=== PATIENT | male | born 1935 | race Caucasian/White ===

== ENCOUNTER 2021-09-21 22:28 | Inpatient (IN) | payer MEDICARE, MEDICAID, SELFPAY ==
[2021-09-21 21:29] VITALS: BMI 27.8
[2021-09-21 22:03] VITALS: BP 133/67; PULSE 83; RESP 16; TEMP 36.6; O2SAT 97
--- NOTE | 2021-09-21 22:18 | HP.PCM_ITS ---
[facility] - General General Date of Admission: 09/21/21 Date of Service: 09/21/21 Chief Complaint: Acute kidney failure HPI Narrative ELENA PAZ, is a 85 M who presents with chief complaint of mechanical fall with multiple contusions and abrasions. Patient has significant past medical history of fall 2 weeks ago with left upper extremity swelling and edema. Laboratory studies remarkable for an increase from creatinine level to 6.0 from baseline in the low twos. Patient denies chest pain, shortness of breath, fever or chills. Patient states his pain is under control at present time. He has a social history of having been 63 years and states his is living at home and hobbles around and when I asked if there was someone else that is looking after her he did not indicate that there was. Patient will be admitted for general medical floor with nephrology consult in the morning to consider dialysis. [facility] Medical History (Updated 09/21/21 @ 22:[address] Sae Connelly MD) Abdominal ascites Acute insomnia Atherosclerotic heart disease of [place] coronary artery without angina pectoris Benign prostatic hyperplasia without lower urinary tract symptoms Cardiomyopathy, unspecified Chronic kidney disease, stage 3 unspecified Cirrhosis Coronary artery disease Depression Diabetes Essential (primary) hypertension Former smoker GERD (gastroesophageal reflux disease) Heart failure, unspecified Hiatal hernia Hypertension ICD (implantable cardioverter-defibrillator) in place Insomnia Irregular heart beat Myocardial infarct Pressure ulcer, buttock Stroke/cerebrovascular accident Transient cerebral ischemic attack, unspecified Type 2 diabetes mellitus Unspecified atrial fibrillation Home Medications carvedilol 12.5 mg tablet 12.5 mg PO BID HEART 07/02/21 [History Last Taken 09/21/21 07:00] glipizide 5 mg tablet 5 mg PO BID DIABETES 07/02/21 [History Last Taken 09/21/21 07:00] omeprazole 20 mg capsule,delayed release 20 mg PO DAILY GERD 07/02/21 [History Last Taken Unknown] tamsulosin 0.4 mg capsule (Flomax) 0.4 mg PO BID URINATION 07/02/21 [History Last Taken Unknown] atorvastatin 40 mg tablet 40 tab PO QHS CHOLESTEROL 09/21/21 [History Last Taken Unknown] bumetanide 1 mg tablet 1 tab PO BID WATER PILL 09/21/21 [History Last Taken 09/21/21 07:00] Allergy/AdvReac Type Severity Reaction Status Date / Time No Known Allergies Allergy Verified 07/02/21 16:31 Family History (Updated 07/02/21 @ 16:38 by Thelma Reyes) Mother Bladder cancer Surgical History (Updated 09/21/21 @ 21:50 by Shelly Garcias) Hx of CABG Social History (Updated 07/02/21 @ 16:39 by Thelma Reyes) Smoking Status: Former smoker alcohol intake: current alcohol intake frequency: 0-2 drinks per day ROS Constitutional Constitutional: Denies anorexia Eyes Eyes: Denies change in vision ENT HEENT: Denies abnormal hearing Cardiovascular Cardiovascular: Denies chest pain Respiratory/Chest Respiratory/Chest: Denies cough Gastrointestinal Gastrointestinal: Denies abdominal pain Genitourinary Genitourinary: Denies dysuria Musculoskeletal Musculoskeletal: Denies extremity pain Integumentary Integumentary: Reports wounds Neurologic Neurologic: Denies abnormal speech Psychiatric Psychiatric: Denies anxiety Vital Signs Vital Signs Vital Signs: 09/21/21 22:03 Temperature 98 F Temperature Source Oral Pulse Rate 83 Respiratory Rate 16 Blood Pressure 133/67 H Blood Pressure Mean 89 Blood Pressure Source Monitor Blood Pressure Position Semi-Fowlers Blood Pressure Location Right Arm Pulse Ox 97 Oxygen Delivery Method Room Air Weight Weight: 194 lb Body Mass Index (BMI) 27.8 Physical Exam Const oriented x3 General Appearance: cooperative and well developed HEENT normocephalic HEENT Narrative: Abrasion on forehead and abrasion on nasal bridge Eyes PERRL and EOMs intact bilaterally Lymph Lymphatic: no lymphadenopathy noted Resp normal respiratory effort, normal air movement and clear to auscultation bilaterally Cardio regular rate, regular rhythm, S1 normal heart sound and S2 normal heart sound GI normal to inspection, nondistended, normoactive bowel sounds Extremity Extremity Narrative: Left upper extremity marked edema and ecchymosis Neuro CN's II-XII intact bilaterally Speech: speech normal Psych thought process normal Appearance: appropriate Assessment & Plan Assessment/Plan (1) Acute renal failure: (2) Coronary artery disease: (3) Diabetes: (4) Essential (primary) hypertension: (5) Depression: PLAN: Plan 1.?Acute renal failure?admit patient to general medical floor, consult Dr. Luis jensen n the a.m. Repeat BMP in the morning gentle IV hydration overnight at normal saline 100 cc/h 2. Depression?continue home medication 3. Diabetes?can check an A1c we will hold metformin 4. DVT prophylaxis?SCDs due to renal failure. Charges/Coding Visit Charges Inpatient E&M: 35102 Init Hosp L3
[2021-09-21] MEDS: Carvedilol 12.5 MG Tablet PO (23:09)
[2021-09-21] MEDS: Tamsulosin HCl 0.4 MG Capsule PO (23:10)
[2021-09-21] MEDS: Bumetanide 0.5 MG Tablet 1 MG PO (23:10)
[2021-09-21] MEDS: 0.9% Normal Saline 1,000 ML 100 ML IV (23:10)
[2021-09-21] MEDS: 0.9% Saline Lock 10 ML Syringe IV (23:10)
[2021-09-21] MEDS: glipiZIDE 5 MG Tablet PO (23:16)
[2021-09-21] MEDS: Morphine 2 MG/ML Syringe IV (23:23)
[2021-09-22 04:00] VITALS: BP 112/64; PULSE 72; RESP 16; TEMP 36.6; O2SAT 97
[2021-09-22 06:39] LABS: Anion Gap 12 (5-15); BUN 87 mg/dL (7-18); BUN/Creat Ratio 14.5 RATIO (10-20); Chloride 104 mmol/L (98-107); Creatinine, Serum 5.99 mg/dL (0.70-1.30); EST Glomerular Filtration Rate 10 mL/min (>60); Est Glom Filt Rate - Afr Amer 12 mL/min (>60); Estimated Creatinine Clearance 9.31 ml/min; Glucose 155 mg/dL (74-106); Potassium 3.9 mmol/L (3.5-5.1); Sodium Level 135 mmol/L (136-145)
[2021-09-22 09:32] VITALS: BP 98/68; PULSE 77; RESP 16; TEMP 36.7; O2SAT 95
[2021-09-22] MEDS: 0.9% Normal Saline 1,000 ML 100 ML IV ×2 (09:40→20:01)
--- NOTE | 2021-09-22 09:40 | CASEMGMT ---
Addendum entered by Ksenia Rothman 09/22/21 10:44: TC to pt , she states that she feels pt can return home with his HHC. States his HHC is [facility]. She states she will be in today around noon. TC to [facility], spoke with . She is unable to tell what services pt is receiving. She took down JENY SANDS name and number and will have nurse who saw the patient call. Original Note: JENY SANDS Assessment: Face to Face with pt for initial transition planning/care coordination assessment. JENY SANDS introduced self and role at [facility], pt voices understanding and consents to assessment. Pt is A/O x4 and answers all questions appropriately at this time. Pt sitting in bed in no distress. Care providers, pharmacy, and demographics verified/updated. Admitting Dx: acute renal failure PCP:Maury Specialists:[facility]; pt is unsure of any other specialists [facility] Insurance: [employer] [facility] Prescription Benefit: yes LW/HPOA: Pt states he has a LW/DPOA and his DPOA is his , Tawnya Alejo. He is aware it is not on file at [facility] and he may bring in to be scanned into the chart. LNOK: Tawnya Alejo, Living Arrangements: Pt lives with in a two story apartment with 2 steps to enter without a rail. Pt states he has 12 steps to go to the bedroom. Pt sponge bathes self only. Pt denies concerns at home although has fallen twice recently and just got out of the hospital last week. Transportation: Pt has not drove since last November d/t his vision. Pt transports him to medical appts. Pt denies concerns with transportation. DME/HHC/SNF: Pt has a cane that he uses. He also has a walker, grab bars in the bathroom. Pt does not have a BGM, states he does not check his blood sugars. Reports he does not need to as his hgb A1C is 5.8. Pt states he has HHC that was set up from the last hospital stay from [place] that is supposed to see him today. He is unsure of what the name of the agency is or what services he will be receiving. Pt states he has been to [facility] but states he has no interest in returning to any SNF and does not even want it mentioned to him. Discussed that he has fallen twice recently, pt states he will just use his walker. Discussed with him that we will see how well he does with therapy and what recommendations are made. He is agreeable to this. Pt states no concerns with going home at time of dc. He has designated his to be his sportspersons for dc planning. He states that she is at home worrying, so not to talk to her too much. Pt states no further concerns/needs. CM to follow. Advised pt to ask CM if any further question/concerns/needs arise, voices understanding. Pt Goal: Home with HHC resumption Plan: TBD
[2021-09-22] MEDS: Carvedilol 12.5 MG Tablet PO ×2 (09:41→16:59)
[2021-09-22] MEDS: Glucerna Shake 120 ML LIQUID PO ×3 (09:41→16:59)
[2021-09-22] MEDS: Tamsulosin HCl 0.4 MG Capsule PO ×2 (09:41→21:24)
[2021-09-22] MEDS: Pantoprazole Sodium 20 MG Tablet PO (09:42)
[2021-09-22] MEDS: glipiZIDE 5 MG Tablet PO (09:42)
[2021-09-22 09:44] LABS: International Normalized Ratio 1.3; Prothrombin Time (Protime)PT. 15.5 SECONDS (11.7-14.9)
[2021-09-22 09:48] LABS: Absolute Lymphocyte Count 1.46 X10^3/uL (0.83-4.51); Absolute Neutrophil Count 3.9 X10^3/uL (2.0-7.7); Basophil# 0.01 X10^3/uL; Basophil% 0.2 % (0-1); Eosinophil# 0.19 X10^3/uL; Eosinophils% 2.9 % (0-5); Hematocrit 29.3 % (40-54); Hemoglobin 9.8 g/dL (13.0-16.5); Lymphocyte # 1.46 X10^3/ul (0.83-4.51); Lymphocyte % 22.3 % (19-41); Mean Corp Hgb Conc 33.4 g/dL (32-36); Mean Corpuscular Hgb 32.2 pg (27.0-32.0); Mean Corpuscular Volume 96.4 fL (80-94); Mean Platelet Vol. 10.8 fl (6.2-12.0); Monocyte# 0.93 X10^3/uL; Monocyte% 14.2 % (0-10); NRBC Flagged by Analyzer 0 % (0-5); Neutrophil # 3.94 X10^3/uL (2.7-7.7); Neutrophil % 60.2 % (47-70); Platelet Count 132 K/mm3 (150-450); RBC Distribution Width CV 14.1 % (11.6-14.6); RBC Distribution Width SD 49.4 fl (35.1-43.9); Red Blood Count 3.04 M/mm3 (4.6-6.2); White Blood Count 6.5 K/mm3 (4.4-11.0)
--- NOTE | 2021-09-22 10:33 | PCM.PN.HOSP ---
Subjective Subjective Doing well, no issues overnight. States that he tripped on the curb and fell denies any lightheadedness or dizziness. Objective Data Objective Data Vital Signs: Vital Signs Temp Pulse Resp BP Pulse Ox 98.1 F 77 16 98/68 95 09/22/21 09:32 09/22/21 09:32 09/22/21 09:32 09/22/21 09:32 09/22/21 09:32 Oxygen Delivery Method Room Air Weight: 194 lb Body Mass Index (BMI) 27.8 Intake & Output: Intake and Output for Last 24 Hours 09/21/21 09/22/21 09/23/21 03:59 03:59 03:59 Intake Total 1000 / 1000 Output Total 250 / 250 Balance 750 / 750 Lab / Micro Data Result Diagrams: 09/22/21 05:23 09/22/21 05:23 Labs: Laboratory Results - last 24 hr 09/22/21 05:23: Sodium 135 L, Potassium 3.9, Chloride 104, Carbon Dioxide 19.0 L, Anion Gap 12, BUN 87 H, Creatinine 5.99 H, Estim Creat Clear Calc 9.31, Est GFR (MDRD) Af Amer 12 L, Est GFR (MDRD) Non-Af 10 L, BUN/Creatinine Ratio 14.5, Glucose 155 H, Calcium 8.0 L 09/22/21 05:23: WBC 6.5, RBC 3.04 L, Hgb 9.8 L, Hct 29.3 L, MCV 96.4 H, MCH 32.2 H, MCHC 33.4, RDW Std Deviation 49.4 H, RDW Coeff of Jewels 14.1, Plt Count 132 L, MPV 10.8, Immature Gran % (Auto) 0.200, Neut % (Auto) 60.2, Lymph % (Auto) 22.3, [place] % (Auto) 14.2 H, Eos % (Auto) 2.9, Baso % (Auto) 0.2, Absolute Neuts (auto) 3.9, Absolute Lymphs (auto) 1.46, Nucleated RBC % 0 09/22/21 05:23: PT 15.5 H, INR 1.3 Physical Exam Const alert, oriented x3 and no apparent distress General Appearance: cooperative HEENT normocephalic and moist oral mucous membranes Eyes PERRL, EOMs intact bilaterally and conjunctivae normal Neck supple and no JVD Resp normal respiratory effort, no retractions and no use of accessory muscles Auscultation: diminished lung sounds; Negative for crackles, rales, rhonchi or wheezes Cardio regular rate, regular rhythm, S1 normal heart sound, S2 normal heart sound and no murmurs GI soft to palpation, non-tender and non-distended; Negative for hepatosplenomegaly Extremity no clubbing, cyanosis or edema Skin Skin Narrative: Multiple lacerations and abrasions over his face and right upper extremity. He has significant bruising and swelling over his left upper extremity from a fall previously. He says it is painful but sensation is intact. Neuro no focal motor deficits and no sensory deficits noted Psych affect normal Appearance: appropriate Assessment & Plan Assessment/Plan (1) Acute renal failure: (2) Coronary artery disease: (3) Diabetes: (4) Essential (primary) hypertension: (5) Depression: PLAN: Plan 1. Acute renal failure/weakness and debility ? Unsure as to the etiology, he is on Bumex at home as well as Coreg ? We will continue with gentle IV hydration and nephrology was consulted for evaluation and assistance in management ? We will consult wound care to help with the use will multiple superficial wounds. ? PT/OT for evaluation and placement in a SNF 2. CAD status post CABG/HTN ? Blood pressures are stable, will continue with his home Coreg ? Hold his Bumex secondary to his renal failure ? Continue with Lipitor 3. DM2 ? Stable ? Hold his home patient placed on a sliding scale insulin 4. GERD ? Stable ? Continue with PPI 5. BPH ? Stable ? Continue with Flomax DVT: SCD's Charges/Coding Visit Charges Inpatient E&M: 01721 Subs Hosp L2
[2021-09-22] MEDS: Bumetanide 0.5 MG Tablet 1 MG PO (10:56)
[2021-09-22 12:05] LABS: Bedside Glucose 160 mg/dL (74-106)
[2021-09-22 14:13] VITALS: BP 97/64; PULSE 71; RESP 18; TEMP 36.7; O2SAT 96
--- NOTE | 2021-09-22 14:31 | CHAPLAIN ---
Type of Pastoral Visit _x__ Initial Visit ___ Follow-up Visit ___ On-call Visit ___ General Patient Visit ___ Spiritual Assessment ___ Family Conference ___ Bereavement ___ Rapid Response ___ Code Blue ___ Other (describe below) Pastoral Care Referral From _x__ Patient ___ Family ___ Nurse ___ Physician ___ Safekeeping Clerk ___ Upper Inspector ___ Other (describe below) Sacrament/Intervention _x__ Active listening ___ Anointing ___ Rastafarian ___ Bereavement ___ Communion ___ Wilda exploration ___ ___ Life review _x__ Prayer ___ Reconciliation ___ Sacrament of Sick _x__ Supportive presence ___ Wedding ___ Other (describe below) Pastoral Comments patient, spouse, and daughter in room; pt states he just wants to go home; pt speaks of his fall and that he does not want to go to a SNF; pt and spouse mention frustrations at not seeing doctors and knowing more about his condition; assurances and compassion given; offer of presence and prayer support which are received by family and pt;
--- NOTE | 2021-09-22 15:29 | CASEMGMT ---
ANNIA from Nelida at [facility] who states pt is active with them with SN, PT and OT services. Spoke with PT regarding pt progress. States pt does not want to go to SNF.
--- NOTE | 2021-09-22 15:58 | PCM.CONS.R ---
Assessment & Plan Assessment/Plan (1) Acute renal failure: PLAN: Creatinine 6.0 baseline unknown however per patient history has been told his creatinine was 2.0 without prior nephrologic evaluation. Will wait on records from [facility] and his PCP office to see if there has been any ultrasounds done in the past. In the meantime continue with diuretics since he has diffuse edema, ascites. Check urine sodium to see if he may have cardiorenal syndrome. History of liver disease, cirrhosis. He may have hepatorenal syndrome as well. Consider GI evaluation. He has coronary artery disease status post CABG with cardiomyopathy status post defibrillator. Suspect that he may have cardiorenal syndrome. He has had diarrhea following his hospitalization at [facility] for pneumonia discharged on antibiotic therapy. Avoid nephrotoxic agents. DW primary service (2) Coronary artery disease: PLAN: Status post CABG and defibrillator. Obtain echo report. EF apparently has been at 35% according to the patient family (3) Diabetes: PLAN: Avoid metformin (4) Essential (primary) hypertension: PLAN: BP stable (5) BPH (benign prostatic hyperplasia): PLAN: History of TURP (6) Cardiomyopathy: PLAN: Status post defibrillator (7) Ascites: PLAN: Requiring paracentesis every 1 to 2 weeks for the past 3 months managed by PCP. (8) Cirrhosis: PLAN: Suggest GI consult. AST ALT have been unremarkable with no history of alcohol use HPI Consult Data Date of Consult: 09/23/21 HPI Narrative Reason for Consultation: Acute renal failure on CKD HPI Narrative: ELENA PAZ, is a 85 M who presents to [facility] transfer from [facility] ER for acute renal failure, left arm hematoma following a fall at his PCPs office yesterday. He was hospitalized at [facility] recently about couple weeks ago for pneumonia started on antibiotic therapy. He complained of diarrhea. He had swelling of his left arm from his initial fall that led to his hospitalization at [facility]. He was discharged home with a diagnosis of CKD that he was not aware of. He had home therapy arranged but has not come out to the house yet. He has a history of cardiomyopathy with defibrillator. He is on diuretic therapy at home. He was told that he had liver disease and required paracentesis about every 2 weeks for the past 3 months according to the daughter present as well as his at his bedside. He had a referral to GI but no therapy was done since records were not sent to GI specialist in [place] that he was able to see sooner. He canceled his appointment with Dr. Lopez in [facility]. They state that his PCP told him that his creatinine was 2.0 in the past and was told not to worry about it. Creatinine at [facility] was 6.28. Creatinine on admission was 5.99. No prior records are available from [facility]. He has a history of BPH status post TURP. He has fallen in the past with right hip fracture. He has swelling of his left arm with ecchymosis, hematoma with significant tenderness to light touch. He has had skin abrasions from trauma. [facility] Medical History (Updated 09/22/21 @ 16:[address] Celeste Smith DO) Abdominal ascites Acute insomnia Atherosclerotic heart disease of [place] coronary artery without angina pectoris Benign prostatic hyperplasia without lower urinary tract symptoms Cardiomyopathy, unspecified Chronic kidney disease, stage 3 unspecified Cirrhosis Coronary artery disease Depression Diabetes Essential (primary) hypertension Former smoker GERD (gastroesophageal reflux disease) Heart failure, unspecified Hiatal hernia Hypertension ICD (implantable cardioverter-defibrillator) in place Insomnia Irregular heart beat Myocardial infarct Pressure ulcer, buttock Stroke/cerebrovascular accident Transient cerebral ischemic attack, unspecified Type 2 diabetes mellitus Unspecified atrial fibrillation Home Medications carvedilol 12.5 mg tablet 12.5 mg PO BID HEART 07/02/21 [History Last Taken 09/21/21 07:00] glipizide 5 mg tablet 5 mg PO BID DIABETES 07/02/21 [History Last Taken 09/21/21 07:00] omeprazole 20 mg capsule,delayed release 20 mg PO DAILY GERD 07/02/21 [History Last Taken Unknown] tamsulosin 0.4 mg capsule (Flomax) 0.4 mg PO BID URINATION 07/02/21 [History Last Taken 09/20/21 21:00] atorvastatin 40 mg tablet 40 tab PO QHS CHOLESTEROL 09/21/21 [History Last Taken 09/20/21 21:00] bumetanide 1 mg tablet 1 tab PO BID WATER PILL 09/21/21 [History Last Taken 09/21/21 07:00] Allergy/AdvReac Type Severity Reaction Status Date / Time No Known Allergies Allergy Verified 07/02/21 16:31 Family History (Updated 07/02/21 @ 16:38 by Thelma Reyes) Mother Bladder cancer Surgical History (Updated 09/22/21 @ 16:[address] Celeste Smith DO) History of hip surgery Hx of CABG Social History (Updated 07/02/21 @ 16:39 by Thelma Reyes) Smoking Status: Former smoker alcohol intake: current alcohol intake frequency: 0-2 drinks per day ROS Constitutional Constitutional: Reports weakness; Denies chills or fever(s) Eyes Eyes: Denies loss of vision ENT HEENT: Denies nasal congestion Cardiovascular Cardiovascular: Reports edema and other Details: Defibrillator, CABG ; Denies chest pain, dyspnea on exertion, palpitations or syncope Respiratory/Chest Respiratory/Chest: Denies dyspnea on exertion or hemoptysis Gastrointestinal Gastrointestinal: Reports diarrhea; Denies abdominal pain, anorexia, hematemesis, hematochezia or nausea Genitourinary Genitourinary: Reports other Details: No change in urinary volume, denied hesitancy, history of BPH ; Denies change in urinary stream, difficulty urinating or urinary incontinence Musculoskeletal Musculoskeletal: Reports other Details: Fell and tripped at PCPs office yesterday. History of falling 2 weeks ago with hospitalization at [place] Integumentary Integumentary: Reports lesions and other Details: Left upper arm swelling with hematoma on the dorsum of hand, stitches in left thumb, skin abrasions Neurologic Neurologic: Reports weakness Psychiatric Psychiatric: Denies anxiety or confusion Endocrine Endocrinology: Denies cold intolerance or fatigue Hematologic/Lymphatic Hematologic/Lymphatic: Reports easy bruising Physical Exam Const alert, oriented x3 and no apparent distress General Appearance: frail HEENT HEENT Narrative: Forehead abrasion bridge of nose abrasion Eyes EOMs intact bilaterally and no scleral icterus Neck no JVD Resp clear to auscultation bilaterally Cardio regular rate Cardio Narrative: Defibrillator GI non-tender GI Narrative: Distended abdomen Auscultation: normoactive bowel sounds Palpation: ascites Narrative: Unable to assess Back/Spine Back/Spine Narrative: Unable to assess patient lying down Extremity Extremity Narrative: Mild bilateral lower extremity edema, left knee abrasion Skin Skin Narrative: Ecchymosis hematoma dorsum of left hand with swelling left upper extremity, wound abrasions General Skin Exam: ecchymosis and erythema Wounds: wounds noted Neuro moves all extremities Sensorium / Orientation: awake and alert Psych cooperative Lab / Micro Data Result Diagrams: 09/23/21 04:18 09/23/21 04:18 Labs: Laboratory Results - last 24 hr 09/22/21 05:23: Sodium 135 L, Potassium 3.9, Chloride 104, Carbon Dioxide 19.0 L, Anion Gap 12, BUN 87 H, Creatinine 5.99 H, Estim Creat Clear Calc 9.31, Est GFR (MDRD) Af Amer 12 L, Est GFR (MDRD) Non-Af 10 L, BUN/Creatinine Ratio 14.5, Glucose 155 H, Calcium 8.0 L 09/22/21 05:23: WBC 6.5, RBC 3.04 L, Hgb 9.8 L, Hct 29.3 L, MCV 96.4 H, MCH 32.2 H, MCHC 33.4, RDW Std Deviation 49.4 H, RDW Coeff of Jewels 14.1, Plt Count 132 L, MPV 10.8, Immature Gran % (Auto) 0.200, Neut % (Auto) 60.2, Lymph % (Auto) 22.3, [place] % (Auto) 14.2 H, Eos % (Auto) 2.9, Baso % (Auto) 0.2, Absolute Neuts (auto) 3.9, Absolute Lymphs (auto) 1.46, Nucleated RBC % 0 09/22/21 05:23: PT 15.5 H, INR 1.3 09/22/21 11:43: POC Glucose 160 H
[2021-09-22 16:56] VITALS: O2SAT 96
[2021-09-22] MEDS: Insulin Lispro 100 UNIT/ML INSULN.PEN SC (16:59)
[2021-09-22 19:13] LABS: Urine Sodium 20 mmol/L (Not Establ.)
[2021-09-22 20:10] VITALS: BP 125/96; PULSE 90; RESP 16; TEMP 36.7; O2SAT 97
[2021-09-22 20:16] LABS: Bedside Glucose 212 mg/dL (74-106)
[2021-09-22] MEDS: Atorvastatin Calcium 40 MG Tablet PO (21:24)
[2021-09-22 21:40] LABS: Bedside Glucose 139 mg/dL (74-106)
[2021-09-23 02:00] VITALS: BP 118/78; PULSE 74; RESP 16; TEMP 36.6; O2SAT 95
[2021-09-23 05:19] LABS: Absolute Lymphocyte Count 1.34 X10^3/uL (0.83-4.51); Absolute Neutrophil Count 4.5 X10^3/uL (2.0-7.7); Basophil# 0.01 X10^3/uL; Basophil% 0.1 % (0-1); Eosinophil# 0.18 X10^3/uL; Eosinophils% 2.6 % (0-5); Hematocrit 28.4 % (40-54); Hemoglobin 9.2 g/dL (13.0-16.5); Lymphocyte # 1.34 X10^3/ul (0.83-4.51); Lymphocyte % 19.2 % (19-41); Mean Corp Hgb Conc 32.4 g/dL (32-36); Mean Corpuscular Hgb 32.1 pg (27.0-32.0); Mean Platelet Vol. 10.4 fl (6.2-12.0); Monocyte# 0.94 X10^3/uL; Monocyte% 13.5 % (0-10); NRBC Flagged by Analyzer 0 % (0-5); Neutrophil # 4.48 X10^3/uL (2.7-7.7); Neutrophil % 64.3 % (47-70); Platelet Count 122 K/mm3 (150-450); RBC Distribution Width CV 14.1 % (11.6-14.6); RBC Distribution Width SD 51.3 fl (35.1-43.9); Red Blood Count 2.87 M/mm3 (4.6-6.2)
[2021-09-23 05:43] LABS: Anion Gap 12 (5-15); BUN 85 mg/dL (7-18); BUN/Creat Ratio 15.1 RATIO (10-20); Calcium,Total 7.6 mg/dL (8.5-10.1); Chloride 107 mmol/L (98-107); Creatinine, Serum 5.63 mg/dL (0.70-1.30); EST Glomerular Filtration Rate 10 mL/min (>60); Est Glom Filt Rate - Afr Amer 12 mL/min (>60); Glucose 115 mg/dL (74-106); Potassium 4.1 mmol/L (3.5-5.1); Sodium Level 137 mmol/L (136-145)
[2021-09-23] MEDS: 0.9% Normal Saline 1,000 ML 100 ML IV ×2 (06:21→17:40)
[2021-09-23 06:40] LABS: Bedside Glucose 78 mg/dL (74-106)
[2021-09-23 08:03] VITALS: BP 98/67; PULSE 92; RESP 18; TEMP 36.8; O2SAT 97
[2021-09-23] MEDS: Pantoprazole Sodium 20 MG Tablet PO (08:18)
[2021-09-23] MEDS: Carvedilol 12.5 MG Tablet PO ×2 (08:18→16:27)
[2021-09-23] MEDS: Tamsulosin HCl 0.4 MG Capsule PO ×2 (08:18→20:34)
--- NOTE | 2021-09-23 08:34 | PCM.PN.REN ---
Subjective Subjective denied CP, SOB, nausea, vomiting. Appetite good. Still with left arm swelling and pain, hematoma Objective Data Objective Data Vital Signs: Vital Signs Temp Pulse Resp BP Pulse Ox 98.2 F 92 18 98/67 97 09/23/21 08:03 09/23/21 08:03 09/23/21 08:03 09/23/21 08:03 09/23/21 08:03 Oxygen Delivery Method Room Air Weight: 87.997 kg Body Mass Index (BMI) 27.8 Intake & Output: Intake and Output for Last 24 Hours 09/21/21 09/22/21 09/23/21 23:59 23:59 23:59 Intake Total 1999 / 1999 1000 / 1000 Output Total 450 / 450 50 / 50 Balance 1550 / 1550 950 / 950 Lab / Micro Data Result Diagrams: 09/23/21 04:18 09/23/21 04:18 Labs: Laboratory Results - last 24 hr 09/22/21 05:23: Sodium 135 L, Potassium 3.9, Chloride 104, Carbon Dioxide 19.0 L, Anion Gap 12, BUN 87 H, Creatinine 5.99 H, Estim Creat Clear Calc 9.31, Est GFR (MDRD) Af Amer 12 L, Est GFR (MDRD) Non-Af 10 L, BUN/Creatinine Ratio 14.5, Glucose 155 H, Calcium 8.0 L 09/22/21 05:23: WBC 6.5, RBC 3.04 L, Hgb 9.8 L, Hct 29.3 L, MCV 96.4 H, MCH 32.2 H, MCHC 33.4, RDW Std Deviation 49.4 H, RDW Coeff of Jewels 14.1, Plt Count 132 L, MPV 10.8, Immature Gran % (Auto) 0.200, Neut % (Auto) 60.2, Lymph % (Auto) 22.3, [place] % (Auto) 14.2 H, Eos % (Auto) 2.9, Baso % (Auto) 0.2, Absolute Neuts (auto) 3.9, Absolute Lymphs (auto) 1.46, Nucleated RBC % 0 09/22/21 05:23: PT 15.5 H, INR 1.3 09/22/21 11:43: POC Glucose 160 H 09/22/21 16:53: POC Glucose 212 H 09/22/21 18:47: Ur Random Sodium 20 09/22/21 18:47: Urine Creatinine 78.70 09/22/21 21:23: POC Glucose 139 H 09/23/21 04:18: WBC 7.0, RBC 2.87 L, Hgb 9.2 L, Hct 28.4 L, MCV 99.0 H, MCH 32.1 H, MCHC 32.4, RDW Std Deviation 51.3 H, RDW Coeff of Jewels 14.1, Plt Count 122 L, MPV 10.4, Immature Gran % (Auto) 0.300, Neut % (Auto) 64.3, Lymph % (Auto) 19.2, [place] % (Auto) 13.5 H, Eos % (Auto) 2.6, Baso % (Auto) 0.1, Absolute Neuts (auto) 4.5, Absolute Lymphs (auto) 1.34, Nucleated RBC % 0 09/23/21 04:18: Sodium 137, Potassium 4.1, Chloride 107, Carbon Dioxide 18.0 L, Anion Gap 12, BUN 85 H, Creatinine 5.63 H, Estim Creat Clear Calc 9.90, Est GFR (MDRD) Af Amer 12 L, Est GFR (MDRD) Non-Af 10 L, BUN/Creatinine Ratio 15.1, Glucose 115 H, Calcium 7.6 L 09/23/21 06:18: POC Glucose 78 Physical Exam Narrative stable Const alert, oriented x3 and no apparent distress General Appearance: frail HEENT Head and Scalp: laceration Laceration Size: forehead, bridge of nose abrasions Eyes EOMs intact bilaterally and no scleral icterus Neck no JVD Resp clear to auscultation bilaterally Cardio regular rate Cardio Narrative: Defibrillator GI non-tender GI Narrative: Distended abdomen Auscultation: normoactive bowel sounds Palpation: ascites Narrative: Unable to assess Back/Spine Back/Spine Narrative: Unable to assess patient lying down Extremity Extremity Narrative: Mild bilateral lower extremity edema, left knee abrasion Skin Skin Narrative: Ecchymosis hematoma dorsum of left hand with swelling left upper extremity, wound abrasions General Skin Exam: ecchymosis and erythema Wounds: wounds noted Neuro moves all extremities Sensorium / Orientation: awake and alert Psych cooperative Assessment & Plan Assessment/Plan (1) Acute renal failure: PLAN: Creatinine improved to 5.6. Remains oliguric. Await records from [place] and PCP office. Consider renal US if not done during recent hospitalization at [place] (2) Coronary artery disease: PLAN: Status post CABG and defibrillator. Obtain echo report. EF on most recent echo apparently has been at 35% according to the patient family but as low as 10% (3) Diabetes: PLAN: Avoid metformin (4) Essential (primary) hypertension: PLAN: BP stable (5) BPH (benign prostatic hyperplasia): PLAN: History of TURP (6) Cardiomyopathy: PLAN: Status post defibrillator (7) Ascites: PLAN: Requiring paracentesis every 1 to 2 weeks for the past 3 months managed by PCP. (8) Cirrhosis: PLAN: Suggest GI consult. AST ALT have been unremarkable with no history of alcohol use
[2021-09-23 08:58] LABS: AST(SGOT) 33 U/L (15-37); Alanine Aminotransfer ALT/SGPT 31 U/L (16-61); Albumin, Serum 1.8 g/dL (3.2-5.0); Alkaline Phosphatase 317 U/L (45-117); Bilirubin, Direct 0.33 mg/dL (0.00-0.30); Protein, Total 4.8 g/dL (6.4-8.2)
--- NOTE | 2021-09-23 09:58 | PN.HOSP_ITS ---
Subjective Subjective Doing about the same today, no issues overnight. Continues to have abdominal distention and says that his last paracentesis was a week ago Tuesday Objective Data Objective Data Vital Signs: Vital Signs Temp Pulse Resp BP Pulse Ox 98.2 F 92 18 98/67 97 09/23/21 08:03 09/23/21 08:03 09/23/21 08:03 09/23/21 08:03 09/23/21 08:03 Oxygen Delivery Method Room Air Weight: 194 lb 0.003 oz Body Mass Index (BMI) 27.8 Intake & Output: Intake and Output for Last 24 Hours 09/22/21 09/23/21 09/24/21 03:59 03:59 03:59 Intake Total 1999 / 1999 1000 / 1000 Output Total 450 / 450 50 / 50 Balance 1550 / 1550 950 / 950 Lab / Micro Data Result Diagrams: 09/23/21 04:18 09/23/21 04:18 Labs: Laboratory Results - last 24 hr 09/22/21 11:43: POC Glucose 160 H 09/22/21 16:53: POC Glucose 212 H 09/22/21 18:47: Ur Random Sodium 20 09/22/21 18:47: Urine Creatinine 78.70 09/22/21 21:23: POC Glucose 139 H 09/23/21 04:18: WBC 7.0, RBC 2.87 L, Hgb 9.2 L, Hct 28.4 L, MCV 99.0 H, MCH 32.1 H, MCHC 32.4, RDW Std Deviation 51.3 H, RDW Coeff of Jewels 14.1, Plt Count 122 L, MPV 10.4, Immature Gran % (Auto) 0.300, Neut % (Auto) 64.3, Lymph % (Auto) 19.2, [place] % (Auto) 13.5 H, Eos % (Auto) 2.6, Baso % (Auto) 0.1, Absolute Neuts (auto) 4.5, Absolute Lymphs (auto) 1.34, Nucleated RBC % 0 09/23/21 04:18: Sodium 137, Potassium 4.1, Chloride 107, Carbon Dioxide 18.0 L, Anion Gap 12, BUN 85 H, Creatinine 5.63 H, Estim Creat Clear Calc 9.90, Est GFR (MDRD) Af Amer 12 L, Est GFR (MDRD) Non-Af 10 L, BUN/Creatinine Ratio 15.1, Gluc ose 115 H, Calcium 7.6 L 09/23/21 06:18: POC Glucose 78 09/23/21 08:07: Total Bilirubin 0.70, Direct Bilirubin 0.33 H, AST 33, ALT 31, Alkaline Phosphatase 317 H, Total Protein 4.8 L, Albumin 1.8 L, Globulin 3.0 Physical Exam Narrative Const alert, oriented x3 and no apparent distress General Appearance: cooperative HEENT normocephalic and moist oral mucous membranes Eyes PERRL, EOMs intact bilaterally and conjunctivae normal Neck supple and no JVD Resp normal respiratory effort, no retractions and no use of accessory muscles Auscultation: diminished lung sounds; Negative for crackles, rales, rhonchi or wheezes Cardio regular rate, regular rhythm, S1 normal heart sound, S2 normal heart sound and no murmurs GI soft to palpation, non-tender, distended consistent with ascites Extremity no clubbing, cyanosis or edema Skin Skin Narrative: Multiple lacerations and abrasions over his face and right upper extremity.? He has significant bruising and swelling over his left upper extremity from a fall previously.? He says it is painful but sensation is intact. Neuro no focal motor deficits and no sensory deficits noted Psych affect normal Appearance: appropriate Assessment & Plan Assessment/Plan (1) Acute renal failure: (2) Coronary artery disease: (3) Diabetes: (4) Essential (primary) hypertension: (5) Depression: PLAN: Plan 1. Acute renal failure/weakness and debility ? Unsure as to the etiology, he is on Bumex at home as well as Coreg ? We will continue with gentle IV hydration and nephrology was consulted for evaluation and assistance in management ? We will consult wound care to help with the use will multiple superficial wounds. ? PT/OT for evaluation and placement in a SNF 2. Possible cirrhosis with ascites ? Continue with his PPI ? We will consult gastroenterology ? Will request records from [place] ? We will obtain a liver panel as well as a hepatitis panel today ? We will hold off on any imaging pending records from [place] to see what was done and read that there first. 3. CAD status post CABG/HTN ? Blood pressures are stable, will continue with his home Coreg ? Hold his Bumex secondary to his renal failure ? Continue with Lipitor 4. DM2 ? Stable ? Hold his home patient placed on a sliding scale insulin 5. GERD ? Stable ? Continue with PPI 6. BPH ? Stable ? Continue with Flomax DVT: SCD's Charges/Coding Visit Charges Inpatient E&M: 26908 Subs Hosp L2
--- NOTE | 2021-09-23 10:49 | WOUNDNOTE ---
skin photo: left arm
--- NOTE | 2021-09-23 10:50 | WOUNDNOTE ---
wound photo: right hand/arm
--- NOTE | 2021-09-23 10:50 | WOUNDNOTE ---
wound photo: left knee
--- NOTE | 2021-09-23 10:51 | WOUNDNOTE ---
wound photo: right shoulder
[2021-09-23 11:41] LABS: Bedside Glucose 135 mg/dL (74-106)
--- NOTE | 2021-09-23 11:53 | CASEMGMT ---
JENY SANDS in to pt room, pt two daughters and present in room. Discussed dc planning, pt became upset and states he already discussed this. Pt dtrs stated pt should not return home initially. Spoke with [facility] who states that the insurance has only authorized 4 visits for therapy. Made pt aware it may be beneficial for him to have daily therapy in a SNF then go home and have HHC. Provided pt with a list of SNF providers including quality and resource use data and consistent with the patient?s preferred geographic region, medical needs, and insurance network. Patient states he will consider this. JENY SANDS to check back.
[2021-09-23 14:00] VITALS: BP 103/65; PULSE 92; RESP 18; TEMP 36.7; O2SAT 95
[2021-09-23] MEDS: Bumetanide 0.5 MG Tablet 1 MG PO (15:42)
[2021-09-23] MEDS: Insulin Lispro 100 UNIT/ML INSULN.PEN SC (16:25)
[2021-09-23] MEDS: Glucerna Shake 120 ML LIQUID PO (16:27)
--- NOTE | 2021-09-23 16:29 | CT_ITS ---
INDICATION: ascites EXAMINATION: CT ABDOMEN AND PELVIS WITHOUT CONTRAST - CT Abdomen And Pelvis W/O Contrast Injection TECHNIQUE: Helically acquired images were obtained of the abdomen and pelvis without oral or IV contrast. A radiation dose optimization technique was used for this scan. IV Contrast dosage and agent: None. Oral contrast: None. COMPARISON: None. FINDINGS: LOWER CHEST: Small left pleural effusion and moderate overlying atelectasis. No cardiomegaly or pericardial effusion. Cardiac pacing leads are present. LIVER: Small micronodular contour consistent with cirrhosis. No appreciable mass lesion on this unenhanced exam. Normal density. GALLBLADDER AND BILIARY TREE: Hyperdensity seen in the region of the gallbladder may represent stones and/or sludge. No distinguishable stones or suggestive of sludge or potentially vicarious excretion of contrast or hemorrhage. Gallbladder wall is not clearly visible from surrounding ascites. No intra- or extrahepatic biliary ductal dilation. PANCREAS: No focal cystic or solid mass. There is mild fatty atrophy. SPLEEN: Normal size without focal cystic or solid mass. ADRENAL GLANDS: No nodules. KIDNEYS, URETERS and BLADDER: Normal position bilateral kidneys. Right kidney is smaller than the left; 7.8 mm on the right and 10.3 cm on the left. No hydronephrosis. Lobular contours seen in the right and left kidney potentially representing small cysts or mass lesions, less than 1.5 cm maximum dimension. No significant cortical thinning. No genitourinary stone. Right extrarenal pelvis noted. SORIANO catheter seen in the urinary bladder. PERITONEUM: Significant intra-abdominal ascites. No suspicious focal fluid collection. No free air. BOWEL: No evidence of acute appendicitis. No abnormally distended bowel loops or air fluid levels. No wall thickening or mass. No focal inflammatory changes. Note that assessment is limited due to lack of intravenous contrast and significant ascites. LYMPH NODES: No enlarged mesenteric or retroperitoneal lymph nodes on this limited assessment. VESSELS: Aorta is non-dilated. Atherosclerotic intimal calcifications, aorta and branch vessels including the renal arteries. REPRODUCTIVE ORGANS: Large prostate gland. ABDOMINAL WALL: Distended, protruding abdomen. BONES: Right hip arthroplasty hardware within normal limits of the exam. Abnormal lateral curvature of the spine likely degenerative. No appreciable fracture there does appear to be subjective decreased bone mineral density. There are significant multilevel advanced degenerative disc and endplate changes as well as facet arthropathy, especially on the right side, lower lumbar spine with significant central spinal canal stenosis demonstrated at the L4-5 level and moderate to severe stenosis at L3-[address]/Abdomen/Pelvis without Cont IMPRESSION: Significant intra-abdominal ascites. Small left pleural effusion and moderate overlying airspace disease most likely representing atelectasis. Hyperdensity in the gallbladder most likely representing sludge or multiple indistinguishable small stones. Asymmetrically smaller right kidney compared to the left. No significant cortical thinning. Atherosclerosis abdominal aorta and branch vessels. Advanced degenerative changes lumbar spine with severe Central spinal canal stenosis L3-4 and L4-5 levels. Electronically Signed: Devon Parmar DO at 20:14 EDT ,
--- NOTE | 2021-09-23 16:47 | PCM.CONS.GEN ---
Assessment & Plan Assessment/Plan (1) Cirrhosis: PLAN: The differential diagnosis for cirrhosis would be cardiac cirrhosis secondary to severe cardiomyopathy with CHF, Crowell related cirrhosis secondary to long-term diabetes, less likely viral hepatitis, PBC or autoimmune hepatitis. I will check an ammonia level along with labs for viral hepatitis. He will likely need ursodiol 250 mg p.o. twice daily, Xifaxan 5 and 50 mg twice daily, lactulose twice daily. (2) Ascites: PLAN: He will undergo large-volume paracentesis and we will need to perform a SAG gradient to turn as this is cirrhosis secondary to Crowell or cardiogenic ascites. We will also need cytology to make sure there is no signs of peritoneal carcinomatosis (3) Acute renal failure: PLAN: Most cases of HRS have urine sodium?<10 mmol/L?and urine osmolality above plasma osmolality because the tubular function is preserved. However, a minority of patients may have higher urine sodium and low urine osmolality, similar to values found in acute tubular necrosis. I will place him on midodrine 10 mg 3 times daily, albumin 25 mg 3 times daily and octreotide 100 mcg 3 times daily HPI Consult Data Date of Consult: 09/23/21 HPI Narrative Reason for Consultation: Ascites HPI Narrative: ELENA PAZ, is a 85 M who presents?to [facility] transfer from [facility] ER for acute renal failure, left arm hematoma following a fall at his PCPs office yesterday.? Almost all of his history is obtained from the daughter who is at the bedside. He was recently hospitalized at outside hospital for diagnosis of pneumonia. He also has a history of significant ischemic cardiomyopathy with CHF status post BiV AICD. He also has a history of CKD. Over the last several weeks he has been developing worsening abdominal distention. At outside hospital he was noted to have a creatinine of 6.28. He has been seen by nephrology and his creatinine is grossly improving. His urine sodium was determined to be 20 and he has been getting gentle IV fluids. Ultrasound had shown intra-abdominal ascites. Chest x-ray did not show any fluid in his lungs. He says that his last echo it showed that his ejection fraction had increased from 10% to 35%. He does not take diuretic therapy at home. He has no history of alcoholism. He does have evidence of 50-year history of type 1 diabetes. He has no history of chronic viral hepatitis. He has no family members with chronic hepatitis. He is not have any tattoos and has not received any blood transfusions. He recently had 2 significant falls in which he bruised his left arm and caused him to be very swollen along with sustaining a abrasion of his right shoulder, forehead and nose. [facility] Medical History (Updated 09/22/21 @ 16:[address] Celeste Smith DO) Abdominal ascites Acute insomnia Atherosclerotic heart disease of [place] coronary artery without angina pectoris Benign prostatic hyperplasia without lower urinary tract symptoms Cardiomyopathy, unspecified Chronic kidney disease, stage 3 unspecified Cirrhosis Coronary artery disease Depression Diabetes Essential (primary) hypertension Former smoker GERD (gastroesophageal reflux disease) Heart failure, unspecified Hiatal hernia Hypertension ICD (implantable cardioverter-defibrillator) in place Insomnia Irregular heart beat Myocardial infarct Pressure ulcer, buttock Stroke/cerebrovascular accident Transient cerebral ischemic attack, unspecified Type 2 diabetes mellitus Unspecified atrial fibrillation Home Medications carvedilol 12.5 mg tablet 12.5 mg PO BID HEART 07/02/21 [History Last Taken 09/21/21 07:00] glipizide 5 mg tablet 5 mg PO BID DIABETES 07/02/21 [History Last Taken 09/21/21 07:00] omeprazole 20 mg capsule,delayed release 20 mg PO DAILY GERD 07/02/21 [History Last Taken Unknown] tamsulosin 0.4 mg capsule (Flomax) 0.4 mg PO BID URINATION 07/02/21 [History Last Taken 09/20/21 21:00] atorvastatin 40 mg tablet 40 tab PO QHS CHOLESTEROL 09/21/21 [History Last Taken 09/20/21 21:00] bumetanide 1 mg tablet 1 tab PO BID WATER PILL 09/21/21 [History Last Taken 09/21/21 07:00] Allergy/AdvReac Type Severity Reaction Status Date / Time No Known Allergies Allergy Verified 07/02/21 16:31 Family History (Updated 07/02/21 @ 16:38 by Thelma Reyes) Mother Bladder cancer Surgical History (Updated 09/22/21 @ 16:[address] Celeste Smith DO) History of hip surgery Hx of CABG Social History (Updated 07/02/21 @ 16:39 by Thelma Reyes) Smoking Status: Former smoker alcohol intake: current alcohol intake frequency: 0-2 drinks per day ROS Constitutional Constitutional: Reports weakness; Denies chills or fever(s) Eyes Eyes: Denies loss of vision ENT HEENT: Denies nasal congestion Cardiovascular Cardiovascular: Reports edema and other Details: Defibrillator, CABG ; Denies chest pain, dyspnea on exertion, palpitations or syncope Respiratory/Chest Respiratory/Chest: Denies dyspnea on exertion or hemoptysis Gastrointestinal Gastrointestinal: Reports diarrhea; Denies abdominal pain, anorexia, hematemesis, hematochezia or nausea Genitourinary Genitourinary: Reports other Details: No change in urinary volume, denied hesitancy, history of BPH ; Denies change in urinary stream, difficulty urinating or urinary incontinence Musculoskeletal Musculoskeletal: Reports other Details: Fell and tripped at PCPs office yesterday. History of falling 2 weeks ago with hospitalization at [place] Integumentary Integumentary: Reports lesions and other Details: Left upper arm swelling with hematoma on the dorsum of hand, stitches in left thumb, skin abrasions Neurologic Neurologic: Reports weakness Psychiatric Psychiatric: Denies anxiety or confusion Endocrine Endocrinology: Denies cold intolerance or fatigue Hematologic/Lymphatic Hematologic/Lymphatic: Reports easy bruising Physical Exam Narrative Const alert, oriented x3 and no apparent distress General Appearance: cooperative HEENT normocephalic and moist oral mucous membranes Eyes PERRL, EOMs intact bilaterally and conjunctivae normal Neck supple and no JVD Resp normal respiratory effort, no retractions and no use of accessory muscles Auscultation: diminished lung sounds; Negative for crackles, rales, rhonchi or wheezes Cardio regular rate, regular rhythm, S1 normal heart sound, S2 normal heart sound and no murmurs GI soft to palpation, non-tender, distended consistent with ascites Extremity no clubbing, cyanosis or edema Skin Skin Narrative: Multiple lacerations and abrasions over his face and right upper extremity.? He has significant bruising and swelling over his left upper extremity from a fall previously.? He says it is painful but sensation is intact. Neuro no focal motor deficits and no sensory deficits noted Psych affect normal Appearance: appropriate Lab / Micro Data Result Diagrams: 09/23/21 04:18 09/23/21 04:18 Labs: Laboratory Results - last 24 hr 09/22/21 16:53: POC Glucose 212 H 09/22/21 18:47: Ur Random Sodium 20 09/22/21 18:47: Urine Creatinine 78.70 09/22/21 21:23: POC Glucose 139 H 09/23/21 04:18: WBC 7.0, RBC 2.87 L, Hgb 9.2 L, Hct 28.4 L, MCV 99.0 H, MCH 32.1 H, MCHC 32.4, RDW Std Deviation 51.3 H, RDW Coeff of Jewels 14.1, Plt Count 122 L, MPV 10.4, Immature Gran % (Auto) 0.300, Neut % (Auto) 64.3, Lymph % (Auto) 19.2, [place] % (Auto) 13.5 H, Eos % (Auto) 2.6, Baso % (Auto) 0.1, Absolute Neuts (auto) 4.5, Absolute Lymphs (auto) 1.34, Nucleated RBC % 0 09/23/21 04:18: Sodium 137, Potassium 4.1, Chloride 107, Carbon Dioxide 18.0 L, Anion Gap 12, BUN 85 H, Creatinine 5.63 H, Estim Creat Clear Calc 9.90, Est GFR (MDRD) Af Amer 12 L, Est GFR (MDRD) Non-Af 10 L, BUN/Creatinine Ratio 15.1, Glucose 115 H, Calcium 7.6 L 09/23/21 06:18: POC Glucose 78 09/23/21 08:07: Total Bilirubin 0.70, Direct Bilirubin 0.33 H, AST 33, ALT 31, Alkaline Phosphatase 317 H, Total Protein 4.8 L, Albumin 1.8 L, Globulin 3.0 09/23/21 11:32: POC Glucose 135 H Charges/Coding Visit Charges Inpatient E&M: 46609 Init Hosp L3
[2021-09-23 17:31] LABS: Bedside Glucose 154 mg/dL (74-106)
[2021-09-23] MEDS: Octreotide 0.1 MG/ML ML SC ×2 (18:01→23:16)
[2021-09-23] MEDS: Midodrine HCl 5 MG Tablet 10 MG PO (18:02)
[2021-09-23] MEDS: Albumin Human 25% (100 mL) 25 GM/100 ML BAG IV (19:02)
[2021-09-23 19:08] VITALS: BP 104/64; PULSE 68; RESP 18; TEMP 36.7; O2SAT 95
[2021-09-23 20:27] VITALS: BP 112/70; PULSE 80; RESP 20; TEMP 36.7; O2SAT 98
[2021-09-23] MEDS: Morphine 2 MG/ML Syringe IV (20:30)
[2021-09-23] MEDS: 0.9% Saline Lock 10 ML Syringe IV (20:32)
[2021-09-23] MEDS: Atorvastatin Calcium 40 MG Tablet PO (20:34)
[2021-09-23 23:31] LABS: Bedside Glucose 146 mg/dL (74-106)
[2021-09-24] VITALS (9 sets, daily range): BP systolic 100–138; BP diastolic 45–79; PULSE 69–81; RESP 16–20; TEMP 36.4–36.8; O2SAT 96–100
--- NOTE | 2021-09-24 | FLU_PTH ---
PATIENT: ELENA PAZ LOC: MS3 U#:[id number] AGE/SX: 85/M ROOM: ID312 RE09/21/[address]: Dr. Shelia Gilliam MD : 1935 BED: 1 DIS: 10/06/2021 SPEC #: [id number] RECD: 09/24/21 14:05 STATUS: DEV WILSON #: [id number] [place]: 09/24/21 00:[address]: Chon Hernandez DEPT: CYTOLOGY RECD BY: Jai Wheat ENTERED: 09/25/21 08:14 SP TYPE: Fluid OTHR DR: DO Dr. Sae Menendez MD Dr. Scott Brown, MD Tissues: PARACENTESIS FLUID Procedures: Special Stain Group II Surgery Specimen Level IV Cytospin Fluid HEADER OPERATION: Paracentesis PRE-OP DIAGNOSIS: Ascites TISSUE SUBMITTED: Paracentesis fluid for cytology DIAGNOSIS CYTOLOGY Paracentesis fluid for cytology (cytospin and cell block): Negative for malignant cells. See comment. AM:trevon 09/28/2021 COMMENT The specimen contains reactive mesothelial cells. Multinucleated histiocytes and polymorphous lymphocytes. Immunohistochemistry ([id number]) supports the above diagnosis. This case was discussed with 09/29/[address] Park. Case has been reviewed in consultation with Dr. Tena who concurs with the above diagnosis. IDC:SJ CYTOLOGY STUDY Slides are reviewed. CYTOLOGY GROSS Received is 80 ml of yellow cloudy fluid labeled with the patient's name and and designated per the requisition as paracentesis. Submitted for cytology preparation including cell block. / trevon 09/25/2021 TC:5 CPT: 69640, 97731
--- NOTE | 2021-09-24 | IMM_PTH ---
PATIENT: ELENA PAZ LOC: MS3 U#:[id number] AGE/SX: 85/M ROOM: AZ312 RE09/21/[address]: Dr. Shelia Gilliam MD : 1935 BED: 1 DIS: 10/06/2021 SPEC #: [id number] RECD: 09/28/21 11:36 STATUS: DEV REQ #: [id number] [place]: 09/24/21 00:[address]: Chon Hernandez DEPT: IMMUNOHISTOCHEMISTRY RECD BY: Lucia Koroma ENTERED: 09/28/21 11:39 SP TYPE: IMMUNO OTHR DR: DO Dr. Deovn Menendez MD Dr. Paul Nielsen, MD Dr. Scott Brown, MD Tissues: PARACENTESIS FLUID Procedures: Dov Ret (add) CD20 (add) CD3 (add) CD45 (add) CD5 (add) CD79A (add) CK20 (add) CK5-6 (add) CK7 (add) CK8 (add) KI-67 (add) MACRO (add) P53 (add) LA (add) Pankeratin (add) P40 (add) ER (initial) PHYSICIAN & [place] [id number] SPECIMEN INFORMATION: Tissue Source: Paracentesis fluid Clinical Info: Ascites Specimen Number: [id number] CPT code: 12534, 77646 x16 METHODOLOGY: Deparaffinized sections of prefer/formalin-fixed tissue or PAP/DQ stained slides are incubated with monoclonal/polyclonal antibodies/oligonucleotide probes. Localization is made via biotin free immunoperoxidase method. Appropriate controls are performed and reacted as expected. Results on target cell population are indicated in the following table: RESULTS: ANTIBODY / CLONE RESULT ER (6F11) negative LA (1E2) negative AE1-3 (AE1/AE3/PCK26) negative CK7 (OV-TL12/30) negative CK8 (29zbptG41) negative CK20 (KS20.8) negative Macro (HAM-56) positive CALRET (polyclonal) negative CK5-6 (D5 & 1684) negative P40 (BC28) negative P53 (DO-7) negative Ki-67 (30-9) negative CD45 (RP2/18) positive CD3 (PS1) positive CD5 (SP10) positive CD20 (L26) negative CD79a (11E3) negative These tests were developed and their performance characteristics determined by [facility]. They may not have been cleared or approved by the U.S. Food and Drug Administration. The FDA has determined that such clearance or approval is not necessary. The above immunohistochemical/dualISH markers are ordered and reviewed by the Pathologist. INTERPRETATION: Paracentesis fluid (cell block): No evidence of malignancy. See comment. AM:trevon 09/29/2021 Comment: Polytypic lymphocytes, predominantly small T-lymphocytes are present.
[2021-09-24] MEDS: 0.9% Normal Saline 1,000 ML 100 ML IV (04:13)
[2021-09-24] MEDS: Insulin Lispro 100 UNIT/ML INSULN.PEN SC ×2 (06:25→23:24)
[2021-09-24 06:26] LABS: Absolute Neutrophil Count 3.4 X10^3/uL (2.0-7.7); Basophil# 0.01 X10^3/uL; Basophil% 0.2 % (0-1); Eosinophils% 3.5 % (0-5); Hematocrit 27.3 % (40-54); Hemoglobin 9.2 g/dL (13.0-16.5); Lymphocyte % 22.7 % (19-41); Mean Corp Hgb Conc 33.7 g/dL (32-36); Mean Corpuscular Hgb 32.7 pg (27.0-32.0); Mean Corpuscular Volume 97.2 fL (80-94); Mean Platelet Vol. 10.5 fl (6.2-12.0); NRBC Flagged by Analyzer 0 % (0-5); Neutrophil # 3.39 X10^3/uL (2.7-7.7); Neutrophil % 59.3 % (47-70); Platelet Count 114 K/mm3 (150-450); RBC Distribution Width CV 14.3 % (11.6-14.6); RBC Distribution Width SD 50.9 fl (35.1-43.9); Red Blood Count 2.81 M/mm3 (4.6-6.2); White Blood Count 5.7 K/mm3 (4.4-11.0)
[2021-09-24] MEDS: Octreotide 0.1 MG/ML ML SC ×3 (06:34→23:24)
[2021-09-24 06:46] LABS: Bedside Glucose 199 mg/dL (74-106)
[2021-09-24 06:56] LABS: ALB/GLOB Ratio 0.6 RATIO (0.9-2.4); AST(SGOT) 30 U/L (15-37); Alanine Aminotransfer ALT/SGPT 30 U/L (16-61); Alkaline Phosphatase 277 U/L (45-117); Anion Gap 10 (5-15); BUN 85 mg/dL (7-18); BUN/Creat Ratio 14.8 RATIO (10-20); Calcium,Total 7.8 mg/dL (8.5-10.1); Chloride 108 mmol/L (98-107); Creatinine, Serum 5.76 mg/dL (0.70-1.30); EST Glomerular Filtration Rate 10 mL/min (>60); Est Glom Filt Rate - Afr Amer 12 mL/min (>60); Estimated Creatinine Clearance 9.68 ml/min; Globulin 3.2 g/dL (2.2-4.2); Glucose 130 mg/dL (74-106); Phosphorus 6.8 mg/dL (2.5-4.9); Potassium 4.2 mmol/L (3.5-5.1); Protein, Total 5.2 g/dL (6.4-8.2); Sodium Level 136 mmol/L (136-145)
--- NOTE | 2021-09-24 07:36 | US_ITS ---
PROCEDURE: Ultrasound guided paracentesis. INDICATION: Male, 85 years old. Ascites PHYSICIAN: Cody Flores DO INFORMED CONSENT: The risks, benefits, and alternatives to the procedure were explained to the patient. The specific risks of bleeding, infection, and damage to bowel were detailed and accepted. Witnessed informed consent was obtained. TECHNIQUES: The abdomen was ultrasonographically surveyed. An appropriate pocket of fluid was identified at the right lower quadrant. The skin was cleaned and prepped in the usual sterile fashion. Using ultrasound guidance, the peritoneal cavity was accessed with a 5-Yoruba paracentesis needle/catheter system. The trocar was removed. Approximately 100 cc of clear straw-colored ascites fluid was aspirated and sent for labs. A total of 5750 ml of clear straw-colored ascites fluid was removed from the peritoneal cavity. The catheter was removed and a sterile dressing was applied. The procedure was well tolerated. The patient was returned to the floor in stable condition. US/Paracentesis with US IMPRESSION: Ultrasound guided diagnostic and therapeutic paracentesis. Electronically Signed: Cody Flores, at 15:00 EDT ,
--- NOTE | 2021-09-24 08:25 | PCM.PN.REN ---
Subjective Subjective denies nausea, vomiting. Difficulty with breathing with tense ascites. GI consulted. Ordered paracentesis. Urine output poor Objective Data Objective Data Vital Signs: Vital Signs Temp Pulse Resp BP Pulse Ox 97.9 F 69 20 H 106/56 L 97 09/24/21 08:10 09/24/21 08:10 09/24/21 08:10 09/24/21 08:10 09/24/21 08:10 Oxygen Delivery Method Room Air Weight: 87.997 kg Body Mass Index (BMI) 27.8 Intake & Output: Intake and Output for Last 24 Hours 09/22/21 09/23/21 09/24/21 23:59 23:59 23:59 Intake Total 1999 / 1999 2528.33 / 2528.33 888.33 / 888.33 Output Total 450 / 450 50 / 50 50 / 50 Balance 1550 / 1550 2478.33 / 2478.33 838.33 / 838.33 Lab / Micro Data Result Diagrams: 09/24/21 04:47 09/24/21 04:47 Labs: Laboratory Results - last 24 hr 09/23/21 08:07: Total Bilirubin 0.70, Direct Bilirubin 0.33 H, AST 33, ALT 31, Alkaline Phosphatase 317 H, Total Protein 4.8 L, Albumin 1.8 L, Globulin 3.0 09/23/21 11:32: POC Glucose 135 H 09/23/21 16:24: POC Glucose 154 H 09/23/21 16:55: Ammonia 22.0 09/23/21 23:14: POC Glucose 146 H 09/24/21 04:47: Sodium 136, Potassium 4.2, Chloride 108 H, Carbon Dioxide 18.0 L, Anion Gap 10, BUN 85 H, Creatinine 5.76 H, Estim Creat Clear Calc 9.68, Est GFR (MDRD) Af Amer 12 L, Est GFR (MDRD) Non-Af 10 L, BUN/Creatinine Ratio 14.8, Glucose 130 H, Calcium 7.8 L, Phosphorus 6.8 H, Total Bilirubin 0.70, AST 30, ALT 30, Alkaline Phosphatase 277 H, Total Protein 5.2 L, Albumin 2.0 L, Globulin 3.2, Albumin/Globulin Ratio 0.6 L 09/24/21 04:47: WBC 5.7, RBC 2.81 L, Hgb 9.2 L, Hct 27.3 L, MCV 97.2 H, MCH 32.7 H, MCHC 33.7, RDW Std Deviation 50.9 H, RDW Coeff of Jewels 14.3, Plt Count 114 L, MPV 10.5, Immature Gran % (Auto) 0.300, Neut % (Auto) 59.3, Lymph % (Auto) 22.7, [place] % (Auto) 14.0 H, Eos % (Auto) 3.5, Baso % (Auto) 0.2, Absolute Neuts (auto) 3.4, Absolute Lymphs (auto) 1.30, Nucleated RBC % 0 09/24/21 06:22: POC Glucose 199 H Radiography Diagnostic Testing: Radiology Impression Abdomen/Pelvis CT 09/23/21 16:29 IMPRESSION: Significant intra-abdominal ascites. Small left pleural effusion and moderate overlying airspace disease most likely representing atelectasis. Hyperdensity in the gallbladder most likely representing sludge or multiple indistinguishable small stones. Asymmetrically smaller right kidney compared to the left. No significant cortical thinning. Atherosclerosis abdominal aorta and branch vessels. Advanced degenerative changes lumbar spine with severe Central spinal canal stenosis L3-4 and L4-5 levels. Electronically Signed: Devon Parmar DO at 20:14 EDT , Physical Exam Narrative stable Const alert, oriented x3 and no apparent distress General Appearance: frail HEENT Head and Scalp: laceration Eyes EOMs intact bilaterally and no scleral icterus Neck no JVD Resp Auscultation: wheezes Cardio regular rate Cardio Narrative: Defibrillator GI non-tender GI Narrative: Distended abdomen, tense ascites Auscultation: normoactive bowel sounds Palpation: ascites Narrative: poor urine output in weller Bladder / Kidney Exam: catheter in place Back/Spine Back/Spine Narrative: Unable to assess patient lying down Extremity Extremity Narrative: anasarca General Extremity: edema Skin Skin Narrative: Ecchymosis hematoma dorsum of left hand with swelling left upper extremity, wound abrasions General Skin Exam: ecchymosis and erythema Wounds: wounds noted Neuro moves all extremities Sensorium / Orientation: awake and alert Psych cooperative Assessment & Plan Assessment/Plan (1) Acute renal failure: PLAN: Creatinine 5.75. Remains oliguric. Reviewed records from [place]. Change to iv lasix. Check renal US (2) Coronary artery disease: PLAN: Status post CABG and defibrillator. Obtain echo report. EF on most recent echo apparently has been at 35% according to the patient family but as low as 10% (3) Diabetes: PLAN: Avoid metformin (4) Essential (primary) hypertension: PLAN: BP stable (5) BPH (benign prostatic hyperplasia): PLAN: History of TURP (6) Cardiomyopathy: PLAN: Status post defibrillator (7) Ascites: PLAN: paracentesis (8) Cirrhosis: PLAN: GI consult appreciated
[2021-09-24] MEDS: Midodrine HCl 5 MG Tablet 10 MG PO ×3 (08:43→18:22)
[2021-09-24] MEDS: Pantoprazole Sodium 20 MG Tablet PO (08:44)
[2021-09-24] MEDS: Bumetanide 0.5 MG Tablet 1 MG PO (08:44)
[2021-09-24 09:09] LABS: HEPATITIS B SURFACE AG Negative (Negative); Hep C Antibodies 0.1 s/co ratio (0.0-0.9); Hepatitis A IgM Antibody Negative (Negative); Hepatitis B Core AB IgM Negative (Negative)
--- NOTE | 2021-09-24 09:56 | US_ITS ---
INDICATION: kusum -- to be done with para EXAMINATION: Ultrasound US Kidney(s) complete (eg, kidneys and bladder) TECHNIQUE: Hein scale and color doppler images were obtained of the kidneys. COMPARISON: CT abdomen and pelvis without contrast from 09/23/2020 FINDINGS: RIGHT KIDNEY: 10.2 x 5.0 x 3.8 cm. No echogenic calculi or hydronephrosis. Cortex and parenchyma are within normal limits. 2 simple cysts measuring up to 2.3 cm. No solid lesions. LEFT KIDNEY: Somewhat limited assessment as optimal views cannot be obtained given patient''s current clinical condition limiting ability to move and participate in exam. 9.2 x 4.2 x 5.1 cm. No echogenic calculi or hydronephrosis. Cortex and parenchyma are within normal limits. No cystic or solid lesions. URINARY BLADDER: Decompressed by indwelling weller catheter. US/Kidney and Bladder IMPRESSION: No acute findings. Electronically Signed: Cody Flores, at 14:57 EDT ,
--- NOTE | 2021-09-24 09:56 | CASEMGMT ---
Social Work SW met with pt and discussed discharge plan. SW spoke with pt regarding SNF placement. Pt is understanding that he will need rehabilitation prior to returning home but is adamant that he will return home. SW reviewed SNF list that was provided to pt yesterday. Pt stating that preferred provider is [facility]. SW explained insurance coverage and length of stay. Referral made to TCU and they can accept pt. Precert to be started today. Plan: TCU, pending precert GATITO Palacios
[2021-09-24] MEDS: Furosemide 100 MG/10 ML Vial 80 MG IV ×2 (10:13→18:23)
[2021-09-24] MEDS: Tamsulosin HCl 0.4 MG Capsule PO ×2 (10:15→23:24)
[2021-09-24] MEDS: Albumin Human 25% (100 mL) 25 GM/100 ML BAG IV (11:00)
[2021-09-24] MEDS: 0.9% Saline Lock 10 ML Syringe IV ×3 (11:01→18:27)
[2021-09-24 11:51] LABS: Bedside Glucose 161 mg/dL (74-106)
[2021-09-24] MEDS: Lidocaine 2% (20 ml mdv) 20 ML Vial INFILT (13:50)
--- NOTE | 2021-09-24 14:00 | PN.HOSP_ITS ---
Subjective Subjective Doing well today, continues to have left upper extremity swelling but he still has sensation. Abdomen is much more distended today plan for paracentesis in IR Objective Data Objective Data Vital Signs: Vital Signs Temp Pulse Resp BP Pulse Ox 97.6 F L 80 18 107/54 L 97 09/24/21 12:54 09/24/21 12:54 09/24/21 12:54 09/24/21 12:54 09/24/21 12:54 Oxygen Delivery Method Room Air Weight: 194 lb 0.003 oz Body Mass Index (BMI) 27.8 Intake & Output: Intake and Output for Last 24 Hours 09/23/21 09/24/21 09/25/21 03:59 03:59 03:59 Intake Total 1999 / 1999 2528.33 / 2528.33 1916.66 / 1916.66 Output Total 450 / 450 50 / 50 150 / 150 Balance 1550 / 1550 2478.33 / 2478.33 1766.66 / 1766.66 Lab / Micro Data Result Diagrams: 09/24/21 04:47 09/24/21 04:47 Labs: Laboratory Results - last 24 hr 09/23/21 08:07: Hepatitis A IgM Ab Negative, Hep Bs Antigen Negative, Hep B Core IgM Ab Negative, Hepatitis C Ab (EIA) 0.1, Hep C Ab Comment Comment 09/23/21 16:24: POC Glucose 154 H 09/23/21 16:55: Ammonia 22.0 09/23/21 23:14: POC Glucose 146 H 09/24/21 04:47: Sodium 136, Potassium 4.2, Chloride 108 H, Carbon Dioxide 18.0 L , Anion Gap 10, BUN 85 H, Creatinine 5.76 H, Estim Creat Clear Calc 9.68, Est GFR (MDRD) Af Amer 12 L, Est GFR (MDRD) Non-Af 10 L, BUN/Creatinine Ratio 14.8, Glucose 130 H, Calcium 7.8 L, Phosphorus 6.8 H, Total Bilirubin 0.70, AST 30, ALT 30, Alkaline Phosphatase 277 H, Total Protein 5.2 L, Albumin 2.0 L, Globulin 3.2, Albumin/Globulin Ratio 0.6 L 09/24/21 04:47: WBC 5.7, RBC 2.81 L, Hgb 9.2 L, Hct 27.3 L, MCV 97.2 H, MCH 32.7 H, MCHC 33.7, RDW Std Deviation 50.9 H, RDW Coeff of Jewels 14.3, Plt Count 114 L, MPV 10.5, Immature Gran % (Auto) 0.300, Neut % (Auto) 59.3, Lymph % (Auto) 22.7, [place] % (Auto) 14.0 H, Eos % (Auto) 3.5, Baso % (Auto) 0.2, Absolute Neuts (auto) 3.4, Absolute Lymphs (auto) 1.30, Nucleated RBC % 0 09/24/21 06:22: POC Glucose 199 H 09/24/21 11:43: POC Glucose 161 H Radiography Diagnostic Testing: Radiology Impression Abdomen/Pelvis CT 09/23/21 16:29 IMPRESSION: Significant intra-abdominal ascites. Small left pleural effusion and moderate overlying airspace disease most likely representing atelectasis. Hyperdensity in the gallbladder most likely representing sludge or multiple indistinguishable small stones. Asymmetrically smaller right kidney compared to the left. No significant cortical thinning. Atherosclerosis abdominal aorta and branch vessels. Advanced degenerative changes lumbar spine with severe Central spinal canal stenosis L3-4 and L4-5 levels. Electronically Signed: Devon Parmar DO at 20:14 EDT , Physical Exam Narrative Const alert, oriented x3 and no apparent distress General Appearance: cooperative HEENT normocephalic and moist oral mucous membranes Eyes PERRL, EOMs intact bilaterally and conjunctivae normal Neck supple and no JVD Resp normal respiratory effort, no retractions and no use of accessory muscles Auscultation: diminished lung sounds; Negative for crackles, rales, rhonchi or wheezes Cardio regular rate, regular rhythm, S1 normal heart sound, S2 normal heart sound and no murmurs GI soft to palpation, non-tender, distended consistent with ascites Extremity no clubbing, cyanosis or edema Skin Skin Narrative: Multiple lacerations and abrasions over his face and right upper extremity.? He has significant bruising and swelling over his left upper extremity from a fall previously.? He says it is painful but sensation is intact. Neuro no focal motor deficits and no sensory deficits noted Psych affect normal Appearance: appropriate Assessment & Plan Assessment/Plan (1) Acute renal failure: (2) Coronary artery disease: (3) Diabetes: (4) Essential (primary) hypertension: (5) Depression: PLAN: Plan 1. Acute renal failure/weakness and debility ? Unsure as to the etiology, he is on Bumex at home as well as Coreg ? We will continue with gentle IV hydration and nephrology was consulted for evaluation and assistance in management ? We will consult wound care to help with the use will multiple superficial wounds. ? His left upper extremity is very swollen but does not appear to be infected at this time will allow for gradual resolution of the swelling if it does get any worse and he loses sensation will need emergency transfer to tertiary care center that has hand surgery. At this time he still has sensation though mobility is limited secondary to the swelling ? PT/OT for evaluation and placement in a SNF 2. 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 Continue with his PPI ? Appreciate gastroenterology's assistance ? Lab values are pending, plan for paracentesis today we will obtain a SAAG for further clarification ? AST and ALT are normal, alk phos is elevated 3. CAD status post CABG/HTN/chronic systolic CHF ? Blood pressures are stable, will continue with his home Coreg ? Nephrology is ordered IV Lasix ? Continue with Lipitor 4. DM2 ? Hold his home medications ? Placed on a sliding scale insulin ? Accu-Cheks AC at bedtime 5. GERD ? Stable ? Continue with PPI 6. BPH ? Stable ? Continue with Flomax DVT: SCD's Charges/Coding Visit Charges Inpatient E&M: 62436 Subs Hosp L2
[2021-09-24 15:39] LABS: Protein, Body Fluid 1.1 g/dL (Not Establ.)
[2021-09-24 16:35] LABS: Bedside Glucose 170 mg/dL (74-106)
--- NOTE | 2021-09-24 18:02 | PN_ITS ---
Subjective Subjective Patient underwent large-volume paracentesis. Objective Data Objective Data Vital Signs: Vital Signs Temp Pulse Resp BP Pulse Ox 97.7 F L 77 18 107/45 L 97 09/24/21 14:55 09/24/21 14:55 09/24/21 14:55 09/24/21 14:55 09/24/21 14:55 Oxygen Delivery Method [3] Room Air Oxygen Delivery Method [2] Room Air Oxygen Delivery Method [1 ( Room Air Initial Baseline)] Oxygen Delivery Method Room Air Weight: 194 lb 0.003 oz Body Mass Index (BMI) 27.8 Intake & Output: Intake and Output for Last 24 Hours 09/22/21 09/23/21 09/24/21 23:59 23:59 23:59 Intake Total 1999 / 1999 2528.33 / 2528.33 / Output Total 450 / 450 50 / 50 5850 / 5850 Balance 1550 / 1550 2478.33 / 2478.33 -3833.34 / -3833.34 Lab / Micro Data Result Diagrams: 09/24/21 04:47 09/24/21 04:47 Labs: Laboratory Results - last 24 hr 09/23/21 08:07: Hepatitis A IgM Ab Negative, Hep Bs Antigen Negative, Hep B Core IgM Ab Negative, Hepatitis C Ab (EIA) 0.1, Hep C Ab Comment Comment 09/23/21 23:14: POC Glucose 146 H 09/24/21 04:47: Sodium 136, Potassium 4.2, Chloride 108 H, Carbon Dioxide 18.0 L , Anion Gap 10, BUN 85 H, Creatinine 5.76 H, Estim Creat Clear Calc 9.68, Est GFR (MDRD) Af Amer 12 L, Est GFR (MDRD) Non-Af 10 L, BUN/Creatinine Ratio 14.8, Glucose 130 H, Calcium 7.8 L, Phosphorus 6.8 H, Total Bilirubin 0.70, AST 30, ALT 30, Alkaline Phosphatase 277 H, Total Protein 5.2 L, Albumin 2.0 L, Globulin 3.2, Albumin/Globulin Ratio 0.6 L 09/24/21 04:47: WBC 5.7, RBC 2.81 L, Hgb 9.2 L, Hct 27.3 L, MCV 97.2 H, MCH 32.7 H, MCHC 33.7, RDW Std Deviation 50.9 H, RDW Coeff of Jewels 14.3, Plt Count 114 L, MPV 10.5, Immature Gran % (Auto) 0.300, Neut % (Auto) 59.3, Lymph % (Auto) 22.7, Will % (Auto) 14.0 H, Eos % (Auto) 3.5, Baso % (Auto) 0.2, Absolute Neuts (auto) 3.4, Absolute Lymphs (auto) 1.30, Nucleated RBC % 0 09/24/21 06:22: POC Glucose 199 H 09/24/21 11:43: POC Glucose 161 H 09/24/21 13:50: Fluid Total Protein 1.1 09/24/21 16:31: POC Glucose 170 H Radiography Diagnostic Testing: Radiology Impression Abdomen/Pelvis CT 09/23/21 16:29 IMPRESSION: Significant intra-abdominal ascites. Small left pleural effusion and moderate overlying airspace disease most likely representing atelectasis. Hyperdensity in the gallbladder most likely representing sludge or multiple indistinguishable small stones. Asymmetrically smaller right kidney compared to the left. No significant cortical thinning. Atherosclerosis abdominal aorta and branch vessels. Advanced degenerative changes lumbar spine with severe Central spinal canal stenosis L3-4 and L4-5 levels. Electronically Signed: Devon Parmar, at 20:14 EDT , Paracentesis Ultrasound 09/24/21 07:36 IMPRESSION: Ultrasound guided diagnostic and therapeutic paracentesis. Electronically Signed: Cody Flores, at 15:00 EDT , Renal Ultrasound 09/24/21 09:56 IMPRESSION: No acute findings. Electronically Signed: Cody Flores, at 14:57 EDT , Physical Exam Narrative Const alert, oriented x3 and no apparent distress General Appearance: cooperative HEENT normocephalic and moist oral mucous membranes Eyes PERRL, EOMs intact bilaterally and conjunctivae normal Neck supple and no JVD Resp normal respiratory effort, no retractions and no use of accessory muscles Auscultation: diminished lung sounds; Negative for crackles, rales, rhonchi or wheezes Cardio regular rate, regular rhythm, S1 normal heart sound, S2 normal heart sound and no murmurs GI soft to palpation, non-tender, distended consistent with ascites Extremity no clubbing, cyanosis or edema Skin Skin Narrative: Multiple lacerations and abrasions over his face and right upper extremity.? He has significant bruising and swelling over his left upper extremity from a fall previously.? He says it is painful but sensation is intact. Neuro no focal motor deficits and no sensory deficits noted Psych affect normal Appearance: appropriate Assessment & Plan Assessment/Plan (1) Ascites: PLAN: His SAAG gradient was calculated to be 0.9. A low gradient (SAAG < 1.1 g/dL) indicates?nonportal hypertension and suggests a peritoneal cause of ascites. Such conditions may include the following: Primary peritoneal mesothelioma. Secondary peritoneal carcinomatosis.low SAAG ascites (<1.1 g/dL) is?usually caused by peritoneal malignancies, chronic peritoneal infection (i.e., mycobacterium tuberculosis), and nephrotic syndrome. Cancers that spread to the omentum and result in ascites are typically of ovarian, gastric, or pancreatic origin. I will keep him on midodrine therapy as it has been associated with decreasing ascites production. I will check a CA 19-9, alpha- fetoprotein, CEA. The next time he needs a paracentesis we will need to send it for cytology. We will also get a QuantiFERON gold, LDH and protein electrophoresis. (2) Cirrhosis: PLAN: He has a small nodular liver that is consistent with cirrhosis on imaging. Suspected concerns secondary to [place] or cirrhosis. Continue lactulose p.o. every 6 hours. Charges/Coding Visit Charges Inpatient E&M: 33115 Subs Hosp L3
[2021-09-24] MEDS: Atorvastatin Calcium 40 MG Tablet PO (23:23)
[2021-09-24 23:56] LABS: Bedside Glucose 179 mg/dL (74-106)
[2021-09-25 03:30] VITALS: BP 101/60; PULSE 60; RESP 18; TEMP 36.9; O2SAT 96
[2021-09-25 03:55] LABS: Absolute Lymphocyte Count 1.27 X10^3/uL (0.83-4.51); Absolute Neutrophil Count 4.5 X10^3/uL (2.0-7.7); Basophil# 0.01 X10^3/uL; Basophil% 0.1 % (0-1); Eosinophil# 0.34 X10^3/uL; Eosinophils% 4.8 % (0-5); Hematocrit 27.6 % (40-54); Lymphocyte # 1.27 X10^3/ul (0.83-4.51); Lymphocyte % 17.8 % (19-41); Mean Corp Hgb Conc 32.6 g/dL (32-36); Mean Corpuscular Hgb 32.6 pg (27.0-32.0); Monocyte# 1.01 X10^3/uL; Monocyte% 14.2 % (0-10); NRBC Flagged by Analyzer 0 % (0-5); Neutrophil # 4.48 X10^3/uL (2.7-7.7); Neutrophil % 62.8 % (47-70); Platelet Count 140 K/mm3 (150-450); RBC Distribution Width CV 14.3 % (11.6-14.6); Red Blood Count 2.76 M/mm3 (4.6-6.2); White Blood Count 7.1 K/mm3 (4.4-11.0)
[2021-09-25 04:35] LABS: Albumin, Serum 2.1 g/dL (3.2-5.0); BUN 81 mg/dL (7-18); BUN/Creat Ratio 14.4 RATIO (10-20); Calcium,Total 7.6 mg/dL (8.5-10.1); Chloride 107 mmol/L (98-107); Creatinine, Serum 5.63 mg/dL (0.70-1.30); EST Glomerular Filtration Rate 10 mL/min (>60); Est Glom Filt Rate - Afr Amer 12 mL/min (>60); Glucose 108 mg/dL (74-106); Sodium Level 137 mmol/L (136-145)
[2021-09-25 06:08] LABS: HEPATITIS B SURFACE AG Negative (Negative); Hep C Antibodies <0.1 s/co ratio (0.0-0.9); Hepatitis A IgM Antibody Negative (Negative); Hepatitis B Core AB IgM Negative (Negative)
[2021-09-25] MEDS: Octreotide 0.1 MG/ML ML SC ×3 (06:48→22:05)
[2021-09-25 06:56] LABS: Bedside Glucose 110 mg/dL (74-106)
[2021-09-25] MEDS: Midodrine HCl 5 MG Tablet 10 MG PO ×3 (09:01→16:49)
[2021-09-25 09:04] VITALS: BP 101/53; PULSE 85; RESP 18; TEMP 36.5; O2SAT 97
[2021-09-25] MEDS: Furosemide 100 MG/10 ML Vial 80 MG IV ×2 (10:02→18:03)
[2021-09-25] MEDS: Pantoprazole Sodium 20 MG Tablet PO (10:04)
[2021-09-25] MEDS: Tamsulosin HCl 0.4 MG Capsule PO ×2 (10:04→22:05)
[2021-09-25] MEDS: 0.9% Saline Lock 10 ML Syringe IV ×3 (10:04→18:02)
[2021-09-25] MEDS: Albumin Human 25% (100 mL) 25 GM/100 ML BAG IV (10:14)
--- NOTE | 2021-09-25 10:18 | CASEMGMT ---
Social Work TCU is able to accept pt and precert has been obtained. Precert is good through Thursday 09/28 at 0800. Per physician, pt is not ready for discharge today. SW met with pt and informed that TCU is able to accept and insurance has approved. Pt agreeable to discharge plan. With pt permission, phone call to pt and updated on discharge plan. Pt also feels this is a good plan for pt. Plan: TCU, when medically ready. If pt remains hospitalized at 0800 on Tuesday, new precert will be needed. GATITO Palacios
[2021-09-25 11:46] LABS: Bedside Glucose 175 mg/dL (74-106)
[2021-09-25 12:08] LABS: Anti-Centromere B Ab <0.2 AI (0.0-0.9); Anti-Chromatin <0.2 AI (0.0-0.9); Anti-Jo <0.2 AI (0.0-0.9); Anti-Scleroderma-70 AB <0.2 AI (0.0-0.9); RNP Ab 0.2 AI (0.0-0.9); SJOGREN'S Anti-SS-A test < 0.2 AI (0.0-0.9); SJOGREN'S Anti-SS-B test < 0.2 AI (0.0-0.9); Smith Ab <0.2 AI (0.0-0.9)
[2021-09-25 12:41] VITALS: BP 98/60; PULSE 74; RESP 20; TEMP 36.5; O2SAT 98
[2021-09-25] MEDS: Calcium Acetate 667 MG Capsule PO ×2 (12:41→16:49)
[2021-09-25 13:07] LABS: Anti-dsDNA Ab <1 IU/mL (0-9)
[2021-09-25 13:21] LABS: Anti-Mitochondrial AB <20.0 Units (0.0-20.0)
--- NOTE | 2021-09-25 13:57 | CASEMGMT ---
Notified Claudia at [facility] that pt will dc from acute to [facility].
[2021-09-25 16:46] VITALS: BP 121/66; PULSE 69; RESP 18; TEMP 36.8; O2SAT 97
--- NOTE | 2021-09-25 16:49 | PCM.PN.HOSP ---
Subjective Subjective Feels better after his paracentesis of over 5 L. Renal function is neither improving nor worsening Objective Data Objective Data Vital Signs: Vital Signs Temp Pulse Resp BP Pulse Ox 98.2 F 69 18 121/66 H 97 09/25/21 16:46 09/25/21 16:46 09/25/21 16:46 09/25/21 16:46 09/25/21 16:46 Oxygen Delivery Method [3] Room Air Oxygen Delivery Method [2] Room Air Oxygen Delivery Method [1 ( Room Air Initial Baseline)] Oxygen Delivery Method Room Air Weight: 194 lb 0.003 oz Body Mass Index (BMI) 27.8 Intake & Output: Intake and Output for Last 24 Hours 09/24/21 09/25/21 09/26/21 03:59 03:59 03:59 Intake Total 2528.33 / 2528.33 2216.66 / 2216.66 650 / 650 Output Total 50 / 50 5975 / 5975 725 / 725 Balance 2478.33 / 2478.33 -3758.34 / -3758.34 -75 / -75 Lab / Micro Data Result Diagrams: 09/25/21 03:05 09/26/21 05:34 Labs: Laboratory Results - last 24 hr 09/23/21 16:55: Anti-Mitochondrial Ab <20.0 09/23/21 16:55: LAVELL-1 Antibody <0.2, SS-A/Ro IgG Antibody < 0.2, SS-B/La IgG Antibody < 0.2, Sm (Jeffrey) Antibody <0.2, [employer] Antibody 0.2, Scl-70 Scleroderma Ab <0.2, Double Strand DNA Ab <1, Centromere B Antibody <0.2 09/24/21 23:07: POC Glucose 179 H 09/25/21 03:05: Sodium 137, Potassium 4.0, Chloride 107, Carbon Dioxide 18.0 L, BUN 81 H, Creatinine 5.63 H, Estim Creat Clear Calc 9.90, Est GFR (MDRD) Af Amer 12 L, Est GFR (MDRD) Non-Af 10 L, BUN/Creatinine Ratio 14.4, Glucose 108 H, Calcium 7.6 L, Phosphorus 7.0 H, Albumin 2.1 L 09/25/21 03:05: WBC 7.1, RBC 2.76 L, Hgb 9.0 L, Hct 27.6 L, MCV 100.0 H, MCH 32.6 H, MCHC 32.6, RDW Std Deviation 52.0 H, RDW Coeff of Jewels 14.3, Plt Count 140 L, MPV 10.0, Immature Gran % (Auto) 0.300, Neut % (Auto) 62.8, Lymph % (Auto) 17.8 L, [place] % (Auto) 14.2 H, Eos % (Auto) 4.8, Baso % (Auto) 0.1, Absolute Neuts (auto) 4.5, Absolute Lymphs (auto) 1.27, Nucleated RBC % 0 09/25/21 06:46: POC Glucose 110 H 09/25/21 11:40: POC Glucose 175 H Physical Exam Narrative Const alert, oriented x3 and no apparent distress General Appearance: cooperative HEENT normocephalic and moist oral mucous membranes Eyes PERRL, EOMs intact bilaterally and conjunctivae normal Neck supple and no JVD Resp normal respiratory effort, no retractions and no use of accessory muscles Auscultation: diminished lung sounds; Negative for crackles, rales, rhonchi or wheezes Cardio regular rate, regular rhythm, S1 normal heart sound, S2 normal heart sound and no murmurs GI soft to palpation, non-tender, distended consistent with ascites Extremity no clubbing, cyanosis or edema Skin Skin Narrative: Multiple lacerations and abrasions over his face and right upper extremity.? He has significant bruising and swelling over his left upper extremity from a fall previously.? He says it is painful but sensation is intact. Neuro no focal motor deficits and no sensory deficits noted Psych affect normal Appearance: appropriate Assessment & Plan Assessment/Plan (1) Acute renal failure: (2) Coronary artery disease: (3) Diabetes: (4) Essential (primary) hypertension: (5) Depression: PLAN: Plan 1. Acute renal failure/weakness and debility ? Unsure as to the etiology, he is on Bumex at home as well as Coreg ? We will continue with gentle IV hydration and nephrology was consulted for evaluation and assistance in management ? We will consult wound care to help with the use will multiple superficial wounds. ? His left upper extremity is very swollen but does not appear to be infected at this time will allow for gradual resolution of the swelling if it does get any worse and he loses sensation will need emergency transfer to tertiary care center that has hand surgery. At this time he still has sensation though mobility is limited secondary to the swelling ? PT/OT for evaluation and placement in a SNF 2. 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 Continue with his PPI ? Appreciate gastroenterology's assistance ? Paracentesis withdrew about 5 L, continue with albumin 3 times daily. SAAG indicates that this is likely not due to portal hypertension ? Continue with midodrine ? AST and ALT are normal, alk phos is elevated 3. CAD status post CABG/HTN/chronic systolic CHF ? Blood pressures are stable, will continue with his home Coreg ? Nephrology is ordered IV Lasix ? Continue with Lipitor 4. DM2 ? Hold his home medications ? Placed on a sliding scale insulin ? Accu-Cheks AC at bedtime 5. GERD ? Stable ? Continue with PPI 6. BPH ? Stable ? Continue with Flomax DVT: SCD's Charges/Coding Visit Charges Inpatient E&M: 00930 Subs Hosp L2
[2021-09-25 17:05] LABS: Bedside Glucose 161 mg/dL (74-106)
[2021-09-25 17:55] VITALS: BP 100/49; PULSE 68; RESP 18; O2SAT 97
[2021-09-25 19:13] LABS: AFP, Tumor Marker < 0.9 ng/mL (0.0-6.4); Carbohydrate AG 19-9 37 U/mL (0-35)
--- NOTE | 2021-09-25 19:27 | PN_ITS ---
Subjective Subjective Patient does not have any complaints at this time. He is tolerating a diet. Objective Data Objective Data Vital Signs: Vital Signs Temp Pulse Resp BP Pulse Ox 98.2 F 68 18 100/49 L 97 09/25/21 16:46 09/25/21 17:55 09/25/21 17:55 09/25/21 17:55 09/25/21 17:55 Oxygen Delivery Method [3] Room Air Oxygen Delivery Method [2] Room Air Oxygen Delivery Method [1 ( Room Air Initial Baseline)] Oxygen Delivery Method Room Air Weight: 194 lb 0.003 oz Body Mass Index (BMI) 27.8 Intake & Output: Intake and Output for Last 24 Hours 09/23/21 09/24/21 09/25/21 23:59 23:59 23:59 Intake Total 2528.33 / 2528.33 2216.66 / 2216.66 1000 / 1000 Output Total 50 / 50 5975 / 5975 1150 / 1150 Balance 2478.33 / 2478.33 -3758.34 / -3758.34 -150 / -150 Lab / Micro Data Result Diagrams: 09/25/21 03:05 09/25/21 03:05 Labs: Laboratory Results - last 24 hr 09/23/21 16:55: Anti-Mitochondrial Ab <20.0 09/23/21 16:55: Tumor Marker AFP < 0.9, CA 19-9 Antigen 37 H 09/23/21 16:55: Hepatitis A IgM Ab Negative, Hep Bs Antigen Negative, Hep B Core IgM Ab Negative, Hepatitis C Ab (EIA) <0.1, Hep C Ab Comment Comment 09/23/21 16:55: LAVELL-1 Antibody <0.2, SS-A/Ro IgG Antibody < 0.2, SS-B/La IgG Antibody < 0.2, Sm (Jeffrey) Antibody <0.2, [employer]IVER Antibody 0.2, Scl-70 Scleroderma Ab <0.2, Double Strand DNA Ab <1, Centromere B Antibody <0.2 09/24/21 23:07: POC Glucose 179 H 09/25/21 03:05: Sodium 137, Potassium 4.0, Chloride 107, Carbon Dioxide 18.0 L, BUN 81 H, Creatinine 5.63 H, Estim Creat Clear Calc 9.90, Est GFR (MDRD) Af Amer 12 L, Est GFR (MDRD) Non-Af 10 L, BUN/Creatinine Ratio 14.4, Glucose 108 H, Calcium 7.6 L, Phosphorus 7.0 H, Albumin 2.1 L 09/25/21 03:05: WBC 7.1, RBC 2.76 L, Hgb 9.0 L, Hct 27.6 L, MCV 100.0 H, MCH 32. 6 H, MCHC 32.6, RDW Std Deviation 52.0 H, RDW Coeff of Jewels 14.3, Plt Count 140 L , MPV 10.0, Immature Gran % (Auto) 0.300, Neut % (Auto) 62.8, Lymph % (Auto) 17.8 L, Martin % (Auto) 14.2 H, Eos % (Auto) 4.8, Baso % (Auto) 0.1, Absolute Neuts (auto) 4.5, Absolute Lymphs (auto) 1.27, Nucleated RBC % 0 09/25/21 06:46: POC Glucose 110 H 09/25/21 11:40: POC Glucose 175 H 09/25/21 16:43: POC Glucose 161 H Physical Exam Narrative Const alert, oriented x3 and no apparent distress General Appearance: cooperative HEENT normocephalic and moist oral mucous membranes Eyes PERRL, EOMs intact bilaterally and conjunctivae normal Neck supple and no JVD Resp normal respiratory effort, no retractions and no use of accessory muscles Auscultation: diminished lung sounds; Negative for crackles, rales, rhonchi or wheezes Cardio regular rate, regular rhythm, S1 normal heart sound, S2 normal heart sound and no murmurs GI soft to palpation, non-tender, distended consistent with ascites Extremity no clubbing, cyanosis or edema Skin Skin Narrative: Multiple lacerations and abrasions over his face and right upper extremity.? He has significant bruising and swelling over his left upper extremity from a fall previously.? He says it is painful but sensation is intact. Neuro no focal motor deficits and no sensory deficits noted Psych affect normal Appearance: appropriate Assessment & Plan Assessment/Plan (1) Cirrhosis: PLAN: He is not showing any other signs of decompensation at this time other than possible hepatorenal syndrome and ascites. I am not convinced that his ascites is secondary to portal hypertension at this time. This is due to the low SAG gradient. He will need biochemical markers including tumor markers AFP, CA 19-9, CEA for for evaluation of his decompensated cirrhosis. Continue therapy for hepatorenal syndrome. (2) Ascites: PLAN: Patient is status post paracentesis. He does not seem to be accumulating fluid as fast. He is not on aggressive diuretic therapy at this time due to worsening renal failure. Charges/Coding Visit Charges Inpatient E&M: 79329 Subs Hosp L2
[2021-09-25 21:26] VITALS: BP 129/77; PULSE 63; RESP 18; TEMP 36.9; O2SAT 99
[2021-09-25 21:56] LABS: Bedside Glucose 200 mg/dL (74-106)
[2021-09-25] MEDS: Atorvastatin Calcium 40 MG Tablet PO (22:05)
[2021-09-26 04:00] VITALS: BP 121/74; PULSE 70; RESP 16; TEMP 36.7; O2SAT 98
[2021-09-26] MEDS: Morphine 2 MG/ML Syringe IV (05:50)
[2021-09-26] MEDS: 0.9% Saline Lock 10 ML Syringe IV ×3 (05:51→17:24)
[2021-09-26] MEDS: Octreotide 0.1 MG/ML ML SC (05:57)
[2021-09-26 06:52] LABS: Albumin, Serum 2.2 g/dL (3.2-5.0); BUN 83 mg/dL (7-18); BUN/Creat Ratio 14.2 RATIO (10-20); Calcium,Total 7.2 mg/dL (8.5-10.1); Chloride 105 mmol/L (98-107); Creatinine, Serum 5.83 mg/dL (0.70-1.30); EST Glomerular Filtration Rate 10 mL/min (>60); Est Glom Filt Rate - Afr Amer 12 mL/min (>60); Estimated Creatinine Clearance 9.56 ml/min; Glucose 190 mg/dL (74-106); Phosphorus 6.6 mg/dL (2.5-4.9); Potassium 3.5 mmol/L (3.5-5.1); Sodium Level 136 mmol/L (136-145)
[2021-09-26 08:08] VITALS: BP 113/58; PULSE 80; RESP 20; TEMP 36.7; O2SAT 95
[2021-09-26] MEDS: Calcium Acetate 667 MG Capsule PO ×3 (08:10→17:23)
[2021-09-26] MEDS: Midodrine HCl 5 MG Tablet 10 MG PO ×3 (08:10→17:23)
--- NOTE | 2021-09-26 09:15 | PCM.PROGNOTE ---
Subjective Subjective No events overnight. Patient is tolerating a diet. He still is not making much urine. Objective Data Objective Data Vital Signs: Vital Signs Temp Pulse Resp BP Pulse Ox 98.0 F 80 20 H 113/58 L 95 09/26/21 08:08 09/26/21 08:08 09/26/21 08:08 09/26/21 08:08 09/26/21 08:08 Oxygen Delivery Method [3] Room Air Oxygen Delivery Method [2] Room Air Oxygen Delivery Method [1 ( Room Air Initial Baseline)] Oxygen Delivery Method Room Air Weight: 194 lb 0.003 oz Body Mass Index (BMI) 27.8 Intake & Output: Intake and Output for Last 24 Hours 09/24/21 09/25/21 09/26/21 23:59 23:59 23:59 Intake Total 2216.66 / 2216.66 1000 / 1000 Output Total 5975 / 5975 1550 / 1550 400 / 400 Balance -3758.34 / -3758.34 -550 / -550 -400 / -400 Lab / Micro Data Result Diagrams: 09/25/21 03:05 09/26/21 05:34 Labs: Laboratory Results - last 24 hr 09/23/21 16:55: Anti-Mitochondrial Ab <20.0 09/23/21 16:55: Tumor Marker AFP < 0.9, CA 19-9 Antigen 37 H 09/23/21 16:55: Hepatitis A IgM Ab Negative, Hep Bs Antigen Negative, Hep B Core IgM Ab Negative, Hepatitis C Ab (EIA) <0.1, Hep C Ab Comment Comment 09/23/21 16:55: LAVELL-1 Antibody <0.2, SS-A/Ro IgG Antibody < 0.2, SS-B/La IgG Antibody < 0.2, Sm (Jeffrey) Antibody <0.2, [employer] INSTRUCTOR Antibody 0.2, Scl-70 Scleroderma Ab <0.2, Double Strand DNA Ab <1, Centromere B Antibody <0.2 09/25/21 11:40: POC Glucose 175 H 09/25/21 16:43: POC Glucose 161 H 09/25/21 21:53: POC Glucose 200 H 09/26/21 05:34: Sodium 136, Potassium 3.5, Chloride 105, Carbon Dioxide 18.0 L, BUN 83 H, Creatinine 5.83 H, Estim Creat Clear Calc 9.56, Est GFR (MDRD) Af Amer 12 L, Est GFR (MDRD) Non-Af 10 L, BUN/Creatinine Ratio 14.2, Glucose 190 H, Calcium 7.2 L, Phosphorus 6.6 H, Albumin 2.2 L Physical Exam Narrative Const alert, oriented x3 and no apparent distress General Appearance: cooperative HEENT normocephalic and moist oral mucous membranes Eyes PERRL, EOMs intact bilaterally and conjunctivae normal Neck supple and no JVD Resp normal respiratory effort, no retractions and no use of accessory muscles Auscultation: diminished lung sounds; Negative for crackles, rales, rhonchi or wheezes Cardio regular rate, regular rhythm, S1 normal heart sound, S2 normal heart sound and no murmurs GI soft to palpation, non-tender, distended consistent with ascites Extremity no clubbing, cyanosis or edema Skin Skin Narrative: Multiple lacerations and abrasions over his face and right upper extremity.? He has significant bruising and swelling over his left upper extremity from a fall previously.? He says it is painful but sensation is intact. Neuro no focal motor deficits and no sensory deficits noted Psych affect normal Appearance: appropriate Assessment & Plan Assessment/Plan (1) Cirrhosis: PLAN: Decompensated cirrhosis with ascites and acute renal failure. He is stable from a cirrhosis standpoint. He is not showing any signs of encephalopathy or GI bleeding. Continue lactulose and Xifaxan. (2) Ascites: PLAN: His abdomen is a little bit more pronounced today. He will probably need another paracentesis prior to him being discharged or transferred from the hospital since we cannot pursue aggressive diuretic therapy (3) Acute renal failure: PLAN: His urine sodium was low initially which is not consistent with hepatorenal syndrome. I was hoping that he would be in the 10% of patients that have hepatorenal syndrome type II respond to therapy. However his kidney function continues to worsen. I will stop octreotide but continue midodrine as it can help with ascites formation. Charges/Coding Visit Charges Inpatient E&M: 74351 Subs Hosp L3
--- NOTE | 2021-09-26 10:18 | PN.HOSP_ITS ---
Subjective Subjective More irritated today, he states he just wants to go home. There seems to be some confusion as he does not seem to remember that he has agreed to go to a [facility] Objective Data Objective Data Vital Signs: Vital Signs Temp Pulse Resp BP Pulse Ox 98.0 F 80 20 H 113/58 L 95 09/26/21 08:08 09/26/21 08:08 09/26/21 08:08 09/26/21 08:08 09/26/21 08:08 Oxygen Delivery Method [3] Room Air Oxygen Delivery Method [2] Room Air Oxygen Delivery Method [1 ( Room Air Initial Baseline)] Oxygen Delivery Method Room Air Weight: 194 lb 0.003 oz Body Mass Index (BMI) 27.8 Intake & Output: Intake and Output for Last 24 Hours 09/25/21 09/26/21 09/27/21 03:59 03:59 03:59 Intake Total 2216.66 / 2216.66 1000 / 1000 Output Total 5975 / 5975 1550 / 1550 400 / 400 Balance -3758.34 / -3758.34 -550 / -550 -400 / -400 Lab / Micro Data Result Diagrams: 09/25/21 03:05 09/26/21 05:34 Labs: Laboratory Results - last 24 hr 09/23/21 16:55: Anti-Mitochondrial Ab <20.0 09/23/21 16:55: Tumor Marker AFP < 0.9, CA 19-9 Antigen 37 H 09/23/21 16:55: Hepatitis A IgM Ab Negative, Hep Bs Antigen Negative, Hep B Core IgM Ab Negative, Hepatitis C Ab (EIA) <0.1, Hep C Ab Comment Comment 09/23/21 16:55: LAVELL-1 Antibody <0.2, SS-A/Ro IgG Antibody < 0.2, SS-B/La IgG Antibody < 0.2, Sm (Jeffrey) Antibody <0.2, POWER [employer] INSTALLER AND REPAIRER Antibody 0.2, Scl-70 Scleroderma A b <0.2, Double Strand DNA Ab <1, Centromere B Antibody <0.2 09/25/21 11:40: POC Glucose 175 H 09/25/21 16:43: POC Glucose 161 H 09/25/21 21:53: POC Glucose 200 H 09/26/21 05:34: Sodium 136, Potassium 3.5, Chloride 105, Carbon Dioxide 18.0 L, BUN 83 H, Creatinine 5.83 H, Estim Creat Clear Calc 9.56, Est GFR (MDRD) Af Amer 12 L, Est GFR (MDRD) Non-Af 10 L, BUN/Creatinine Ratio 14.2, Glucose 190 H, Calcium 7.2 L, Phosphorus 6.6 H, Albumin 2.2 L Physical Exam Narrative Const alert, oriented x3 and no apparent distress General Appearance: cooperative HEENT normocephalic and moist oral mucous membranes Eyes PERRL, EOMs intact bilaterally and conjunctivae normal Neck supple and no JVD Resp normal respiratory effort, no retractions and no use of accessory muscles Auscultation: diminished lung sounds; Negative for crackles, rales, rhonchi or wheezes Cardio regular rate, regular rhythm, S1 normal heart sound, S2 normal heart sound and no murmurs GI soft to palpation, non-tender, distended consistent with ascites Extremity no clubbing, cyanosis or edema Skin Skin Narrative: Multiple lacerations and abrasions over his face and right upper extremity.? He has significant bruising and swelling over his left upper extremity from a fall previously.? He says it is painful but sensation is intact. Neuro no focal motor deficits and no sensory deficits noted Psych affect normal Appearance: appropriate Assessment & Plan Assessment/Plan (1) Acute renal failure: (2) Coronary artery disease: (3) Diabetes: (4) Essential (primary) hypertension: (5) Depression: PLAN: Plan 1. Acute renal failure/weakness and debility ? Unsure as to the etiology, he is on Bumex at home as well as Coreg ? We will continue with gentle IV hydration and nephrology was consulted for evaluation and assistance in management ? We will consult wound care to help with the use will multiple superficial wounds. ? His left upper extremity is very swollen but does not appear to be infected at this time will allow for gradual resolution of the swelling if it does get any worse and he loses sensation will need emergency transfer to tertiary care center that has hand surgery. At this time he still has sensation though mobility is limited secondary to the swelling ? PT/OT for evaluation and placement in a SNF 2. 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 Continue with his PPI ? Appreciate gastroenterology's assistance ? Paracentesis withdrew about 5 L, continue with albumin 3 times daily. SAAG indicates that this is likely not due to portal hypertension ? Has accumulated little bit more fluid in his abdomen already, he will likely need another paracentesis prior to discharge ? Continue with midodrine, lactulose, Xifaxan ? AST and ALT are normal, alk phos is elevated 3. CAD status post CABG/HTN/chronic systolic CHF ? Blood pressures are stable, will continue with his home Coreg ? Nephrology is ordered IV Lasix ? Continue with Lipitor 4. DM2 ? Hold his home medications ? Placed on a sliding scale insulin ? Accu-Cheks AC at bedtime 5. GERD ? Stable ? Continue with PPI 6. BPH ? Stable ? Continue with Flomax DVT: SCD's Charges/Coding Visit Charges Inpatient E&M: 33680 Subs Hosp L2
[2021-09-26] MEDS: Lactulose 20 GM/30 ML UDC 10 GM PO ×2 (11:05→21:54)
[2021-09-26] MEDS: Albumin Human 25% (100 mL) 25 GM/100 ML BAG IV (11:05)
[2021-09-26] MEDS: Furosemide 100 MG/10 ML Vial 80 MG IV ×2 (11:05→17:23)
[2021-09-26] MEDS: Tamsulosin HCl 0.4 MG Capsule PO ×2 (11:06→21:54)
[2021-09-26] MEDS: Pantoprazole Sodium 20 MG Tablet PO (11:10)
[2021-09-26] MEDS: Insulin Lispro 100 UNIT/ML INSULN.PEN SC ×2 (11:48→17:23)
[2021-09-26 11:56] LABS: Bedside Glucose 255 mg/dL (74-106)
--- NOTE | 2021-09-26 13:39 | PN.RENAL_ITS ---
Subjective Subjective denies nausea, vomiting, edema persists. Urine output improving with iv lasix, albumin. Discussed with pt and pt spouse about dialysis. Creatinine worse today at 5.8. Underwent large volume paracentesis. Still with significant ascites Objective Data Objective Data Vital Signs: Vital Signs Temp Pulse Resp BP Pulse Ox 98.0 F 80 20 H 113/58 L 95 09/26/21 08:08 09/26/21 08:08 09/26/21 08:08 09/26/21 08:08 09/26/21 08:08 Oxygen Delivery Method [3] Room Air Oxygen Delivery Method [2] Room Air Oxygen Delivery Method [1 ( Room Air Initial Baseline)] Oxygen Delivery Method Room Air Weight: 87.997 kg Body Mass Index (BMI) 27.8 Intake & Output: Intake and Output for Last 24 Hours 09/24/21 09/25/21 09/26/21 23:59 23:59 23:59 Intake Total 2216.66 / 2216.66 1000 / 1000 220 / 220 Output Total 5975 / 5975 1550 / 1550 850 / 850 Balance -3758.34 / -3758.34 -550 / -550 -630 / -630 Lab / Micro Data Result Diagrams: 09/27/21 05:20 09/27/21 05:20 Labs: Laboratory Results - last 24 hr 09/23/21 16:55: Tumor Marker AFP < 0.9, CA 19-9 Antigen 37 H 09/23/21 16:55: Hepatitis A IgM Ab Negative, Hep Bs Antigen Negative, Hep B Core IgM Ab Negative, Hepatitis C Ab (EIA) <0.1, Hep C Ab Comment Comment 09/25/21 16:43: POC Glucose 161 H 09/25/21 21:53: POC Glucose 200 H 09/26/21 05:34: Sodium 136, Potassium 3.5, Chloride 105, Carbon Dioxide 18.0 L, BUN 83 H, Creatinine 5.83 H, Estim Creat Clear Calc 9.56, Est GFR (MDRD) Af Amer 12 L, Est GFR (MDRD) Non-Af 10 L, BUN/Creatinine Ratio 14.2, Glucose 190 H, Calcium 7.2 L, Phosphorus 6.6 H, Albumin 2.2 L 09/26/21 11:41: POC Glucose 255 H Physical Exam Const alert and oriented x3 Resp Auscultation: wheezes Cardio regular rate and no rub GI non-tender GI Narrative: distended, less tense ascites Auscultation: normoactive bowel sounds Palpation: ascites Bladder / Kidney Exam: catheter in place Extremity General Extremity: edema bilateral Neuro Sensorium / Orientation: awake and alert Psych cooperative Assessment & Plan Assessment/Plan (1) Acute renal failure: PLAN: Creatinine 5.8 today after large volume paracentesis, on iv lasix and alb umin with improved urine volume. Discussed dialysis due to rising creatinine, anasarca. Pt agreed to dialysis if needed. Will continue with current management. Consult GS for tunneled dialysis catheter. No urgency to initiate dialysis but will likely need to initiate during current hospitalization. Will need to arrange outpt dialysis prior to discharge. Baseline creatinine 2-2.9. DW primary service, nursing staff (2) Coronary artery disease: PLAN: s/p CABG, defibrillator, CMP EF 35% (3) Essential (primary) hypertension: (4) Ascites: PLAN: s/p paracentesis, GI following (5) Cirrhosis: PLAN: GI following (6) Hyperphosphatemia: PLAN: started binders (7) Anasarca: PLAN: continue with iv lasix. Remove fluid on dialysis. (8) DM2 (diabetes mellitus, type 2): PLAN: stable (9) Anemia of chronic disease: PLAN: check iron studies
[2021-09-26 14:58] VITALS: BP 116/58; PULSE 68; RESP 18; TEMP 36.6; O2SAT 97
--- NOTE | 2021-09-26 17:09 | EX.PCM.CON.S ---
Assessment & Plan Assessment/Plan (1) Acute renal failure: PLAN: This is an 85-year-old male, with numerous medical comorbidities, who has experienced acute renal failure with an etiology incompletely determined, but now requires establishment of access for hemodialysis.Nephrology has requested surgical consultation for consideration of tunneled hemodialysis catheter placement.We will plan to perform this tomorrow morning in the OR under local MAC. Procedure has been described in detail to both the patient, his spouse, and his present family. All questions were answered to their satisfaction. Consent to be obtained on the floor for placement of a right versus left tunneled hemodialysis catheter placement. Patient should be held n.p.o. past midnight in anticipation of this procedure. HPI Consult Data Date of Consult: 09/26/21 HPI Narrative Reason for Consultation: Placement of tunneled hemodialysis catheter HPI Narrative: ELENA PAZ, is a 85 M who presented to Hospital on 09/21/2021 after a mechanical fall. He was noted to have a creatinine rise to 6 from a baseline of 2. He notes this has been a recent update to his health history as he just learned this following a admission at [facility] in [place] last week.Since his admission he has been under work-up for both this acute renal failure as well as acute liver failure with the development of significant peritoneal ascites.At this point he is likely to require hemodialysis given his relative oliguria and slow response to conservative measures and therefore nephrology has consulted surgery for consideration of tunneled hemodialysis catheter placement.Mr. Biswas and his deny any prior central line placement.He expresses frustration with all of his recent news in wants to know the cause. Mr. Paz does have a history of coronary artery disease and NC status post CABG as well as defibrillator placement. [facility] Medical History (Updated 09/26/21 @ 13:[address] Celeste Smith, DO) Abdominal ascites Acute insomnia Atherosclerotic heart disease of [place] coronary artery without angina pectoris Benign prostatic hyperplasia without lower urinary tract symptoms Cardiomyopathy, unspecified Chronic kidney disease, stage 3 unspecified Cirrhosis Coronary artery disease Depression Diabetes Essential (primary) hypertension Former smoker GERD (gastroesophageal reflux disease) Heart failure, unspecified Hiatal hernia Hypertension ICD (implantable cardioverter-defibrillator) in place Insomnia Irregular heart beat Myocardial infarct Pressure ulcer, buttock Stroke/cerebrovascular accident Transient cerebral ischemic attack, unspecified Type 2 diabetes mellitus Unspecified atrial fibrillation Home Medications carvedilol 12.5 mg tablet 12.5 mg PO BID HEART 07/02/21 [History Last Taken 09/21/21 07:00] glipizide 5 mg tablet 5 mg PO BID DIABETES 07/02/21 [History Last Taken 09/21/21 07:00] omeprazole 20 mg capsule,delayed release 20 mg PO DAILY GERD 07/02/21 [History Last Taken Unknown] tamsulosin 0.4 mg capsule (Flomax) 0.4 mg PO BID URINATION 07/02/21 [History Last Taken 09/20/21 21:00] atorvastatin 40 mg tablet 40 tab PO QHS CHOLESTEROL 09/21/21 [History Last Taken 09/20/21 21:00] bumetanide 1 mg tablet 1 tab PO BID WATER PILL 09/21/21 [History Last Taken 09/21/21 07:00] Allergy/AdvReac Type Severity Reaction Status Date / Time No Known Allergies Allergy Verified 07/02/21 16:31 Family History (Updated 07/02/21 @ 16:38 by Thelma Reyes) Mother Bladder cancer Surgical History (Updated 09/22/21 @ 16:[address] Celeste Smith, DO) History of hip surgery Hx of CABG Social History (Updated 07/02/21 @ 16:39 by Thelma Reyes) Smoking Status: Former smoker alcohol intake: current alcohol intake frequency: 0-2 drinks per day Physical Exam Const alert and oriented x3 General Appearance: cooperative Chest Chest Narrative: Patient with ICD to left chest. No scars to right chest. Midline sternotomy incision well-healed. Resp Resp Narrative: Slightly labored breathing when speaking. Extremity Extremity Narrative: Bilateral upper extremities have Kerlix wrapping and there is significant discoloration/edema to left upper extremity consistent with recent trauma. Skin Skin Narrative: Numerous ecchymoses across the maxilla, and along his extremities. Lab / Micro Data Result Diagrams: 09/25/21 03:05 09/26/21 05:34 Labs: Laboratory Results - last 24 hr 09/23/21 16:55: Tumor Marker AFP < 0.9, CA 19-9 Antigen 37 H 09/23/21 16:55: Hepatitis A IgM Ab Negative, Hep Bs Antigen Negative, Hep B Core IgM Ab Negative, Hepatitis C Ab (EIA) <0.1, Hep C Ab Comment Comment 09/25/21 21:53: POC Glucose 200 H 09/26/21 05:34: Sodium 136, Potassium 3.5, Chloride 105, Carbon Dioxide 18.0 L, BUN 83 H, Creatinine 5.83 H, Estim Creat Clear Calc 9.56, Est GFR (MDRD) Af Amer 12 L, Est GFR (MDRD) Non-Af 10 L, BUN/Creatinine Ratio 14.2, Glucose 190 H, Calcium 7.2 L, Phosphorus 6.6 H, Albumin 2.2 L 09/26/21 11:41: POC Glucose 255 H Charges/Coding Visit Charges Inpatient E&M: 56593 Init Hosp L2
[2021-09-26 17:20] LABS: Bedside Glucose 157 mg/dL (74-106)
--- NOTE | 2021-09-26 17:44 | NURSING ---
neither pt nor his spouse are able to identify what specific type of ICD patient has.
[2021-09-26 18:41] LABS: International Normalized Ratio 1.3; Prothrombin Time (Protime)PT. 15.9 SECONDS (11.7-14.9)
[2021-09-26 20:30] VITALS: BP 121/77; PULSE 84; RESP 16; TEMP 37.1; O2SAT 97
[2021-09-26] MEDS: Atorvastatin Calcium 40 MG Tablet PO (21:54)
[2021-09-26 22:01] LABS: Bedside Glucose 163 mg/dL (74-106)
[2021-09-27] VITALS (14 sets, daily range): BP systolic 86–134; BP diastolic 52–66; PULSE 62–91; RESP 16–18; TEMP 36.6–37.3; O2SAT 94–96; BMI 27.8
[2021-09-27 05:47] LABS: Absolute Lymphocyte Count 1.22 X10^3/uL (0.83-4.51); Absolute Neutrophil Count 3.8 X10^3/uL (2.0-7.7); Basophil# 0.01 X10^3/uL; Basophil% 0.2 % (0-1); Eosinophils% 4.8 % (0-5); Hematocrit 26.9 % (40-54); Hemoglobin 8.9 g/dL (13.0-16.5); Lymphocyte # 1.22 X10^3/ul (0.83-4.51); Lymphocyte % 19.6 % (19-41); Mean Corp Hgb Conc 33.1 g/dL (32-36); Mean Corpuscular Hgb 32.6 pg (27.0-32.0); Mean Corpuscular Volume 98.5 fL (80-94); Mean Platelet Vol. 9.8 fl (6.2-12.0); Monocyte# 0.89 X10^3/uL; Monocyte% 14.3 % (0-10); NRBC Flagged by Analyzer 0 % (0-5); Neutrophil # 3.77 X10^3/uL (2.7-7.7); Neutrophil % 60.8 % (47-70); Platelet Count 139 K/mm3 (150-450); RBC Distribution Width CV 14.4 % (11.6-14.6); RBC Distribution Width SD 51.5 fl (35.1-43.9); Red Blood Count 2.73 M/mm3 (4.6-6.2); White Blood Count 6.2 K/mm3 (4.4-11.0)
--- NOTE | 2021-09-27 06:00 | EKG12_ITS ---
Test Reason : AM EKG Blood Pressure : / mmHG Vent. Rate : 082 BPM Atrial Rate : 082 BPM P-R Int : 000 ms QRS Dur : 114 ms QT Int : 380 ms P-R-T Axes : 000 012 166 degrees QTc Int : 443 ms Electronic ventricular pacemaker Abnormal ECG Confirmed by LUAN AGUILAR, JOHN ([id number]), design editor RACHEL MINER ([id number]) on 09/29/2021 8:35:06 AM Referred By: SHANI Confirmed By:JOHN ROLAND MD
[2021-09-27 06:28] LABS: AST(SGOT) 18 U/L (15-37); Alanine Aminotransfer ALT/SGPT 18 U/L (16-61); Albumin, Serum 2.1 g/dL (3.2-5.0); Alkaline Phosphatase 206 U/L (45-117); Anion Gap 13 (5-15); BUN 86 mg/dL (7-18); BUN/Creat Ratio 14.6 RATIO (10-20); Bilirubin, Direct 0.31 mg/dL (0.00-0.30); Calcium,Total 7.5 mg/dL (8.5-10.1); Chloride 105 mmol/L (98-107); Creatinine, Serum 5.88 mg/dL (0.70-1.30); EST Glomerular Filtration Rate 10 mL/min (>60); Est Glom Filt Rate - Afr Amer 12 mL/min (>60); Estimated Creatinine Clearance 9.48 ml/min; Globulin 2.5 g/dL (2.2-4.2); Glucose 155 mg/dL (74-106); Magnesium 1.8 mg/dL (1.6-2.6); Phosphorus 6.8 mg/dL (2.5-4.9); Potassium 3.4 mmol/L (3.5-5.1); Protein, Total 4.6 g/dL (6.4-8.2); Sodium Level 136 mmol/L (136-145)
[2021-09-27 06:30] LABS: Bedside Glucose 142 mg/dL (74-106)
[2021-09-27 06:35] LABS: International Normalized Ratio 1.4; Prothrombin Time (Protime)PT. 17.1 SECONDS (11.7-14.9)
--- NOTE | 2021-09-27 06:50 | NURSING ---
Spoke to pts Tawnya and made her aware pt is going for procedure at 0800 this am.
[2021-09-27] MEDS: 0.9% Saline Lock 10 ML Syringe IV ×3 (07:43→17:54)
[2021-09-27] MEDS: Lactated Ringers 1,000 ML 15 ML IV (07:45)
[2021-09-27 07:53] LABS: Hemoglobin A1c 6.7 % (3.8-5.6)
[2021-09-27] MEDS: Lidocaine 1% /Epi 1:100 (20ml) 20 ML Vial (08:31)
[2021-09-27] MEDS: Heparin 10,000 UNITS/10 ML Vial 10000 UNITS (09:00)
--- NOTE | 2021-09-27 09:21 | OP.PCM_ITS ---
Report of Operation Date of Procedure: 09/27/21 Pre-Operative Diagnosis: 1. Acute on chronic renal failure 2. Diabetes mellitus 3. Abdominal ascites 4. Coronary artery disease status post GA, CABG, and AICD placement Post-Operative Diagnosis: Same Surgery/Procedure Performed:: Placement of ultrasound-guided right internal jugular tunneled hemodialysis catheter (19 cm catheter length) Description of Surgical Findings:: ? Normal vascular anatomy with easy passage of wire ? Abundant ectopy with advancement of wire Surgeon: Devon Busby production quality analyst: None Type of Anesthesia: MAC/Supplemental/Local Anesthesiologist: Krystyna Kay Specimen's removed: None Drains: None Estimated Blood Loss (mL): 25 Description of Procedure: After appropriate identification in the preoperative holding area the patient was brought to the operating room where that they were positioned supine on the operating room table. Preoperative antibiotics were completely administered. Anesthesia placed a magnet on patient's AICD in the left upper chest. Sedation was begun per anesthesia and the patient's right neck was prepped and draped in usual sterile fashion after confirming patency of the right internal jugular vein with bedside ultrasound. Formal timeout was conducted to confirm both the patient and the procedure. Procedure was begun with ultrasound-guided access of the right internal jugular vein using a micropuncture access kit after a wheal of local anesthetic was placed overlying the internal jugular vein. Fluoroscopy confirmed appropriate position of the wire and the micro access sheath. The 035 guidewire from the catheter kit was placed through the micro access sheath and again fluoroscopy was used to confirm this placement. This wire placement resulted in abundant ectopy on anesthesia's monitor so we were careful to keep the wire withdrawn more than usual to avoid further recurrence. The insertion site was then enlarged sharply and bluntly. Measuring back from the proximal insertion site on the catheter, we determined that the tunneling site would need to be at least 8 cm away from the insertion site. Therefore this was measured out on the patient's chest and a counterincision was made at this point after instilling local anesthetic. A gentle curve of the tunneling tract to the insertion site was also instilled with local anesthetic. Then the catheter was connected to the tunneling device and was tunneled to the insertion site. Next the insertion site was serially dilated and the peel-away sheath was placed under fluoroscopy. The catheter was fed through the peel-away sheath and once we neared completion another fluoroscopy image was obtained. Functionally, the catheter was tested with aspiration and flush of injectable saline which it did with ease. The insertion site was then closed with 2 interrupted 3-0 nylon stitches. Another 3-0 nylon stitch was used to close down the insertion site at the tunneling entrance as a means of creating a cerclage. Lastly, the catheter was secured at the tiedown points on each port with a interrupted 3-0 nylon. Now the catheter was locked with 2 mL heparinized saline (concentration 1000 units/mL) per package specification. A Biopatch was placed around the catheter and then a folded 4 x 4 gauze was placed covering the catheter and the tunneling site. Lastly this ensemble is taped in the place with the 3000 drape dressing. Patient was then allowed to emerge from sedation and was taken to PACU in stable condition. A chest x-ray was ordered in PACU for review of the catheter placement and to exclude pneumothorax. Complications None Admit VTE Documentation VTE Present on Admission: No
--- NOTE | 2021-09-27 09:24 | RAD_ITS ---
STUDY: X-RAY CHEST REASON FOR EXAM: Male, 85 years old. Dialysis catheter placement TECHNIQUE: Single AP portable view of the chest. COMPARISON: Prior comparison studies are not available for review at this time. FINDINGS: Right-sided permacath with the tip in the superior vena cava. Dual-chamber left-sided cardiac pacer device. The prominent markings in right perihilar right lower lung zones. The left retrocardiac region is not clearly seen. There is no demonstrated pleural abnormality. Sternal cerclage wires and vascular clips are present from a prior sternotomy and coronary artery bypass graft procedure (CABG). Atrial appendage clip is seen. Normal mediastinum and macario. Normal visualized pulmonary arteries. There is atherosclerotic calcification of the aortic arch with tortuosity. The thoracic spine is not well-visualized. Degenerative changes in the right shoulder. There is no demonstrated abnormality of the visualized soft tissue structures of the upper abdomen. RAD/CXR for Line Placement IMPRESSION: Slightly prominent markings in right perihilar right vertebral couldn''t be chronic. Mild infiltrates is difficult to exclude. Status post permacath placement. Electronically Signed: Tristen Carson MD at 10:20 EDT ,
[2021-09-27] MEDS: Midodrine HCl 5 MG Tablet 10 MG PO ×3 (10:28→21:10)
[2021-09-27] MEDS: Folic Acid/Vitamin B Comp W-C 1 Capsule 1 CAP PO (10:28)
[2021-09-27] MEDS: Pantoprazole Sodium 20 MG Tablet PO (10:28)
[2021-09-27] MEDS: Tamsulosin HCl 0.4 MG Capsule PO ×2 (10:29→21:10)
[2021-09-27] MEDS: Calcium Acetate 667 MG Capsule PO ×2 (10:29→16:45)
[2021-09-27] MEDS: Lactulose 20 GM/30 ML UDC 10 GM PO ×2 (10:30→21:11)
[2021-09-27] MEDS: Albumin Human 25% (100 mL) 25 GM/100 ML BAG IV (10:31)
[2021-09-27] MEDS: Furosemide 100 MG/10 ML Vial 80 MG IV ×2 (10:47→17:53)
[2021-09-27] MEDS: Epoetin Alfa epbx 10,000 UNITS/ML 10000 UNIT SC (10:56)
--- NOTE | 2021-09-27 11:01 | NURSING ---
talked with Ace gonzalez nursing supervisor [employer] at [facility], they also do not have record of brand of ICD in their records.
--- NOTE | 2021-09-27 11:59 | PN.HOSP_ITS ---
Subjective Subjective Doing well, no issues overnight. He did agree to dialysis and will be going down for tunneled catheter today. Objective Data Objective Data Vital Signs: Vital Signs Temp Pulse Resp BP Pulse Ox 97.9 F 70 18 126/56 H 94 09/27/21 10:14 09/27/21 10:41 09/27/21 10:14 09/27/21 10:41 09/27/21 10:14 Oxygen Delivery Method [3] Room Air Oxygen Delivery Method [2] Room Air Oxygen Delivery Method [1 ( Room Air Initial Baseline)] Oxygen Delivery Method Room Air Weight: 194 lb Body Mass Index (BMI) 27.8 Intake & Output: Intake and Output for Last 24 Hours 09/26/21 09/27/21 09/28/21 03:59 03:59 03:59 Intake Total 1000 / 1000 340 / 340 49.75 / 49.75 Output Total 1550 / 1550 7150 / 7150 350 / 350 Balance -550 / -550 -6810 / -6810 -300.25 / -300.25 Lab / Micro Data Result Diagrams: 09/27/21 05:20 09/27/21 05:20 Labs: Laboratory Results - last 24 hr 09/26/21 17:12: POC Glucose 157 H 09/26/21 18:10: PT 15.9 H, INR 1.3 09/26/21 21:53: POC Glucose 163 H 09/27/21 05:20: Sodium 136, Potassium 3.4 L, Chloride 105, Carbon Dioxide 18.0 L , Anion Gap 13, BUN 86 H, Creatinine 5.88 H, Estim Creat Clear Calc 9.48, Est GFR (MDRD) Af Amer 12 L, Est GFR (MDRD) Non-Af 10 L, BUN/Creatinine Ratio 14.6, Glucose 155 H, Calcium 7.5 L, Phosphorus 6.8 H, Magnesium 1.8, Total Bilirubin 0.80, Direct Bilirubin 0.31 H, AST 18, ALT 18, Alkaline Phosphatase 206 H, Total Protein 4.6 L, Albumin 2.1 L, Globulin 2.5 09/27/21 05:20: WBC 6.2, RBC 2.73 L, Hgb 8.9 L, Hct 26.9 L, MCV 98.5 H, MCH 32.6 H, MCHC 33.1, RDW Std Deviation 51.5 H, RDW Coeff of Jewels 14.4, Plt Count 139 L, MPV 9.8, Immature Gran % (Auto) 0.300, Neut % (Auto) 60.8, Lymph % (Auto) 19.6, [place] % (Auto) 14.3 H, Eos % (Auto) 4.8, Baso % (Auto) 0.2, Absolute Neuts (auto) 3.8, Absolute Lymphs (auto) 1.22, Nucleated RBC % 0 09/27/21 05:20: PT 17.1 H, INR 1.4 09/27/21 05:20: Hemoglobin A1c 6.7 H 09/27/21 06:26: POC Glucose 142 H Radiography Diagnostic Testing: Radiology Impression Chest X-Ray 09/27/21 09:24 IMPRESSION: Slightly prominent markings in right perihilar right vertebral couldn''t be chronic. Mild infiltrates is difficult to exclude. Status post permacath placement. Electronically Signed: Tristen Carson MD at 10:20 EDT , Physical Exam Narrative Const alert, oriented x3 and no apparent distress General Appearance: cooperative HEENT normocephalic and moist oral mucous membranes Eyes PERRL, EOMs intact bilaterally and conjunctivae normal Neck supple and no JVD Resp normal respiratory effort, no retractions and no use of accessory muscles Auscultation: diminished lung sounds; Negative for crackles, rales, rhonchi or wheezes Cardio regular rate, regular rhythm, S1 normal heart sound, S2 normal heart sound and no murmurs GI soft to palpation, non-tender, distended consistent with ascites Extremity no clubbing, cyanosis or edema Skin Skin Narrative: Multiple lacerations and abrasions over his face and right upper extremity.? He has significant bruising and swelling over his left upper extremity from a fall previously.? He says it is painful but sensation is intact. Neuro no focal motor deficits and no sensory deficits noted Psych affect normal Appearance: appropriate Assessment & Plan Assessment/Plan (1) Acute renal failure: (2) Coronary artery disease: (3) Diabetes: (4) Essential (primary) hypertension: (5) Depression: PLAN: Plan 1. Acute renal failure/weakness and debility ? Unsure as to the etiology, he is on Bumex at home as well as Coreg ? We will continue with gentle IV hydration and nephrology was consulted for evaluation and assistance in management ? We will consult wound care to help with the use will multiple superficial wounds. ? His left upper extremity is very swollen but does not appear to be infected at this time will allow for gradual resolution of the swelling if it does get any worse and he loses sensation will need emergency transfer to tertiary care center that has hand surgery. At this time he still has sensation though mobility is limited secondary to the swelling ? PT/OT for evaluation and placement in a SNF ? Plan for tunneled catheter today to start dialysis 2. 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 Continue with his PPI ? Appreciate gastroenterology's assistance ? Paracentesis withdrew about 5 L, continue with albumin 3 times daily. SAAG indicates that this is likely not due to portal hypertension ? Has accumulated little bit more fluid in his abdomen already, he will likely need another paracentesis prior to discharge ? Continue with midodrine, lactulose, Xifaxan ? AST and ALT are normal, alk phos is elevated 3. CAD status post CABG/HTN/chronic systolic CHF ? Blood pressures are stable, will continue with his home Coreg ? Nephrology is ordered IV Lasix ? Continue with Lipitor 4. DM2 ? Hold his home medications ? Placed on a sliding scale insulin ? Accu-Cheks AC at bedtime 5. GERD ? Stable ? Continue with PPI 6. BPH ? Stable ? Continue with Flomax DVT: SCD's Charges/Coding Visit Charges Inpatient E&M: 78131 Subs Hosp L2
--- NOTE | 2021-09-27 12:20 | NURSING ---
received medical records after talking to Celeste Jeffrey nurse engineering administrator at [facility]. aware ICD is a medtronic device. medtronic pacer check completed. awaiting report.
--- NOTE | 2021-09-27 12:39 | NURSING ---
received call from Bernardo romero rep who states all looks fine at this time
[2021-09-27 16:51] LABS: Bedside Glucose 131 mg/dL (74-106)
[2021-09-27] MEDS: Insulin Lispro 100 UNIT/ML INSULN.PEN SC (21:10)
[2021-09-27] MEDS: Atorvastatin Calcium 40 MG Tablet PO (21:10)
[2021-09-27 21:11] LABS: Bedside Glucose 197 mg/dL (74-106)
[2021-09-28] VITALS (11 sets, daily range): BP systolic 98–123; BP diastolic 50–65; PULSE 66–96; RESP 16–18; TEMP 36.6–37.1; O2SAT 95–100
[2021-09-28 05:59] LABS: Absolute Lymphocyte Count 1.35 X10^3/uL (0.83-4.51); Basophil# 0.01 X10^3/uL; Basophil% 0.2 % (0-1); Eosinophil# 0.33 X10^3/uL; Hematocrit 28.5 % (40-54); Hemoglobin 9.3 g/dL (13.0-16.5); Lymphocyte # 1.35 X10^3/ul (0.83-4.51); Lymphocyte % 20.6 % (19-41); Mean Corp Hgb Conc 32.6 g/dL (32-36); Mean Corpuscular Hgb 32.4 pg (27.0-32.0); Mean Corpuscular Volume 99.3 fL (80-94); Mean Platelet Vol. 9.7 fl (6.2-12.0); Monocyte# 0.88 X10^3/uL; Monocyte% 13.4 % (0-10); NRBC Flagged by Analyzer 0 % (0-5); Neutrophil # 3.95 X10^3/uL (2.7-7.7); Neutrophil % 60.3 % (47-70); Platelet Count 144 K/mm3 (150-450); RBC Distribution Width CV 14.2 % (11.6-14.6); RBC Distribution Width SD 51.8 fl (35.1-43.9); Red Blood Count 2.87 M/mm3 (4.6-6.2); White Blood Count 6.6 K/mm3 (4.4-11.0)
[2021-09-28 06:27] LABS: Albumin, Serum 2.3 g/dL (3.2-5.0); Anion Gap 14 (5-15); BUN 88 mg/dL (7-18); BUN/Creat Ratio 14.4 RATIO (10-20); Chloride 104 mmol/L (98-107); Creatinine, Serum 6.13 mg/dL (0.70-1.30); EST Glomerular Filtration Rate 9 mL/min (>60); Est Glom Filt Rate - Afr Amer 11 mL/min (>60); Ferritin 226 ng/mL (26-388); Glucose 137 mg/dL (74-106); Iron 42 ug/dL (65-175); Iron Binding Capacity,Total 159 ug/dL (250-450); PERCENT IRON SATURATION 26.4 % (15.0-55.0); Phosphorus 6.8 mg/dL (2.5-4.9); Potassium 3.3 mmol/L (3.5-5.1); Sodium Level 137 mmol/L (136-145)
[2021-09-28 06:36] LABS: Bedside Glucose 151 mg/dL (74-106)
--- NOTE | 2021-09-28 08:10 | PCM.PN.SRG ---
Subjective Subjective Patient seen and examined during AM rounds. He is resting comfortably in bed. He states that he has very minimal discomfort with his catheter and it really only bothers him when he moves his head to the right. The catheter has not been used since placement yesterday. Objective Data Objective Data Vital Signs: Vital Signs Temp Pulse Resp BP Pulse Ox 98.2 F 82 16 114/63 97 09/28/21 02:37 09/28/21 04:29 09/28/21 02:37 09/28/21 02:37 09/28/21 02:37 Oxygen Delivery Method [3] Room Air Oxygen Delivery Method [2] Room Air Oxygen Delivery Method [1 ( Room Air Initial Baseline)] Oxygen Delivery Method Room Air Weight: 194 lb Body Mass Index (BMI) 27.8 Intake & Output: Intake and Output for Last 24 Hours 09/26/21 09/27/21 09/28/21 23:59 23:59 23:59 Intake Total 340 / 340 749.75 / 749.75 Output Total 7150 / 7150 1550 / 1550 350 / 350 Balance -6810 / -6810 -800.25 / -800.25 -350 / -350 Lab / Micro Data Result Diagrams: 09/28/21 05:35 09/28/21 05:35 Labs: Laboratory Results - last 24 hr 09/27/21 16:43: POC Glucose 131 H 09/27/21 21:02: POC Glucose 197 H 09/28/21 05:35: Sodium 137, Potassium 3.3 L, Chloride 104, Carbon Dioxide 19.0 L, Anion Gap 14, BUN 88 H, Creatinine 6.13 H, Estim Creat Clear Calc 9.10, Est GFR (MDRD) Af Amer 11 L, Est GFR (MDRD) Non-Af 9 L, BUN/Creatinine Ratio 14.4, Glucose 137 H, Calcium 8.0 L, Phosphorus 6.8 H, Iron 42 L, TIBC 159 L, Iron Saturation 26.4, Ferritin 226, Albumin 2.3 L 09/28/21 05:35: WBC 6.6, RBC 2.87 L, Hgb 9.3 L, Hct 28.5 L, MCV 99.3 H, MCH 32.4 H, MCHC 32.6, RDW Std Deviation 51.8 H, RDW Coeff of Jewels 14.2, Plt Count 144 L, MPV 9.7, Immature Gran % (Auto) 0.500, Neut % (Auto) 60.3, Lymph % (Auto) 20.6, [place] % (Auto) 13.4 H, Eos % (Auto) 5.0, Baso % (Auto) 0.2, Absolute Neuts (auto) 4.0, Absolute Lymphs (auto) 1.35, Nucleated RBC % 0 09/28/21 06:18: POC Glucose 151 H Radiography Diagnostic Testing: Radiology Impression Chest X-Ray 09/27/21 09:24 IMPRESSION: Slightly prominent markings in right perihilar right vertebral couldn''t be chronic. Mild infiltrates is difficult to exclude. Status post permacath placement. Electronically Signed: Tristen Carson MD at 10:20 EDT , Physical Exam Const oriented x3 Neck Neck Narrative: Tunneled right hemodialysis catheter appears appropriate with no drainage to postoperative dressing beneath 3000 drape. There is no evidence of underlying swelling or hematoma formation. Patient has no tenderness with exam. Assessment & Plan Assessment/Plan (1) Acute renal failure: PLAN: Postoperative day 1 from right tunneled hemodialysis catheter insertion. Catheter appears appropriate today on exam. It has not been used just yet, and patient is unsure if it is likely to be used before his discharge to a correction facility. He states he has a number of questions related to his disposition and requests a conversation with case management. At this time, surgery will sign off but remain available for any questions/ concerns should they arise. Thank you for this consult. Charges/Coding Visit Charges Inpatient E&M: 92953 Subs Hosp L2
[2021-09-28 08:39] LABS: PTHIN 417.7 pg/mL (18.4-80.1)
[2021-09-28] MEDS: Lactulose 20 GM/30 ML UDC 10 GM PO ×2 (08:46→21:16)
[2021-09-28] MEDS: Calcium Acetate 667 MG Capsule PO ×3 (08:46→16:07)
[2021-09-28] MEDS: Folic Acid/Vitamin B Comp W-C 1 Capsule 1 CAP PO (08:46)
[2021-09-28] MEDS: Midodrine HCl 5 MG Tablet 10 MG PO ×3 (08:46→14:00)
[2021-09-28] MEDS: Pantoprazole Sodium 20 MG Tablet PO (08:47)
[2021-09-28] MEDS: Tamsulosin HCl 0.4 MG Capsule PO ×2 (08:48→21:17)
[2021-09-28] MEDS: Furosemide 100 MG/10 ML Vial 80 MG IV (08:49)
--- NOTE | 2021-09-28 09:01 | WOUNDNOTE ---
wound photo: right hand
--- NOTE | 2021-09-28 09:01 | WOUNDNOTE ---
wound photo: right shoulder
--- NOTE | 2021-09-28 09:02 | WOUNDNOTE ---
wound photo: left hand
--- NOTE | 2021-09-28 09:02 | WOUNDNOTE ---
wound photo: left hand
--- NOTE | 2021-09-28 10:44 | PN.HOSP_ITS ---
Subjective Subjective Doing well today, frustrated about having to go to a [facility] and he seems to be changing his mind. I discussed with him that he needs to go to a [facility] for physical therapy as well as dialysis because his other option would just be hospice Objective Data Objective Data Vital Signs: Vital Signs Temp Pulse Resp BP Pulse Ox 98 F 96 18 98/50 L 95 09/28/21 09:05 09/28/21 09:14 09/28/21 09:05 09/28/21 09:05 09/28/21 09:05 Oxygen Delivery Method [3] Room Air Oxygen Delivery Method [2] Room Air Oxygen Delivery Method [1 ( Room Air Initial Baseline)] Oxygen Delivery Method Room Air Weight: 194 lb Body Mass Index (BMI) 27.8 Intake & Output: Intake and Output for Last 24 Hours 09/27/21 09/28/21 09/29/21 03:59 03:59 03:59 Intake Total 340 / 340 749.75 / 749.75 Output Total 7150 / 7150 1550 / 1550 350 / 350 Balance -6810 / -6810 -800.25 / -800.25 -350 / -350 Lab / Micro Data Result Diagrams: 09/28/21 05:35 09/28/21 05:35 Labs: Laboratory Results - last 24 hr 09/27/21 16:43: POC Glucose 131 H 09/27/21 21:02: POC Glucose 197 H 09/28/21 05:35: Sodium 137, Potassium 3.3 L, Chloride 104, Carbon Dioxide 19.0 L , Anion Gap 14, BUN 88 H, Creatinine 6.13 H, Estim Creat Clear Calc 9.10, Est GFR (MDRD) Af Amer 11 L, Est GFR (MDRD) Non-Af 9 L, BUN/Creatinine Ratio 14.4, Glucose 137 H, Calcium 8.0 L, Phosphorus 6.8 H, Iron 42 L, TIBC 159 L, Iron Saturation 26.4, Ferritin 226, Albumin 2.3 L 09/28/21 05:35: PTH Intact 417.7 H 09/28/21 05:35: WBC 6.6, RBC 2.87 L, Hgb 9.3 L, Hct 28.5 L, MCV 99.3 H, MCH 32.4 H, MCHC 32.6, RDW Std Deviation 51.8 H, RDW Coeff of Jewels 14.2, Plt Count 144 L, MPV 9.7, Immature Gran % (Auto) 0.500, Neut % (Auto) 60.3, Lymph % (Auto) 20.6, [place] % (Auto) 13.4 H, Eos % (Auto) 5.0, Baso % (Auto) 0.2, Absolute Neuts (auto) 4.0, Absolute Lymphs (auto) 1.35, Nucleated RBC % 0 09/28/21 06:18: POC Glucose 151 H Physical Exam Narrative Const alert, oriented x3 and no apparent distress General Appearance: cooperative HEENT normocephalic and moist oral mucous membranes Eyes PERRL, EOMs intact bilaterally and conjunctivae normal Neck supple and no JVD Resp normal respiratory effort, no retractions and no use of accessory muscles Auscultation: diminished lung sounds; Negative for crackles, rales, rhonchi or wheezes Cardio regular rate, regular rhythm, S1 normal heart sound, S2 normal heart sound and no murmurs GI soft to palpation, non-tender, distended consistent with ascites Extremity no clubbing, cyanosis or edema Skin Skin Narrative: Multiple lacerations and abrasions over his face and right upper extremity.? He has significant bruising and swelling over his left upper extremity from a fall previously.? He says it is painful but sensation is intact. Neuro no focal motor deficits and no sensory deficits noted Psych affect normal Appearance: appropriate Assessment & Plan Assessment/Plan (1) Acute renal failure: (2) Coronary artery disease: (3) Diabetes: (4) Essential (primary) hypertension: (5) Depression: PLAN: Plan 1. Acute renal failure/weakness and debility ? Unsure as to the etiology, he is on Bumex at home as well as Coreg ? We will continue with gentle IV hydration and nephrology was consulted for evaluation and assistance in management ? We will consult wound care to help with the use will multiple superficial w ounds. ? His left upper extremity is very swollen but does not appear to be infected at this time will allow for gradual resolution of the swelling if it does get any worse and he loses sensation will need emergency transfer to tertiary care center that has hand surgery. At this time he still has sensation though mobility is limited secondary to the swelling ? PT/OT for evaluation and placement in a SNF ? Plan for dialysis today we will have to obtain pre-CERT for different SNF placement secondary to his need for dialysis 2. 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 Continue with his PPI ? Appreciate gastroenterology's assistance ? Paracentesis withdrew about 5 L ? Has accumulated little bit more fluid in his abdomen already ? Continue with midodrine, lactulose, Xifaxan ? AST and ALT are normal, alk phos is elevated 3. CAD status post CABG/HTN/chronic systolic CHF ? Blood pressures are stable, will continue with his home Coreg ? Nephrology is ordered IV Lasix ? Continue with Lipitor 4. DM2 ? Hold his home medications ? Placed on a sliding scale insulin ? Accu-Cheks AC at bedtime 5. GERD ? Stable ? Continue with PPI 6. BPH ? Stable ? Continue with Flomax DVT: SCD's Charges/Coding Visit Charges Inpatient E&M: 55854 Subs Hosp L2
[2021-09-28] MEDS: Insulin Lispro 100 UNIT/ML INSULN.PEN SC ×3 (11:21→21:17)
[2021-09-28 11:30] LABS: Bedside Glucose 235 mg/dL (74-106)
--- NOTE | 2021-09-28 11:34 | CASEMGMT ---
Addendum entered by Nidhi Schulte 09/28/21 16:07: Social Work SW spoke with Audelia at [facility] and although several options were tried, [facility] does not have a way to transport pt to dialysis. SW spoike with pt's and dgt and they are unable to transport pt as dgts work and pt does not feel she can get pt in and out of her van safely. SW spoke with pt and family regarding other options including other area SNFs that may be able to transport pt to dialysis. Pt uncertain which facility to choose. SW will reach out to in network facilities to see if they can transport to dialysis as this is a limiting factor in SNF choices. Pt and family agreeable to plan and SW will continue to follow for d/c planning. VM left with [facility], [place] and Roslyn at [facility]. Will await return call on availability to transport to dialysis. GATITO Palacios Original Note: Social Work SW met with pt, pt's Tawnya and daughter Doris. Pt was scheduled to go to TCU however, pt now will require dialysis and TCU does not accept dialysis patients. Pt and family updated and they are aware of this. Pt stating that pt does need to go to a SNF for skilled therapy as she is not able to care for him at home. After discussion with pt and family and presenting SNF options (list given previously), pt and family are agreeable to [facility] and would like to use the [facility] in [place]. Phone call to Doris at [facility] and they do have beds available. SW informed that pt will need dialysis and would prefer [facility]. Doris is uncertain if they can transport as it will depend on the chair time which has not been established yet. Referral to be sent to [facility]. RNCM updated that pt is requesting to use [facility] [place]. GATITO Palacios
--- NOTE | 2021-09-28 12:02 | CASEMGMT ---
Discharge Chief Radiology Referral was faxed over to Johnny Olmos Discharge Chief Radiology
--- NOTE | 2021-09-28 12:20 | CASEMGMT ---
RN SHAVON notified from SW that pt is choosing to go to [facility] and would like to have dialysis at [facility]. TC to [facility] admissions and gave referral over the phone to Maria Elena. Faxed records to at this time. [facility] has 9 open chairs with a chair time approximated from 1:15-3:15pm. Will await flow sheet from dialysis today then forward to [facility]. MARIAH updated.
--- NOTE | 2021-09-28 12:36 | PN_ITS ---
Subjective Subjective Patient says that he wants to go home and is not sure he wants to go to the senior living. He says that his abdomen is becoming more distended. He still is not making much if any urine. He has had a couple bowel movements. Objective Data Objective Data Vital Signs: Vital Signs Temp Pulse Resp BP Pulse Ox 98.1 F 88 18 123/64 H 100 09/28/21 11:29 09/28/21 11:29 09/28/21 11:29 09/28/21 11:29 09/28/21 11:29 Oxygen Delivery Method [3] Room Air Oxygen Delivery Method [2] Room Air Oxygen Delivery Method [1 ( Room Air Initial Baseline)] Oxygen Delivery Method Room Air Weight: 194 lb Body Mass Index (BMI) 27.8 Intake & Output: Intake and Output for Last 24 Hours 09/26/21 09/27/21 09/28/21 23:59 23:59 23:59 Intake Total 340 / 340 749.75 / 749.75 250 / 250 Output Total 7150 / 7150 1550 / 1550 550 / 550 Balance -6810 / -6810 -800.25 / -800.25 -300 / -300 Lab / Micro Data Result Diagrams: 09/28/21 05:35 09/28/21 05:35 Labs: Laboratory Results - last 24 hr 09/27/21 16:43: POC Glucose 131 H 09/27/21 21:02: POC Glucose 197 H 09/28/21 05:35: Sodium 137, Potassium 3.3 L, Chloride 104, Carbon Dioxide 19.0 L , Anion Gap 14, BUN 88 H, Creatinine 6.13 H, Estim Creat Clear Calc 9.10, Est GFR (MDRD) Af Amer 11 L, Est GFR (MDRD) Non-Af 9 L, BUN/Creatinine Ratio 14.4, Glucose 137 H, Calcium 8.0 L, Phosphorus 6.8 H, Iron 42 L, TIBC 159 L, Iron Saturation 26.4, Ferritin 226, Albumin 2.3 L 09/28/21 05:35: PTH Intact 417.7 H 09/28/21 05:35: WBC 6.6, RBC 2.87 L, Hgb 9.3 L, Hct 28.5 L, MCV 99.3 H, MCH 32.4 H, MCHC 32.6, RDW Std Deviation 51.8 H, RDW Coeff of Jewels 14.2, Plt Count 144 L, MPV 9.7, Immature Gran % (Auto) 0.500, Neut % (Auto) 60.3, Lymph % (Auto) 20.6, [place] % (Auto) 13.4 H, Eos % (Auto) 5.0, Baso % (Auto) 0.2, Absolute Neuts (auto) 4.0, Absolute Lymphs (auto) 1.35, Nucleated RBC % 0 09/28/21 06:18: POC Glucose 151 H 09/28/21 11:19: POC Glucose 235 H Physical Exam Narrative Const alert, oriented x3 and no apparent distress General Appearance: cooperative HEENT normocephalic and moist oral mucous membranes Eyes PERRL, EOMs intact bilaterally and conjunctivae normal Neck supple and no JVD Resp normal respiratory effort, no retractions and no use of accessory muscles Auscultation: diminished lung sounds; Negative for crackles, rales, rhonchi or wheezes Cardio regular rate, regular rhythm, S1 normal heart sound, S2 normal heart sound and no murmurs GI soft to palpation, non-tender, distended consistent with ascites Extremity no clubbing, cyanosis or edema Skin Skin Narrative: Multiple lacerations and abrasions over his face and right upper extremity.? He has significant bruising and swelling over his left upper extremity from a fall previously.? He says it is painful but sensation is intact. Neuro no focal motor deficits and no sensory deficits noted Psych affect normal Appearance: appropriate Assessment & Plan Assessment/Plan (1) Ascites: PLAN: He is having recurrent ascites secondary to portal hypertension and cirrhosis that cannot be removed with pharmacological treatment. He will need to undergo another paracentesis. At that time we can perform cytology. Awaiting tumor markers. 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 At this time he is decompensated with ascites and renal failure. If he does not go to hospitalist and he will need an upper endoscopy to screen for esophageal varices. (3) Acute renal failure: PLAN: His kidney function is not improving with medical therapy resulting in the need for dialysis. This carries a very poor prognosis regarding his liver disease. Charges/Coding Visit Charges Inpatient E&M: 35077 Subs Hosp L3
[2021-09-28 13:07] LABS: Albumin 2.4 g/dL (2.9-4.4); Alpha-1-Globulins 0.3 g/dL (0.0-0.4); Alpha-2-Globulins 0.5 g/dL (0.4-1.0); Gamma Globulin 0.7 g/dL (0.4-1.8); Immunoglobulin A 293 mg/dL (61-437); Immunoglobulin G 784 mg/dL (603-1613); Immunoglobulin M 42 mg/dL (15-143); PROEL- TOTAL PROTEIN 4.4 g/dL (6.0-8.5)
--- NOTE | 2021-09-28 13:26 | PN.RENAL_ITS ---
Subjective Subjective resting comfortably, seen at start of dialysis. Spoke with pt spouse and dtr at bedside. Arranging dialysis and ECF placement closer to home at [place] Objective Data Objective Data Vital Signs: Vital Signs Temp Pulse Resp BP Pulse Ox 98.1 F 88 18 123/64 H 100 09/28/21 11:29 09/28/21 11:29 09/28/21 11:29 09/28/21 11:29 09/28/21 11:29 Oxygen Delivery Method [3] Room Air Oxygen Delivery Method [2] Room Air Oxygen Delivery Method [1 ( Room Air Initial Baseline)] Oxygen Delivery Method Room Air Weight: 87.997 kg Body Mass Index (BMI) 27.8 Intake & Output: Intake and Output for Last 24 Hours 09/26/21 09/27/21 09/28/21 23:59 23:59 23:59 Intake Total 340 / 340 749.75 / 749.75 250 / 250 Output Total 7150 / 7150 1550 / 1550 550 / 550 Balance -6810 / -6810 -800.25 / -800.25 -300 / -300 Lab / Micro Data Result Diagrams: 09/28/21 05:35 09/28/21 05:35 Labs: Laboratory Results - last 24 hr 09/27/21 16:43: POC Glucose 131 H 09/27/21 21:02: POC Glucose 197 H 09/28/21 05:35: Sodium 137, Potassium 3.3 L, Chloride 104, Carbon Dioxide 19.0 L , Anion Gap 14, BUN 88 H, Creatinine 6.13 H, Estim Creat Clear Calc 9.10, Est GFR (MDRD) Af Amer 11 L, Est GFR (MDRD) Non-Af 9 L, BUN/Creatinine Ratio 14.4, Glucose 137 H, Calcium 8.0 L, Phosphorus 6.8 H, Iron 42 L, TIBC 159 L, Iron Saturation 26.4, Ferritin 226, Albumin 2.3 L 09/28/21 05:35: PTH Intact 417.7 H 09/28/21 05:35: WBC 6.6, RBC 2.87 L, Hgb 9.3 L, Hct 28.5 L, MCV 99.3 H, MCH 32.4 H, MCHC 32.6, RDW Std Deviation 51.8 H, RDW Coeff of Jewels 14.2, Plt Count 144 L, MPV 9.7, Immature Gran % (Auto) 0.500, Neut % (Auto) 60.3, Lymph % (Auto) 20.6, [place] % (Auto) 13.4 H, Eos % (Auto) 5.0, Baso % (Auto) 0.2, Absolute Neuts (auto) 4.0, Absolute Lymphs (auto) 1.35, Nucleated RBC % 0 09/28/21 06:18: POC Glucose 151 H 09/28/21 11:19: POC Glucose 235 H Physical Exam Const alert and oriented x3 Resp Resp Narrative: faint wheeze Effort and Inspection: Negative for respiratory distress Cardio regular rate Cardio Narrative: paced GI non-tender GI Narrative: less distended, ascites, soft Auscultation: normoactive bowel sounds Extremity General Extremity: edema bilateral Assessment & Plan Assessment/Plan (1) Acute renal failure: PLAN: Creatinine 6.1 today, dialysis #1 today. Arrange dialysis next tomorrow. Arrange outpt dialysis MWF in [facility] (2) Coronary artery disease: PLAN: s/p CABG, defibrillator, CMP EF 35% (3) Essential (primary) hypertension: PLAN: BP stable (4) Ascites: PLAN: s/p paracentesis, GI following (5) Cirrhosis: PLAN: GI following (6) Hyperphosphatemia: PLAN: started binders (7) Anasarca: PLAN: Remove fluid on dialysis. (8) DM2 (diabetes mellitus, type 2): PLAN: stable (9) Anemia of chronic disease: PLAN: iv iron load
--- NOTE | 2021-09-28 14:28 | CASEMGMT ---
Discharge Pump Room Operator Called to follow up on referral. Facility has been communicating with MARIAH Terrell. I let them know to continue contacting MARIAH Terrell. Celia Olmos Discharge Pump Room Operator
--- NOTE | 2021-09-28 15:23 | CHAPLAIN ---
Type of Pastoral Visit ___ Initial Visit _x__ Follow-up Visit ___ On-call Visit ___ General Patient Visit ___ Spiritual Assessment ___ Family Conference ___ Bereavement ___ Rapid Response ___ Code Blue ___ Other (describe below) Pastoral Care Referral From _x__ Patient _x__ Family ___ Nurse ___ Physician ___ Field Applications Specialist ___ [employer]er ___ Other (describe below) Sacrament/Intervention _x__ Active listening ___ Anointing ___ Presybeterian ___ Bereavement ___ Communion ___ Wilda exploration ___ ___ Life review ___ Prayer ___ Reconciliation ___ Sacrament of Sick _x__ Supportive presence ___ Wedding ___ Other (describe below) Pastoral Comments patient is receiving his first dialysis treatment and states I never understood what this was about until today; pt reports feeling fine and is accepting of treatment; spouse and daughter are in room; spouse admits that it is quiet at home and this is different experience for both of them; pt shows humor as he makes comments; pt is more at ease today than previously
[2021-09-28 15:40] LABS: Carbohydrate AG 19-9 27 U/mL (0-35); Carcinoembryonic Antigen 3.1 ng/mL (0.0-4.7)
[2021-09-28 15:41] LABS: AFP, Tumor Marker < 0.9 ng/mL (0.0-6.4)
--- NOTE | 2021-09-28 15:50 | DIALYSIS ---
First HD treatment x 2 hours complete. Ran on 3k bath. UF of 1000ml. Used right chest wall dialysis catheter. Lumens closed with heparin per fill volume. Caps placed. Dressing is dry and intact. See tx sheet for more details. Report was given to JENY Matthew.
[2021-09-28] MEDS: Heparin 10,000 UNITS/10 ML Vial 3200 UNITS IV (15:57)
[2021-09-28 16:26] LABS: Bedside Glucose 172 mg/dL (74-106)
[2021-09-28] MEDS: Atorvastatin Calcium 40 MG Tablet PO (21:17)
[2021-09-28 21:31] LABS: Bedside Glucose 206 mg/dL (74-106)
[2021-09-28] MEDS: MELATONIN 10 MG TABLET 5 MG PO (21:46)
[2021-09-29] VITALS (11 sets, daily range): BP systolic 96–135; BP diastolic 51–64; PULSE 72–120; RESP 16–18; TEMP 36.3–37.1; O2SAT 96–100
[2021-09-29 06:37] LABS: Albumin, Serum 2.1 g/dL (3.2-5.0); BUN 71 mg/dL (7-18); BUN/Creat Ratio 13.4 RATIO (10-20); Calcium,Total 7.8 mg/dL (8.5-10.1); Chloride 105 mmol/L (98-107); EST Glomerular Filtration Rate 11 mL/min (>60); Est Glom Filt Rate - Afr Amer 13 mL/min (>60); Estimated Creatinine Clearance 10.52 ml/min; Glucose 178 mg/dL (74-106); Phosphorus 5.4 mg/dL (2.5-4.9); Potassium 3.1 mmol/L (3.5-5.1); Sodium Level 139 mmol/L (136-145)
[2021-09-29 06:50] LABS: Bedside Glucose 155 mg/dL (74-106)
[2021-09-29] MEDS: Folic Acid/Vitamin B Comp W-C 1 Capsule 1 CAP PO (08:05)
[2021-09-29] MEDS: Tamsulosin HCl 0.4 MG Capsule PO ×2 (08:05→21:28)
[2021-09-29] MEDS: Midodrine HCl 5 MG Tablet 10 MG PO ×3 (08:05→15:47)
[2021-09-29] MEDS: Pantoprazole Sodium 20 MG Tablet PO (08:05)
[2021-09-29] MEDS: Calcium Acetate 667 MG Capsule PO ×3 (08:06→15:47)
--- NOTE | 2021-09-29 09:53 | PN.HOSP_ITS ---
Subjective Subjective Doing well today, tolerated dialysis yesterday. Objective Data Objective Data Vital Signs: Vital Signs Temp Pulse Resp BP Pulse Ox 97.4 F L 120 H 16 106/55 L 100 09/29/21 08:36 09/29/21 08:49 09/29/21 08:36 09/29/21 08:36 09/29/21 08:36 Oxygen Delivery Method [3] Room Air Oxygen Delivery Method [2] Room Air Oxygen Delivery Method [1 ( Room Air Initial Baseline)] Oxygen Delivery Method Room Air Weight: 194 lb Body Mass Index (BMI) 27.8 Intake & Output: Intake and Output for Last 24 Hours 09/28/21 09/29/21 09/30/21 03:59 03:59 03:59 Intake Total 749.75 / 749.75 650 / 650 50 / 50 Output Total 1550 / 1550 900 / 900 100 / 100 Balance -800.25 / -800.25 -250 / -250 -50 / -50 Lab / Micro Data Result Diagrams: 09/28/21 05:35 09/29/21 05:35 Labs: Laboratory Results - last 24 hr 09/25/21 03:05: Total Protein (PEP) 4.4 L, Globulin 2.0 L, Tumor Marker AFP < 0.9, Carcinoembryonic Ag 3.1, CA 19-9 Antigen 27, IgG 784, IgA 293, IgM 42, Immunofixation Screen Comment, Albumin (FAN) 2.4 L, Albumin/Globulin (FAN) 1.3, Alvzu-5-Acbfryuzq FAN 0.3, Xfizl-6-Tgkmfexgf FAN 0.5, Beta-Globulins (FAN) 0.6 L , Gamma Globulins (FAN) 0.7, FAN M-Josh , FAN Comments Comment 09/28/21 11:19: POC Glucose 235 H 09/28/21 15:59: POC Glucose 172 H 09/28/21 21:16: POC Glucose 206 H 09/29/21 05:35: Sodium 139, Potassium 3.1 L, Chloride 105, Carbon Dioxide 22.0, BUN 71 H, Creatinine 5.30 H, Estim Creat Clear Calc 10.52, Est GFR (MDRD) Af Amer 13 L, Est GFR (MDRD) Non-Af 11 L, BUN/Creatinine Ratio 13.4, Glucose 178 H, Calcium 7.8 L, Phosphorus 5.4 H, Albumin 2.1 L 09/29/21 06:44: POC Glucose 155 H Physical Exam Narrative Const alert, oriented x3 and no apparent distress General Appearance: cooperative HEENT normocephalic and moist oral mucous membranes Eyes PERRL, EOMs intact bilaterally and conjunctivae normal Neck supple and no JVD Resp normal respiratory effort, no retractions and no use of accessory muscles Auscultation: diminished lung sounds; Negative for crackles, rales, rhonchi or wheezes Cardio regular rate, regular rhythm, S1 normal heart sound, S2 normal heart sound and no murmurs GI soft to palpation, non-tender, distended consistent with ascites Extremity no clubbing, cyanosis or edema Skin Skin Narrative: Multiple lacerations and abrasions over his face and right upper extremity.? He has significant bruising and swelling over his left upper extremity from a fall previously.? He says it is painful but sensation is intact. Neuro no focal motor deficits and no sensory deficits noted Psych affect normal Appearance: appropriate Assessment & Plan Assessment/Plan (1) Acute renal failure: (2) Coronary artery disease: (3) Diabetes: (4) Essential (primary) hypertension: (5) Depression: PLAN: Plan 1. Acute renal failure/weakness and debility ? Unsure as to the etiology, he is on Bumex at home as well as Coreg ? We will continue with gentle IV hydration and nephrology was consulted for evaluation and assistance in management ? We will consult wound care to help with the use will multiple superficial wounds. ? His left upper extremity is very swollen but does not appear to be infected at this time will allow for gradual resolution of the swelling if it does get any worse and he loses sensation will need emergency transfer to tertiary care center that has hand surgery. Appears to be improving ? PT/OT for evaluation and placement in a SNF ? Plan for dialysis today we will have to obtain pre-CERT for different SNF placement secondary to his need for dialysis 2. 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 Continue with his PPI ? Appreciate gastroenterology's assistance ? Paracentesis withdrew about 5 L, cytology is pending preliminarily does not appear to be malignancy ? Has accumulated little bit more fluid in his abdomen already ? Continue with midodrine, lactulose, Xifaxan ? AST and ALT are normal, alk phos is elevated 3. CAD status post CABG/HTN/chronic systolic CHF ? Blood pressures are stable, will continue with his home Coreg ? Nephrology is ordered IV Lasix ? Continue with Lipitor 4. DM2 ? Hold his home medications ? Placed on a sliding scale insulin ? Accu-Cheks AC at bedtime 5. GERD ? Stable ? Continue with PPI 6. BPH ? Stable ? Continue with Flomax DVT: SCD's Charges/Coding Visit Charges Inpatient E&M: 57529 Subs Hosp L2
--- NOTE | 2021-09-29 10:30 | PN.RENAL_ITS ---
Subjective Subjective seen on dialysis. BP low requiring midodrine. UF 1L yesterday. Will attempt 2L today as tolerated. Still with anasarca, ascite. Denies SOB, nausea or vomiting. Waiting on disposition Objective Data Objective Data Vital Signs: Vital Signs Temp Pulse Resp BP Pulse Ox 97.4 F L 120 H 16 106/55 L 100 09/29/21 08:36 09/29/21 08:49 09/29/21 08:36 09/29/21 08:36 09/29/21 08:36 Oxygen Delivery Method [3] Room Air Oxygen Delivery Method [2] Room Air Oxygen Delivery Method [1 ( Room Air Initial Baseline)] Oxygen Delivery Method Room Air Weight: 87.997 kg Body Mass Index (BMI) 27.8 Intake & Output: Intake and Output for Last 24 Hours 09/27/21 09/28/21 09/29/21 23:59 23:59 23:59 Intake Total 749.75 / 749.75 650 / 650 50 / 50 Output Total 1550 / 1550 900 / 900 100 / 100 Balance -800.25 / -800.25 -250 / -250 -50 / -50 Lab / Micro Data Result Diagrams: 09/28/21 05:35 09/29/21 05:35 Labs: Laboratory Results - last 24 hr 09/25/21 03:05: Total Protein (PEP) 4.4 L, Globulin 2.0 L, Tumor Marker AFP < 0.9, Carcinoembryonic Ag 3.1, CA 19-9 Antigen 27, IgG 784, IgA 293, IgM 42, Immunofixation Screen Comment, Albumin (FAN) 2.4 L, Albumin/Globulin (FAN) 1.3, Mekhl-4-Iaxmrttgr FAN 0.3, Dplaq-1-Utxzyhftq FAN 0.5, Beta-Globulins (FAN) 0.6 L , Gamma Globulins (FAN) 0.7, FAN M-Josh , FAN Comments Comment 09/28/21 11:19: POC Glucose 235 H 09/28/21 15:59: POC Glucose 172 H 09/28/21 21:16: POC Glucose 206 H 09/29/21 05:35: Sodium 139, Potassium 3.1 L, Chloride 105, Carbon Dioxide 22.0, BUN 71 H, Creatinine 5.30 H, Estim Creat Clear Calc 10.52, Est GFR (MDRD) Af Amer 13 L, Est GFR (MDRD) Non-Af 11 L, BUN/Creatinine Ratio 13.4, Glucose 178 H, Calcium 7.8 L, Phosphorus 5.4 H, Albumin 2.1 L 09/29/21 06:44: POC Glucose 155 H Physical Exam Const alert and oriented x3 Cardio Cardio Narrative: paced GI Auscultation: normoactive bowel sounds Palpation: ascites Extremity General Extremity: edema bilateral Assessment & Plan Assessment/Plan (1) Acute renal failure: PLAN: dialysis #2 today. Arrange dialysis next tomorrow. Arrange outpt dialysis MWF in [place] (2) Coronary artery disease: PLAN: s/p CABG, defibrillator, CMP EF 35% (3) Essential (primary) hypertension: PLAN: BP stable (4) Ascites: PLAN: s/p paracentesis, GI following (5) Cirrhosis: PLAN: GI following (6) Hyperphosphatemia: PLAN: started binders (7) Anasarca: PLAN: Remove fluid on dialysis. (8) DM2 (diabetes mellitus, type 2): PLAN: stable (9) Anemia of chronic disease: PLAN: iv iron load
--- NOTE | 2021-09-29 10:51 | CASEMGMT ---
Addendum entered by Nidhi Schulte 09/29/21 14:10: SW met with pt, pt and pt dgt (not liliana) regarding discharge plan. Dgt Liliana has been in contact with them and family has decided on SNF choices. 1. [facility] 2. [facility] 3. [facility]. Celia, discharge estate planning counselor, notified and will start referrals. GATITO Palacios Original Note: Social Work SW spoke with [facility], [facility] and [facility]. All have beds available and would be able to transport pt to Dialysis in [place]. SW met with pt and informed of this. Pt stating he does not know anything about the facilities and therefore cannot choose. SW offered to call pt dgt for input and pt is agreeable to this. Phone call to dgt Liliana and informed of above. Liliana will be in contact with pt and then notify SW on choice of facilities. SW will await return call. GATITO Palacios
[2021-09-29 11:16] LABS: Bedside Glucose 138 mg/dL (74-106)
--- NOTE | 2021-09-29 11:50 | CASEMGMT ---
JENY SANDS updated that patient will need to setup for outpatient HD in [place] as SW is seeking SNF in [place]. JENY SANDS called [facility] admissions and spoke with Jany. Requested HD center be change to [place] [facility]. Rodolfo requested HD flow sheets and CXR. JENY SANDS faxed updated clinicals. SHAVON will continue to follow this patient and plan for a safe discharge.
--- NOTE | 2021-09-29 12:39 | DIALYSIS ---
Hemodialysis completed, 3 hours on a 4 K. Iron load started. UF removed was 1400. Ending BP 96/62 96. Patient tolerated well, report given to Tiff FERMIN.
--- NOTE | 2021-09-29 13:16 | CASEMGMT ---
Discharge Internet Marketing Manager Celia Woods/[facility] Coordinator Of [facility] Services faxed referral to [facility]. Will follow up. Celia Olmos Discharge Internet Marketing Manager
[2021-09-29] MEDS: Lactulose 20 GM/30 ML UDC 10 GM PO ×2 (14:06→21:28)
[2021-09-29] MEDS: Insulin Lispro 100 UNIT/ML INSULN.PEN SC ×2 (15:47→21:27)
[2021-09-29 15:56] LABS: Bedside Glucose 266 mg/dL (74-106)
[2021-09-29] MEDS: Atorvastatin Calcium 40 MG Tablet PO (21:27)
[2021-09-29 21:36] LABS: Bedside Glucose 166 mg/dL (74-106)
[2021-09-30] VITALS (8 sets, daily range): BP systolic 110–130; BP diastolic 53–62; PULSE 81–126; RESP 12–16; TEMP 36.4–37.2; O2SAT 95–96
[2021-09-30 05:26] LABS: Absolute Lymphocyte Count 2.13 X10^3/uL (0.83-4.51); Absolute Neutrophil Count 4.9 X10^3/uL (2.0-7.7); Basophil# 0.02 X10^3/uL; Basophil% 0.2 % (0-1); Eosinophil# 0.25 X10^3/uL; Eosinophils% 2.9 % (0-5); Hematocrit 30.2 % (40-54); Hemoglobin 9.9 g/dL (13.0-16.5); Lymphocyte # 2.13 X10^3/ul (0.83-4.51); Mean Corp Hgb Conc 32.8 g/dL (32-36); Mean Corpuscular Hgb 32.2 pg (27.0-32.0); Mean Corpuscular Volume 98.4 fL (80-94); Mean Platelet Vol. 10.3 fl (6.2-12.0); Monocyte# 1.13 X10^3/uL; Monocyte% 13.3 % (0-10); NRBC Flagged by Analyzer 0 % (0-5); Neutrophil # 4.94 X10^3/uL (2.7-7.7); Neutrophil % 58.1 % (47-70); Platelet Count 123 K/mm3 (150-450); RBC Distribution Width CV 14.7 % (11.6-14.6); RBC Distribution Width SD 53.1 fl (35.1-43.9); Red Blood Count 3.07 M/mm3 (4.6-6.2); White Blood Count 8.5 K/mm3 (4.4-11.0)
[2021-09-30 05:54] LABS: Anion Gap 11 (5-15); BUN 51 mg/dL (7-18); BUN/Creat Ratio 12.2 RATIO (10-20); Calcium,Total 7.9 mg/dL (8.5-10.1); Chloride 104 mmol/L (98-107); Creatinine, Serum 4.18 mg/dL (0.70-1.30); EST Glomerular Filtration Rate 15 mL/min (>60); Est Glom Filt Rate - Afr Amer 18 mL/min (>60); Estimated Creatinine Clearance 13.34 ml/min; Glucose 191 mg/dL (74-106); Potassium 3.7 mmol/L (3.5-5.1); Sodium Level 139 mmol/L (136-145)
[2021-09-30] MEDS: Insulin Lispro 100 UNIT/ML INSULN.PEN SC ×4 (06:41→21:59)
[2021-09-30 06:50] LABS: Bedside Glucose 190 mg/dL (74-106)
[2021-09-30 07:36] LABS: Cytology, Body Fluid / CSF SEE PATHOLOGY REPORT
[2021-09-30] MEDS: Midodrine HCl 5 MG Tablet 10 MG PO ×2 (07:44→08:54)
[2021-09-30] MEDS: Calcium Acetate 667 MG Capsule PO ×3 (07:44→16:21)
--- NOTE | 2021-09-30 08:51 | PCM.PN.REN ---
Subjective Subjective seen on dialysis, anorexia. No nausea, vomiting. Edema improving Objective Data Objective Data Vital Signs: Vital Signs Temp Pulse Resp BP Pulse Ox 99.0 F 94 12 130/62 H 96 09/30/21 02:25 09/30/21 07:00 09/30/21 02:25 09/30/21 02:25 09/30/21 02:25 Oxygen Delivery Method [3] Room Air Oxygen Delivery Method [2] Room Air Oxygen Delivery Method [1 ( Room Air Initial Baseline)] Oxygen Delivery Method Room Air Weight: 87.997 kg Body Mass Index (BMI) 27.8 Intake & Output: Intake and Output for Last 24 Hours 09/28/21 09/29/21 09/30/21 23:59 23:59 23:59 Intake Total 650 / 650 822 / 822 600 / 600 Output Total 900 / 900 1700 / 1700 100 / 100 Balance -250 / -250 -878 / -878 500 / 500 Lab / Micro Data Result Diagrams: 09/30/21 04:54 09/30/21 04:54 Labs: Laboratory Results - last 24 hr 09/25/21 08:51: Miscellaneous Cytology SEE PATHOLOGY REPORT 09/29/21 11:11: POC Glucose 138 H 09/29/21 15:45: POC Glucose 266 H 09/29/21 21:25: POC Glucose 166 H 09/30/21 04:54: WBC 8.5, RBC 3.07 L, Hgb 9.9 L, Hct 30.2 L, MCV 98.4 H, MCH 32.2 H, MCHC 32.8, RDW Std Deviation 53.1 H, RDW Coeff of Jewels 14.7 H, Plt Count 123 L, MPV 10.3, Immature Gran % (Auto) 0.500, Neut % (Auto) 58.1, Lymph % (Auto) 25.0, [place] % (Auto) 13.3 H, Eos % (Auto) 2.9, Baso % (Auto) 0.2, Absolute Neuts (auto) 4.9, Absolute Lymphs (auto) 2.13, Nucleated RBC % 0 09/30/21 04:54: Sodium 139, Potassium 3.7, Chloride 104, Carbon Dioxide 24.0, Anion Gap 11, BUN 51 H, Creatinine 4.18 H, Estim Creat Clear Calc 13.34, Est GFR (MDRD) Af Amer 18 L, Est GFR (MDRD) Non-Af 15 L, BUN/Creatinine Ratio 12.2, Glucose 191 H, Calcium 7.9 L 09/30/21 06:39: POC Glucose 190 H Physical Exam Const alert and oriented x3 Resp Auscultation: diminished lung sounds Cardio Cardio Narrative: paced GI non-tender GI Narrative: distended Palpation: ascites Extremity General Extremity: edema bilateral Skin Skin Narrative: ecchymosis, facial abrasion from fall Neuro Sensorium / Orientation: awake and alert Assessment & Plan Assessment/Plan (1) Acute renal failure: PLAN: dialysis #3 today. Dialysis set up in [facility]. will stop lasix since pt oliguric. Increase midodrine dose for low BP. Will need dose before dialysis at outpt unit. (2) Coronary artery disease: PLAN: s/p CABG, defibrillator, CMP EF 35% (3) Essential (primary) hypertension: PLAN: BP low. Increase midodrine to 20mg tid (4) Ascites: PLAN: s/p paracentesis, GI following (5) Cirrhosis: PLAN: GI following (6) Hyperphosphatemia: PLAN: on binders (7) Anasarca: PLAN: Remove fluid on dialysis. (8) DM2 (diabetes mellitus, type 2): PLAN: stable (9) Anemia of chronic disease: PLAN: iv iron load, epo x1 (10) Secondary hyperparathyroidism: PLAN: start calcitriol
--- NOTE | 2021-09-30 08:55 | CASEMGMT ---
JENY SANDS called [facility] HD regarding patient's chair time. Per Sujata at [facility], patient is approved for outpatient HD at [facility] on MWF at 11:15. JENY SANDS updated SW Mireya Morales. CM will continue to follow this patient and plan for a safe discharge.
--- NOTE | 2021-09-30 09:11 | CASEMGMT ---
Discharge Transcribing Operators Supervisor Discharge Transcribing Operators Supervisor called Christina at [facility]. DON is looking over referral. Celia Olmos Discharge Planning Asssistant
--- NOTE | 2021-09-30 09:13 | PN.HOSP_ITS ---
Subjective Subjective Feels better today after dialysis yesterday. Says that he is not coughing up as much and does not feel as volume overloaded Objective Data Objective Data Vital Signs: Vital Signs Temp Pulse Resp BP Pulse Ox 99.0 F 94 12 130/62 H 96 09/30/21 02:25 09/30/21 07:00 09/30/21 02:25 09/30/21 02:25 09/30/21 02:25 Oxygen Delivery Method [3] Room Air Oxygen Delivery Method [2] Room Air Oxygen Delivery Method [1 ( Room Air Initial Baseline)] Oxygen Delivery Method Room Air Weight: 194 lb Body Mass Index (BMI) 27.8 Intake & Output: Intake and Output for Last 24 Hours 09/29/21 09/30/21 10/01/21 03:59 03:59 03:59 Intake Total 650 / 650 822 / 822 600 / 600 Output Total 900 / 900 1700 / 1700 100 / 100 Balance -250 / -250 -878 / -878 500 / 500 Lab / Micro Data Result Diagrams: 09/30/21 04:54 09/30/21 04:54 Labs: Laboratory Results - last 24 hr 09/25/21 08:51: Miscellaneous Cytology SEE PATHOLOGY REPORT 09/29/21 11:11: POC Glucose 138 H 09/29/21 15:45: POC Glucose 266 H 09/29/21 21:25: POC Glucose 166 H 09/30/21 04:54: WBC 8.5, RBC 3.07 L, Hgb 9.9 L, Hct 30.2 L, MCV 98.4 H, MCH 32.2 H, MCHC 32.8, RDW Std Deviation 53.1 H, RDW Coeff of Jewels 14.7 H, Plt Count 123 L , MPV 10.3, Immature Gran % (Auto) 0.500, Neut % (Auto) 58.1, Lymph % (Auto) 25.0, [place] % (Auto) 13.3 H, Eos % (Auto) 2.9, Baso % (Auto) 0.2, Absolute Neuts (auto) 4.9, Absolute Lymphs (auto) 2.13, Nucleated RBC % 0 09/30/21 04:54: Sodium 139, Potassium 3.7, Chloride 104, Carbon Dioxide 24.0, Anion Gap 11, BUN 51 H, Creatinine 4.18 H, Estim Creat Clear Calc 13.34, Est GFR (MDRD) Af Amer 18 L, Est GFR (MDRD) Non-Af 15 L, BUN/Creatinine Ratio 12.2, Glucose 191 H, Calcium 7.9 L 09/30/21 06:39: POC Glucose 190 H Physical Exam Narrative Const alert, oriented x3 and no apparent distress General Appearance: cooperative HEENT normocephalic and moist oral mucous membranes Eyes PERRL, EOMs intact bilaterally and conjunctivae normal Neck supple and no JVD Resp normal respiratory effort, no retractions and no use of accessory muscles Auscultation: diminished lung sounds; Negative for crackles, rales, rhonchi or wheezes Cardio regular rate, regular rhythm, S1 normal heart sound, S2 normal heart sound and no murmurs GI soft to palpation, non-tender, distended consistent with ascites but softer than when he came into the hospital Extremity no clubbing, cyanosis or edema Skin Skin Narrative: Multiple lacerations and abrasions over his face and right upper extremity.? He has significant bruising and swelling over his left upper extremity from a fall previously.? He says it is painful but sensation is intact. Neuro no focal motor deficits and no sensory deficits noted Psych affect normal Appearance: appropriate Assessment & Plan Assessment/Plan (1) Acute renal failure: (2) Coronary artery disease: (3) Diabetes: (4) Essential (primary) hypertension: (5) Depression: PLAN: Plan 1. Acute renal failure/weakness and debility ? Unsure as to the etiology, he is on Bumex at home as well as Coreg ? We will continue with gentle IV hydration and nephrology was consulted for evaluation and assistance in management ? We will consult wound care to help with the use will multiple superficial wounds. ? His left upper extremity is very swollen but does not appear to be infected at this time will allow for gradual resolution of the swelling if it does get any worse and he loses sensation will need emergency transfer to tertiary care center that has hand surgery. Appears to be improving ? PT/OT for evaluation and placement in a SNF ? Plan for dialysis today we will have to obtain pre-CERT for different SNF placement secondary to his need for dialysis 2. 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 Continue with his PPI ? Appreciate gastroenterology's assistance ? Paracentesis withdrew about 5 L, cytology is pending preliminarily does not appear to be malignancy ? Has accumulated little bit more fluid in his abdomen already ? Continue with midodrine, lactulose, Xifaxan ? AST and ALT are normal, alk phos is elevated 3. CAD status post CABG/HTN/chronic systolic CHF ? Blood pressures are stable, will continue with his home Coreg ? We will DC Lasix ? Continue with Lipitor 4. DM2 ? Hold his home medications ? Placed on a sliding scale insulin ? Accu-Cheks AC at bedtime 5. GERD ? Stable ? Continue with PPI 6. BPH ? Stable ? Continue with Flomax DVT: SCD's Charges/Coding Visit Charges Inpatient E&M: 31843 Subs Hosp L2
[2021-09-30 11:06] LABS: Bedside Glucose 196 mg/dL (74-106)
[2021-09-30] MEDS: Heparin 10,000 UNITS/10 ML Vial 3200 UNITS IV (12:00)
--- NOTE | 2021-09-30 12:02 | CASEMGMT ---
Discharge Wet Process [place] [facility] Christina called from [facility]. Patient is accepted. Christina will start pre-cert. MARIAH Edwards notified. Celia Olmos Discharge Wet Process [facility]
--- NOTE | 2021-09-30 12:09 | DIALYSIS ---
HD x 3.5 hours complete. UF of 1200ml. Used right chest wall dialysis catheter. Lumens close with heparin per fill volume. Caps placed. Dressing is dry and intact. See tx sheet for more details. Report was given to JENY Sue.
[2021-09-30] MEDS: Pantoprazole Sodium 20 MG Tablet PO (13:06)
[2021-09-30] MEDS: Tamsulosin HCl 0.4 MG Capsule PO ×2 (13:06→21:59)
[2021-09-30] MEDS: Lactulose 20 GM/30 ML UDC 10 GM PO ×2 (13:07→21:59)
[2021-09-30] MEDS: Folic Acid/Vitamin B Comp W-C 1 Capsule 1 CAP PO (13:07)
[2021-09-30] MEDS: Midodrine HCl 5 MG Tablet 20 MG PO ×2 (13:15→16:21)
[2021-09-30] MEDS: Calcitriol 0.25 MCG Capsule PO (13:17)
--- NOTE | 2021-09-30 13:42 | CASEMGMT ---
Social Work SW let pt know that he was accepted at [facility] and they started precert, pt agreeable. SW explained will call his also, he is agreeable to this. SW called to let her know pt is accepted at [facility] and precert is started. agreeable and states understanding. SW will continue to follow. DIANNE Rocha
[2021-09-30 16:21] LABS: Bedside Glucose 214 mg/dL (74-106)
--- NOTE | 2021-09-30 17:01 | PCM.PROGNOTE ---
Subjective Subjective Patient is doing well and tolerating a normal diet. Objective Data Objective Data Vital Signs: Vital Signs Temp Pulse Resp BP Pulse Ox O2 Del Method 98.2 F 126 H 16 110/62 96 Room Air 09/30/21 08:25 09/30/21 13:24 09/30/21 08:25 09/30/21 08:25 09/30/21 12:39 09/30/21 16:15 Oxygen Delivery Method [3] Room Air Oxygen Delivery Method [2] Room Air Oxygen Delivery Method [1 ( Room Air Initial Baseline)] Oxygen Delivery Method Room Air Weight: 194 lb Body Mass Index (BMI) 27.8 Intake & Output: Intake and Output for Last 24 Hours 09/28/21 09/29/21 09/30/21 23:59 23:59 23:59 Intake Total 650 / 650 822 / 822 600 / 600 Output Total 900 / 900 1700 / 1700 100 / 100 Balance -250 / -250 -878 / -878 500 / 500 Lab / Micro Data Result Diagrams: 09/30/21 04:54 09/30/21 04:54 Labs: Laboratory Results - last 24 hr 09/25/21 08:51: Miscellaneous Cytology SEE PATHOLOGY REPORT 09/29/21 21:25: POC Glucose 166 H 09/30/21 04:54: WBC 8.5, RBC 3.07 L, Hgb 9.9 L, Hct 30.2 L, MCV 98.4 H, MCH 32.2 H, MCHC 32.8, RDW Std Deviation 53.1 H, RDW Coeff of Jewels 14.7 H, Plt Count 123 L, MPV 10.3, Immature Gran % (Auto) 0.500, Neut % (Auto) 58.1, Lymph % (Auto) 25.0, [place] % (Auto) 13.3 H, Eos % (Auto) 2.9, Baso % (Auto) 0.2, Absolute Neuts (auto) 4.9, Absolute Lymphs (auto) 2.13, Nucleated RBC % 0 09/30/21 04:54: Sodium 139, Potassium 3.7, Chloride 104, Carbon Dioxide 24.0, Anion Gap 11, BUN 51 H, Creatinine 4.18 H, Estim Creat Clear Calc 13.34, Est GFR (MDRD) Af Amer 18 L, Est GFR (MDRD) Non-Af 15 L, BUN/Creatinine Ratio 12.2, Glucose 191 H, Calcium 7.9 L 09/30/21 06:39: POC Glucose 190 H 09/30/21 11:00: POC Glucose 196 H 09/30/21 16:15: POC Glucose 214 H Physical Exam Narrative Const alert, oriented x3 and no apparent distress General Appearance: cooperative HEENT normocephalic and moist oral mucous membranes Eyes PERRL, EOMs intact bilaterally and conjunctivae normal Neck supple and no JVD Resp normal respiratory effort, no retractions and no use of accessory muscles Auscultation: diminished lung sounds; Negative for crackles, rales, rhonchi or wheezes Cardio regular rate, regular rhythm, S1 normal heart sound, S2 normal heart sound and no murmurs GI soft to palpation, non-tender, distended consistent with ascites but softer than when he came into the hospital Extremity no clubbing, cyanosis or edema Skin Skin Narrative: Multiple lacerations and abrasions over his face and right upper extremity.? He has significant bruising and swelling over his left upper extremity from a fall previously.? He says it is painful but sensation is intact. Neuro no focal motor deficits and no sensory deficits noted Psych affect normal Appearance: appropriate Assessment & Plan Assessment/Plan (1) Ascites: PLAN: Patient may need paracentesis prior to him being discharged from the hospital. Dialysis has been helping his fluid balance. He is set up for dialysis as an outpatient on Tuesday and Tuesday. (2) Cirrhosis: PLAN: He has not shown any signs of bleeding at this time. He is not jaundice at this time. He is not encephalopathic at this time. He is still dealing with ascites. But it likely will be able to be controlled with dialysis. His meld score has decreased since being in the hospital which is good but he still has a very bad prognosis due to comorbidities. Charges/Coding Visit Charges Inpatient E&M: 89246 Subs Hosp L2
[2021-09-30] MEDS: Atorvastatin Calcium 40 MG Tablet PO (22:00)
[2021-09-30 22:20] LABS: Bedside Glucose 192 mg/dL (74-106)
[2021-10-01] VITALS (12 sets, daily range): BP systolic 95–118; BP diastolic 51–68; PULSE 80–108; RESP 16–20; TEMP 36.6–37.2; O2SAT 95–97
[2021-10-01 06:00] LABS: Anion Gap 10 (5-15); BUN 33 mg/dL (7-18); BUN/Creat Ratio 9.8 RATIO (10-20); Chloride 103 mmol/L (98-107); Creatinine, Serum 3.38 mg/dL (0.70-1.30); EST Glomerular Filtration Rate 19 mL/min (>60); Est Glom Filt Rate - Afr Amer 22 mL/min (>60); Glucose 232 mg/dL (74-106); Phosphorus 3.2 mg/dL (2.5-4.9); Potassium 3.8 mmol/L (3.5-5.1); Sodium Level 138 mmol/L (136-145)
[2021-10-01] MEDS: Insulin Lispro 100 UNIT/ML INSULN.PEN SC ×4 (06:14→22:05)
[2021-10-01 06:26] LABS: Bedside Glucose 189 mg/dL (74-106)
[2021-10-01] MEDS: Midodrine HCl 5 MG Tablet 20 MG PO ×3 (09:21→18:27)
[2021-10-01] MEDS: Lactulose 20 GM/30 ML UDC 10 GM PO ×2 (09:21→21:09)
[2021-10-01] MEDS: Calcium Acetate 667 MG Capsule PO (09:21)
[2021-10-01] MEDS: Calcitriol 0.25 MCG Capsule PO (09:22)
[2021-10-01] MEDS: Pantoprazole Sodium 20 MG Tablet PO (09:22)
[2021-10-01] MEDS: Tamsulosin HCl 0.4 MG Capsule PO ×2 (09:23→21:09)
[2021-10-01] MEDS: Folic Acid/Vitamin B Comp W-C 1 Capsule 1 CAP PO (09:23)
--- NOTE | 2021-10-01 11:13 | CASEMGMT ---
Social Work SW called Grisel at [facility], message left inquiring about precert. MARIAH will continue to follow. DIANNE Rocha
[2021-10-01 11:56] LABS: Bedside Glucose 245 mg/dL (74-106)
--- NOTE | 2021-10-01 13:50 | PN.RENAL_ITS ---
Subjective Subjective appetite still poor, edema persists. No urine output. Waiting on disposition. Next dialysis Tuesday Objective Data Objective Data Vital Signs: Vital Signs Temp Pulse Resp BP Pulse Ox O2 Del Method 98.9 F 95 20 H 107/51 L 97 Room Air 10/01/21 12:47 10/01/21 12:47 10/01/21 12:47 10/01/21 12:47 10/01/21 12:47 10/01/21 12:47 Oxygen Delivery Method [3] Room Air Oxygen Delivery Method [2] Room Air Oxygen Delivery Method [1 ( Room Air Initial Baseline)] Oxygen Delivery Method Room Air Weight: 87.997 kg Body Mass Index (BMI) 27.8 Intake & Output: Intake and Output for Last 24 Hours 09/29/21 09/30/21 10/01/21 23:59 23:59 23:59 Intake Total 822 / 822 900 / 900 900 / 900 Output Total 1700 / 1700 200 / 200 125 / 125 Balance -878 / -878 700 / 700 775 / 775 Lab / Micro Data Result Diagrams: 09/30/21 04:54 10/01/21 04:40 Labs: Laboratory Results - last 24 hr 09/30/21 16:15: POC Glucose 214 H 09/30/21 21:57: POC Glucose 192 H 10/01/21 04:40: Sodium 138, Potassium 3.8, Chloride 103, Carbon Dioxide 25.0, Anion Gap 10, BUN 33 H, Creatinine 3.38 H, Estim Creat Clear Calc 16.50, Est GFR (MDRD) Af Amer 22 L, Est GFR (MDRD) Non-Af 19 L, BUN/Creatinine Ratio 9.8 L, Glucose 232 H, Calcium 8.0 L, Phosphorus 3.2 10/01/21 06:12: POC Glucose 189 H 10/01/21 11:49: POC Glucose 245 H Physical Exam Const alert and oriented x3 Cardio Cardio Narrative: paced GI non-tender GI Narrative: distended Extremity General Extremity: edema Skin Wounds: wounds noted Assessment & Plan Assessment/Plan (1) Acute renal failure: PLAN: dialysis next on Tuesday BEV weller. Dialysis set up in [facility]. (2) Coronary artery disease: PLAN: s/p CABG, defibrillator, CMP EF 35% (3) Essential (primary) hypertension: PLAN: BP low. Increase midodrine to 20mg tid (4) Ascites: PLAN: s/p paracentesis, GI following (5) Cirrhosis: PLAN: GI following (6) Anasarca: PLAN: Remove fluid on dialysis. (7) DM2 (diabetes mellitus, type 2): PLAN: stable (8) Anemia of chronic disease: PLAN: iv iron load, epo x1 (9) Secondary hyperparathyroidism: PLAN: started calcitriol
[2021-10-01 16:25] LABS: Bedside Glucose 196 mg/dL (74-106)
--- NOTE | 2021-10-01 19:08 | PN.HOSP_ITS ---
Subjective Subjective Patient was seen and examined today, his next dialysis is tomorrow. We are [place] placement in a [place] facility at the present time. Patient has no complaints of any shortness of breath or pain at the time my examination. Patient had paracentesis performed approximately a week ago, I will repeat his ultrasound tomorrow morning for possible repeat of the paracentesis. We are still awaiting for approval for the patient to go to an extended care facility. Objective Data Objective Data Vital Signs: Vital Signs Temp Pulse Resp BP Pulse Ox O2 Del Method 98.5 F 100 18 118/68 97 Room Air 10/01/21 18:23 10/01/21 18:23 10/01/21 18:23 10/01/21 18:23 10/01/21 18:23 10/01/21 18:23 Oxygen Delivery Method [3] Room Air Oxygen Delivery Method [2] Room Air Oxygen Delivery Method [1 ( Room Air Initial Baseline)] Oxygen Delivery Method Room Air Weight: 87.997 kg Body Mass Index (BMI) 27.8 Intake & Output: Intake and Output for Last 24 Hours 09/29/21 09/30/21 10/01/21 23:59 23:59 23:59 Intake Total 822 / 822 900 / 900 1100 / 1100 Output Total 1700 / 1700 200 / 200 175 / 175 Balance -878 / -878 700 / 700 925 / 925 Lab / Micro Data Result Diagrams: 09/30/21 04:54 10/02/21 04:11 Labs: Laboratory Results - last 24 hr 09/30/21 21:57: POC Glucose 192 H 10/01/21 04:40: Sodium 138, Potassium 3.8, Chloride 103, Carbon Dioxide 25.0, Anion Gap 10, BUN 33 H, Creatinine 3.38 H, Estim Creat Clear Calc 16.50, Est GFR (MDRD) Af Amer 22 L, Est GFR (MDRD) Non-Af 19 L, BUN/Creatinine Ratio 9.8 L, Glucose 232 H, Calcium 8.0 L, Phosphorus 3.2 10/01/21 06:12: POC Glucose 189 H 10/01/21 11:49: POC Glucose 245 H 10/01/21 16:21: POC Glucose 196 H Physical Exam Const alert, oriented x3 and no apparent distress Constitutional Narrative: Patient appears frail and older than his stated age General Appearance: cooperative, well kempt and well developed Orientation / Consciousness: awake, oriented to person, oriented to place and oriented to time HEENT normocephalic and moist oral mucous membranes Eyes PERRL, EOMs intact bilaterally and conjunctivae normal Neck nuchal rigidity, supple, no JVD, thyroid normal and no carotid bruits General: trachea midline Resp normal respiratory effort and clear to auscultation bilaterally Auscultation: Negative for rales, rhonchi or wheezes Cardio regular rate, regular rhythm, S1 normal heart sound, S2 normal heart sound, no murmurs, no rub and no gallops GI GI Narrative: Patient's abdomen is distended and tympanic, there is no rebound abdominal tenderness noted, normal bowel sounds are noted Skin Skin Narrative: Patient has multiple abrasions and superficial ecchymotic areas over various parts of his body General Skin Exam: no breakdown Neuro oriented x3, CN's II-XII intact bilaterally, moves all extremities, no focal motor deficits and no sensory deficits noted Sensorium / Orientation: awake and alert Speech: speech normal Psych affect normal Assessment & Plan Assessment/Plan (1) Acute renal failure: PLAN: Plan 1. Acute renal failure-patient will undergo dialysis tomorrow, we are [place] placement in a [place] facility for the patient #2 cirrhosis with chronic ascites-I will have the patient undergo an ultrasound guided paracentesis tomorrow, GI is participating in his care #3 coronary artery disease-stable at this time, continue present medications #4 type 2 diabetes-patient will remain on sliding scale insulin per fingerstick blood sugars #5 essential hypertension-patient will remain on his present medications #6 generalized debility-PT and OT will continue to see the patient, he will need placement in a [place] facility #7 hyperlipidemia-patient is on a statin #8 anemia of chronic renal disease-this appears to be stable at this time #9 BPH-patient is on Flomax Charges/Coding Visit Charges Inpatient E&M: 33530 Subs Hosp L2
[2021-10-01] MEDS: Atorvastatin Calcium 40 MG Tablet PO (21:10)
[2021-10-01 22:26] LABS: Bedside Glucose 188 mg/dL (74-106)
[2021-10-02] VITALS (13 sets, daily range): BP systolic 97–133; BP diastolic 60–77; PULSE 62–110; RESP 18–24; TEMP 36.3–37; O2SAT 95–99
[2021-10-02] MEDS: 0.9% Saline Lock 10 ML Syringe IV ×2 (02:47→22:53)
[2021-10-02 05:07] LABS: International Normalized Ratio 1.3; Prothrombin Time (Protime)PT. 15.7 SECONDS (11.7-14.9)
[2021-10-02 05:08] LABS: Partial Thromboplast Time 36.7 Seconds (24.1-36.2)
[2021-10-02 05:23] LABS: Albumin, Serum 2.3 g/dL (3.2-5.0); BUN 35 mg/dL (7-18); BUN/Creat Ratio 9.2 RATIO (10-20); Calcium,Total 8.3 mg/dL (8.5-10.1); Chloride 101 mmol/L (98-107); Creatinine, Serum 3.82 mg/dL (0.70-1.30); EST Glomerular Filtration Rate 16 mL/min (>60); Est Glom Filt Rate - Afr Amer 19 mL/min (>60); Glucose 185 mg/dL (74-106); Phosphorus 3.7 mg/dL (2.5-4.9); Potassium 3.9 mmol/L (3.5-5.1); Sodium Level 135 mmol/L (136-145)
[2021-10-02] MEDS: Insulin Lispro 100 UNIT/ML INSULN.PEN SC ×4 (06:20→23:19)
[2021-10-02 06:25] LABS: Bedside Glucose 204 mg/dL (74-106)
[2021-10-02] MEDS: Midodrine HCl 5 MG Tablet 20 MG PO ×3 (07:43→17:09)
--- NOTE | 2021-10-02 11:59 | DIALYSIS ---
HD x 3.5 hours complete. Ran on 4k bath. UF of 1000ml. Used right chest wall dialysis catheter. Lumens closed with heparin per fill volume. Caps placed. Dressing is dry and intact. See tx sheet for more details. Report was given to JENY Cheng.
[2021-10-02] MEDS: Lactulose 20 GM/30 ML UDC 10 GM PO ×2 (12:54→22:53)
[2021-10-02] MEDS: Folic Acid/Vitamin B Comp W-C 1 Capsule 1 CAP PO (12:54)
[2021-10-02] MEDS: Tamsulosin HCl 0.4 MG Capsule PO ×2 (12:54→22:56)
[2021-10-02] MEDS: Calcitriol 0.25 MCG Capsule PO (12:54)
[2021-10-02] MEDS: Pantoprazole Sodium 20 MG Tablet PO (12:54)
[2021-10-02] MEDS: Heparin 10,000 UNITS/10 ML Vial 3200 UNITS IV (13:03)
--- NOTE | 2021-10-02 13:50 | CASEMGMT ---
Discharge Edger Liner Called Christina at [facility]. Pre-cert is still pending. Will follow up. Celia Olmos Discharge Edger Liner
--- NOTE | 2021-10-02 14:05 | NURSING ---
Pt transported to radiology for paracentesis via radiology clerk
[2021-10-02] MEDS: Lidocaine 2% (20 ml mdv) 20 ML Vial INFILT (14:10)
[2021-10-02 15:46] LABS: Bedside Glucose 158 mg/dL (74-106)
--- NOTE | 2021-10-02 16:06 | CASEMGMT ---
JENY CM in to pt room to make aware that we have not heard back from pt insurance regarding precertification. Pt states frustration with this. He states [employer] called him today to make aware that they had paid his bills. TC to pt , she is also aware that we are still awaiting precert and pt will likely be here through the weekend. She denies any questions.
[2021-10-02 17:21] LABS: Bedside Glucose 221 mg/dL (74-106)
--- NOTE | 2021-10-02 18:00 | PCM.PN.HOSP ---
Subjective Subjective Patient was seen and examined today, he underwent a paracentesis today with removal of 8750 cc of deshaun-colored fluid. Gastroenterology was contacted and gave the patient albumin. Patient underwent dialysis today, we have not received pre-CERT for him to go to a [place] at this time. Objective Data Objective Data Vital Signs: Vital Signs Temp Pulse Resp BP Pulse Ox O2 Del Method 97.8 F 94 24 H 133/77 H 99 Room Air 10/02/21 15:51 10/02/21 15:51 10/02/21 15:51 10/02/21 15:51 10/02/21 15:51 10/02/21 15:55 Oxygen Delivery Method [4] Room Air Oxygen Delivery Method [3] Room Air Oxygen Delivery Method [2] Room Air Oxygen Delivery Method [1 ( Room Air Initial Baseline)] Oxygen Delivery Method [3] Room Air Oxygen Delivery Method [2] Room Air Oxygen Delivery Method [1 ( Room Air Initial Baseline)] Oxygen Delivery Method Room Air Weight: 87.997 kg Body Mass Index (BMI) 27.8 Intake & Output: Intake and Output for Last 24 Hours 09/30/21 10/01/21 10/02/21 23:59 23:59 23:59 Intake Total 900 / 900 1250 / 1250 600 / 600 Output Total 200 / 200 175 / 175 9750 / 9750 Balance 700 / 700 1075 / 1075 -9150 / -9150 Lab / Micro Data Result Diagrams: 09/30/21 04:54 10/02/21 04:11 Labs: Laboratory Results - last 24 hr 10/01/21 22:02: POC Glucose 188 H 10/02/21 04:11: Sodium 135 L, Potassium 3.9, Chloride 101, Carbon Dioxide 24.0, BUN 35 H, Creatinine 3.82 H, Estim Creat Clear Calc 14.60, Est GFR (MDRD) Af Amer 19 L, Est GFR (MDRD) Non-Af 16 L, BUN/Creatinine Ratio 9.2 L, Glucose 185 H, Calcium 8.3 L, Phosphorus 3.7, Albumin 2.3 L 10/02/21 04:11: PT 15.7 H, INR 1.3, APTT 36.7 H 10/02/21 06:20: POC Glucose 204 H 10/02/21 12:06: POC Glucose 158 H 10/02/21 17:07: POC Glucose 221 H Radiography Diagnostic Testing: Radiology Impression Paracentesis Ultrasound 10/02/21 20:25 IMPRESSION: Ultrasound guided paracentesis. Electronically Signed: Pantera Sultana MD at 15:31 EDT , Physical Exam Const alert, oriented x3 and no apparent distress Constitutional Narrative: Patient appears frail and older than his stated age General Appearance: cooperative, well kempt and well developed Orientation / Consciousness: awake, oriented to person, oriented to place and oriented to time HEENT normocephalic and moist oral mucous membranes Eyes PERRL, EOMs intact bilaterally and conjunctivae normal Neck nuchal rigidity, supple, no JVD, thyroid normal and no carotid bruits General: trachea midline Lymph Lymphatic: no lymphadenopathy noted Resp normal respiratory effort, normal air movement, no retractions, no use of accessory muscles and clear to auscultation bilaterally Auscultation: diminished lung sounds; Negative for crackles, rales, rhonchi or wheezes Cardio regular rate, regular rhythm, S1 normal heart sound, S2 normal heart sound, no murmurs, no rub and no gallops GI normal to inspection, nondistended, normoactive bowel sounds, soft to palpation, non-tender and non-distended; Negative for hepatosplenomegaly GI Narrative: Patient's abdomen is distended and tympanic, there is no rebound abdominal tenderness noted, normal bowel sounds are noted Extremity no clubbing, cyanosis or edema Extremity Narrative: Left upper extremity marked edema and ecchymosis Skin Skin Narrative: Patient has multiple abrasions and superficial ecchymotic areas over various parts of his body General Skin Exam: no breakdown Neuro oriented x3, CN's II-XII intact bilaterally, moves all extremities, no focal motor deficits and no sensory deficits noted Sensorium / Orientation: awake and alert Speech: speech normal Psych thought process normal and affect normal Appearance: appropriate Assessment & Plan Assessment/Plan (1) Acute renal failure: PLAN: Plan 1. Acute renal failure-patient went dialysis today, we are currently awaiting for pre-CERT for [place] go [place] a [place] #2 cirrhosis with chronic ascites-patient had over 8 L of ascitic fluid removed today, I will infuse 50 g of albumin #3 coronary artery disease-stable at this time, continue present medications #4 type 2 diabetes-patient will remain on sliding scale insulin per fingerstick blood sugars #5 essential hypertension-patient will remain on his present medications #6 generalized debility-PT and OT will continue to see the patient, he will need placement in a snf facility #7 hyperlipidemia-patient is on a statin #8 anemia of chronic renal disease-this appears to be stable at this time #9 BPH-patient is on Flomax Charges/Coding Visit Charges Inpatient E&M: 96765 Subs Hosp L2
--- NOTE | 2021-10-02 18:11 | PN_ITS ---
Subjective Subjective Patient underwent large-volume paracentesis today. He feels a lot better today after undergoing paracentesis. Objective Data Objective Data Vital Signs: Vital Signs Temp Pulse Resp BP Pulse Ox O2 Del Method 97.8 F 94 24 H 133/77 H 99 Room Air 10/02/21 15:51 10/02/21 15:51 10/02/21 15:51 10/02/21 15:51 10/02/21 15:51 10/02/21 15:55 Oxygen Delivery Method [4] Room Air Oxygen Delivery Method [3] Room Air Oxygen Delivery Method [2] Room Air Oxygen Delivery Method [1 ( Room Air Initial Baseline)] Oxygen Delivery Method [3] Room Air Oxygen Delivery Method [2] Room Air Oxygen Delivery Method [1 ( Room Air Initial Baseline)] Oxygen Delivery Method Room Air Weight: 194 lb Body Mass Index (BMI) 27.8 Intake & Output: Intake and Output for Last 24 Hours 09/30/21 10/01/21 10/02/21 23:59 23:59 23:59 Intake Total 900 / 900 1250 / 1250 600 / 600 Output Total 200 / 200 175 / 175 9750 / 9750 Balance 700 / 700 1075 / 1075 -9150 / -9150 Lab / Micro Data Result Diagrams: 09/30/21 04:54 10/02/21 04:11 Labs: Laboratory Results - last 24 hr 10/01/21 22:02: POC Glucose 188 H 10/02/21 04:11: Sodium 135 L, Potassium 3.9, Chloride 101, Carbon Dioxide 24.0, BUN 35 H, Creatinine 3.82 H, Estim Creat Clear Calc 14.60, Est GFR (MDRD) Af Amer 19 L, Est GFR (MDRD) Non-Af 16 L, BUN/Creatinine Ratio 9.2 L, Glucose 185 H , Calcium 8.3 L, Phosphorus 3.7, Albumin 2.3 L 10/02/21 04:11: PT 15.7 H, INR 1.3, APTT 36.7 H 10/02/21 06:20: POC Glucose 204 H 10/02/21 12:06: POC Glucose 158 H 10/02/21 17:07: POC Glucose 221 H Radiography Diagnostic Testing: Radiology Impression Paracentesis Ultrasound 10/02/21 20:25 IMPRESSION: Ultrasound guided paracentesis. Electronically Signed: Pantera Sultana MD at 15:31 EDT , Physical Exam Const alert, oriented x3 and no apparent distress Constitutional Narrative: Patient appears frail and older than his stated age General Appearance: cooperative, well kempt and well developed Orientation / Consciousness: awake, oriented to person, oriented to place and oriented to time HEENT normocephalic and moist oral mucous membranes Eyes PERRL, EOMs intact bilaterally and conjunctivae normal Neck nuchal rigidity, supple, no JVD, thyroid normal and no carotid bruits General: trachea midline Lymph Lymphatic: no lymphadenopathy noted Resp normal respiratory effort, normal air movement, no retractions, no use of accessory muscles and clear to auscultation bilaterally Auscultation: diminished lung sounds; Negative for crackles, rales, rhonchi or wheezes Cardio regular rate, regular rhythm, S1 normal heart sound, S2 normal heart sound, no murmurs, no rub and no gallops GI normal to inspection, nondistended, normoactive bowel sounds, soft to palpation, non-tender and non-distended; Negative for hepatosplenomegaly GI Narrative: Patient's abdomen is distended and tympanic, there is no rebound abdominal tenderness noted, normal bowel sounds are noted Extremity no clubbing, cyanosis or edema Extremity Narrative: Left upper extremity marked edema and ecchymosis Skin Skin Narrative: Patient has multiple abrasions and superficial ecchymotic areas over various parts of his body General Skin Exam: no breakdown Neuro oriented x3, CN's II-XII intact bilaterally, moves all extremities, no focal motor deficits and no sensory deficits noted Sensorium / Orientation: awake and alert Speech: speech normal Psych thought process normal and affect normal Appearance: appropriate Assessment & Plan Assessment/Plan (1) Cirrhosis: PLAN: Decompensated cirrhosis with ascites in the setting of chronic renal failure. No need for diuretic therapy at this time. 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 He will need screening EGD for varices as an outpatient. He should be on lactulose 20 cc daily to twice daily to keep him having a 3 bowel movements a day (2) Ascites: PLAN: . Status post large-volume paracentesis. I will give him albumin. He w ill need to be set up for once a week paracentesis as an outpatient. Charges/Coding Visit Charges Inpatient E&M: 41933 Subs Hosp L2
--- NOTE | 2021-10-02 20:25 | US_ITS ---
PROCEDURE: Ultrasound guided paracentesis. DATE OF EXAMINATION: 10/02/2021. INDICATION: Male, 85 years old. Ascites. PHYSICIAN: Pantera Sultana M.D. TECHNIQUE: The risks, benefits, and alternatives to the procedure were explained to the patient. The specific risks of bleeding, infection, and damage to bowel were detailed and accepted. Witnessed informed consent was obtained. The abdomen was ultrasonographically surveyed. An appropriate pocket of fluid was identified at the right lower quadrant. The skin were cleaned and prepped in the usual sterile fashion. Using ultrasound guidance, the peritoneal cavity was accessed with a 5-[place]an paracentesis needle/catheter system. The trocar was removed. A total of 8750 ml of deshaun-colored fluid were removed from the peritoneal cavity. The catheter was removed and a sterile dressing was applied. The procedure was well tolerated. US/Paracentesis with US IMPRESSION: Ultrasound guided paracentesis. Electronically Signed: Pantera Sultana MD at 15:31 EDT ,
[2021-10-02] MEDS: Albumin Human 25% (100 mL) 25 GM/100 ML BAG IV (22:18)
--- NOTE | 2021-10-02 22:18 | PCM.PN.BLA ---
Progress Note dialysis today with 1L fluid removal. BP low on midodrine Physical Exam Const alert, oriented x3 and no apparent distress General Appearance: ill appearing and frail GI GI Narrative: ascites improved s/p paracentesis today Assessment & Plan Assessment/Plan (1) Acute renal failure: (2) Ascites: PLAN: improved s/p paracentesis (3) Cirrhosis: PLAN: GI following (4) Anasarca: PLAN: improving with dialysis (5) Anemia of chronic disease: PLAN: iv iron load (6) Secondary hyperparathyroidism: PLAN: continue calcitriol PLAN: Plan Niranjan on CKD stage 4 dialysis MWF. Dialysis today with 1L fluid removal. Beronica will need dialysis permanently since pt anuric, hypotensive with requirement for continued paracentesis weekly for ascites. Next dialysis Tuesday. Overall prognosis poor
[2021-10-02] MEDS: Atorvastatin Calcium 40 MG Tablet PO (22:57)
[2021-10-02] MEDS: MELATONIN 10 MG TABLET 5 MG PO (23:13)
[2021-10-03] VITALS (7 sets, daily range): BP systolic 103–119; BP diastolic 56–66; PULSE 73–98; RESP 16–20; TEMP 36.7–37.3; O2SAT 94–97
[2021-10-03] MEDS: Albumin Human 25% (100 mL) 25 GM/100 ML BAG IV (00:43)
[2021-10-03 00:55] LABS: Bedside Glucose 266 mg/dL (74-106)
[2021-10-03] MEDS: 0.9% Saline Lock 10 ML Syringe IV (06:21)
[2021-10-03] MEDS: Insulin Lispro 100 UNIT/ML INSULN.PEN SC ×4 (06:25→21:51)
[2021-10-03 09:50] LABS: Bedside Glucose 162 mg/dL (74-106)
[2021-10-03] MEDS: Lactulose 20 GM/30 ML UDC 10 GM PO ×2 (09:51→21:42)
[2021-10-03] MEDS: Midodrine HCl 5 MG Tablet 20 MG PO ×3 (09:51→17:04)
[2021-10-03] MEDS: Tamsulosin HCl 0.4 MG Capsule PO ×2 (09:52→21:43)
[2021-10-03] MEDS: Folic Acid/Vitamin B Comp W-C 1 Capsule 1 CAP PO (09:52)
[2021-10-03] MEDS: Pantoprazole Sodium 20 MG Tablet PO (09:52)
[2021-10-03] MEDS: Calcitriol 0.25 MCG Capsule PO (09:53)
[2021-10-03 11:30] LABS: Bedside Glucose 251 mg/dL (74-106)
--- NOTE | 2021-10-03 12:27 | PN.HOSP_ITS ---
Subjective Subjective Patient was seen and examined today, he does not complain of any fevers or chills, he has no complaints of any abdominal pain. Objective Data Objective Data Vital Signs: Vital Signs Temp Pulse Resp BP Pulse Ox O2 Del Method 98.0 F 87 18 107/56 L 96 Room Air 10/03/21 10:00 10/03/21 10:00 10/03/21 10:00 10/03/21 10:00 10/03/21 10:00 10/03/21 10:00 Oxygen Delivery Method [4] Room Air Oxygen Delivery Method [3] Room Air Oxygen Delivery Method [2] Room Air Oxygen Delivery Method [1 ( Room Air Initial Baseline)] Oxygen Delivery Method [3] Room Air Oxygen Delivery Method [2] Room Air Oxygen Delivery Method [1 ( Room Air Initial Baseline)] Oxygen Delivery Method Room Air Weight: 87.997 kg Body Mass Index (BMI) 27.8 Intake & Output: Intake and Output for Last 24 Hours 10/01/21 10/02/21 10/03/21 23:59 23:59 23:59 Intake Total 1250 / 1250 1100 / 1100 200 / 200 Output Total 175 / 175 9750 / 9750 Balance 1075 / 1075 -8650 / -8650 200 / 200 Lab / Micro Data Result Diagrams: 09/30/21 04:54 10/02/21 04:11 Labs: Laboratory Results - last 24 hr 10/02/21 12:06: POC Glucose 158 H 10/02/21 17:07: POC Glucose 221 H 10/02/21 23:18: POC Glucose 266 H 10/03/21 06:23: POC Glucose 162 H 10/03/21 11:15: POC Glucose 251 H Radiography Diagnostic Testing: Radiology Impression Paracentesis Ultrasound 10/02/21 20:25 IMPRESSION: Ultrasound guided paracentesis. Electronically Signed: Pantera Sultana MD at 15:31 EDT , Physical Exam Narrative Const alert, oriented x3 and no apparent distress Constitutional Narrative: Patient appears frail and older than his stated age General Appearance: cooperative, well kempt and well developed Orientation / Consciousness: awake, oriented to person, oriented to place and oriented to time HEENT normocephalic and moist oral mucous membranes Eyes PERRL, EOMs intact bilaterally and conjunctivae normal Neck supple, no JVD, thyroid normal and no carotid bruits General: trachea midline Lymph Lymphatic: no lymphadenopathy noted Resp normal respiratory effort, normal air movement, no retractions, no use of accessory muscles and clear to auscultation bilaterally Auscultation: diminished lung sounds; Negative for crackles, rales, rhonchi or wheezes Cardio regular rate, regular rhythm, S1 normal heart sound, S2 normal heart sound, no m urmurs, no rub and no gallops GI normal to inspection, nondistended, normoactive bowel sounds, soft to palpation, non-tender and non-distended; Negative for hepatosplenomegaly GI Narrative: Patient's abdomen is distended and tympanic, there is no rebound abdominal tenderness noted, normal bowel sounds are noted Extremity no clubbing, cyanosis or edema Extremity Narrative: Left upper extremity marked edema and ecchymosis Skin Skin Narrative: Patient has multiple abrasions and superficial ecchymotic areas over various parts of his body General Skin Exam: no breakdown Neuro oriented x3, CN's II-XII intact bilaterally, moves all extremities, no focal motor deficits and no sensory deficits noted Sensorium / Orientation: awake and alert Speech: speech normal Psych thought process normal and affect normal Appearance: appropriate Assessment & Plan Assessment/Plan (1) Acute renal failure: PLAN: Plan 1. Acute renal failure-patient will undergo dialysis again Tuesday-we are currently awaiting for pre-CERT for him to go to a group home #2 cirrhosis with chronic ascites-paracentesis was performed yesterday, patient will need to be set up with chronic paracentesis when he is discharged to the group home. #3 coronary artery disease-stable at this time, continue present medications #4 type 2 diabetes-patient will remain on sliding scale insulin per fingerstick blood sugars #5 essential hypertension-patient will remain on his present medications #6 generalized debility-PT and OT will continue to see the patient, he will need placement in a care home facility #7 hyperlipidemia-patient is on a statin #8 anemia of chronic renal disease-this appears to be stable at this time #9 BPH-patient is on Flomax Charges/Coding Visit Charges Inpatient E&M: 14143 Subs Hosp L2
[2021-10-03 17:21] LABS: Bedside Glucose 200 mg/dL (74-106)
[2021-10-03] MEDS: MELATONIN 10 MG TABLET 5 MG PO (21:42)
[2021-10-03] MEDS: Atorvastatin Calcium 40 MG Tablet PO (21:44)
[2021-10-03 22:51] LABS: Bedside Glucose 275 mg/dL (74-106)
[2021-10-04] VITALS (9 sets, daily range): BP systolic 115–134; BP diastolic 68–88; PULSE 75–99; RESP 15–16; TEMP 36.6–36.8; O2SAT 98–99
[2021-10-04] MEDS: Insulin Lispro 100 UNIT/ML INSULN.PEN SC ×3 (06:33→21:13)
[2021-10-04 06:41] LABS: Bedside Glucose 194 mg/dL (74-106)
[2021-10-04] MEDS: Midodrine HCl 5 MG Tablet 20 MG PO ×2 (09:41→13:22)
[2021-10-04] MEDS: Tamsulosin HCl 0.4 MG Capsule PO ×2 (09:42→21:13)
[2021-10-04] MEDS: Folic Acid/Vitamin B Comp W-C 1 Capsule 1 CAP PO (09:42)
[2021-10-04] MEDS: Pantoprazole Sodium 20 MG Tablet PO (09:42)
[2021-10-04] MEDS: Menthol/Lanolin/Calamine/Znox 113 GM Tube 1 APPLIC TOPICAL ×2 (09:43→21:12)
[2021-10-04] MEDS: Calcitriol 0.25 MCG Capsule PO (09:43)
[2021-10-04] MEDS: Lactulose 20 GM/30 ML UDC 10 GM PO ×2 (09:44→21:13)
--- NOTE | 2021-10-04 09:59 | PCM.PN.HOSP ---
Subjective Subjective Patient was seen and examined today, he does not complain of any shortness of breath to this examiner, patient states that he is discouraged he cannot be transferred to a rehab facility at this time, he knows that it is up to his insurance to get permission to do this. Patient's abdomen appears to be retaining fluid again although it is not severe at this point. He will more than likely need a repeat paracentesis on this coming Tuesday or Tuesday. Objective Data Objective Data Vital Signs: Vital Signs Temp Pulse Resp BP Pulse Ox O2 Del Method 98.3 F 87 16 115/80 99 Room Air 10/04/21 09:47 10/04/21 09:47 10/04/21 09:47 10/04/21 09:47 10/04/21 09:47 10/04/21 09:47 Oxygen Delivery Method [4] Room Air Oxygen Delivery Method [3] Room Air Oxygen Delivery Method [2] Room Air Oxygen Delivery Method [1 ( Room Air Initial Baseline)] Oxygen Delivery Method [3] Room Air Oxygen Delivery Method [2] Room Air Oxygen Delivery Method [1 ( Room Air Initial Baseline)] Oxygen Delivery Method Room Air Weight: 76.884 kg Body Mass Index (BMI) 27.8 Intake & Output: Intake and Output for Last 24 Hours 10/02/21 10/03/21 10/04/21 23:59 23:59 23:59 Intake Total 1100 / 1100 800 / 800 Output Total 9750 / 9750 Balance -8650 / -8650 800 / 800 Lab / Micro Data Result Diagrams: 09/30/21 04:54 10/02/21 04:11 Labs: Laboratory Results - last 24 hr 10/03/21 11:15: POC Glucose 251 H 10/03/21 17:09: POC Glucose 200 H 10/03/21 21:49: POC Glucose 275 H 10/04/21 06:32: POC Glucose 194 H Physical Exam Narrative Const alert, oriented x3 and no apparent distress Constitutional Narrative: Patient appears frail and older than his stated age General Appearance: cooperative, well kempt and well developed Orientation / Consciousness: awake, oriented to person, oriented to place and oriented to time HEENT normocephalic and moist oral mucous membranes Eyes PERRL, EOMs intact bilaterally and conjunctivae normal Neck supple, no JVD and thyroid normal General: trachea midline Lymph Lymphatic: no lymphadenopathy noted Resp normal respiratory effort, normal air movement, no retractions, no use of accessory muscles and clear to auscultation bilaterally Auscultation: diminished lung sounds; Negative for crackles, rales, rhonchi or wheezes Cardio regular rate, regular rhythm, S1 normal heart sound, S2 normal heart sound, no murmurs, no rub and no gallops GI normal to inspection, nondistended, normoactive bowel sounds, soft to palpation and non-tender GI Narrative: Patient's abdomen is mildly distended, it is nontender. Extremity no clubbing, cyanosis or edema Extremity Narrative: Left upper extremity marked edema and ecchymosis Skin Skin Narrative: Patient has multiple abrasions and superficial ecchymotic areas over various parts of his body General Skin Exam: no breakdown Neuro oriented x3, CN's II-XII intact bilaterally, moves all extremities, no focal motor deficits and no sensory deficits noted Sensorium / Orientation: awake and alert Speech: speech normal Psych thought process normal and affect normal Appearance: appropriate Assessment & Plan Assessment/Plan (1) Acute renal failure: PLAN: Plan 1. Acute renal failure-patient will undergo dialysis again Tuesday-we are currently awaiting for pre-CERT for [facility] to go [facility] a [facility] #2 cirrhosis with chronic ascites-paracentesis was performed 10/02/2021, patient will need to be set up with chronic paracentesis when he is [facility]. I feel he will probably need a repeat paracentesis either on 10/06/2021 or 10/07/2021. I have decided I will write for a repeat paracentesis on 10/06/2021 #3 coronary artery disease-stable at this time, continue present medications #4 type 2 diabetes-patient will remain on sliding scale insulin per fingerstick blood sugars #5 essential hypertension-patient will remain on his present medications #6 generalized debility-PT and OT will continue to see the patient, he will need placement in a nursing home facility #7 hyperlipidemia-patient is on a statin #8 anemia of chronic renal disease-this appears to be stable at this time #9 BPH-patient is on Flomax Charges/Coding Visit Charges Inpatient E&M: 42460 Subs Hosp L2
[2021-10-04 12:00] LABS: Bedside Glucose 302 mg/dL (74-106)
[2021-10-04] MEDS: Atorvastatin Calcium 40 MG Tablet PO (21:14)
[2021-10-04 21:25] LABS: Bedside Glucose 231 mg/dL (74-106)
[2021-10-04] MEDS: MELATONIN 10 MG TABLET 5 MG PO (22:44)
[2021-10-05] VITALS (10 sets, daily range): BP systolic 109–118; BP diastolic 62–70; PULSE 75–107; RESP 12–18; TEMP 36.6–37.2; O2SAT 94–99
[2021-10-05 05:21] LABS: Bedside Glucose 205 mg/dL (74-106)
[2021-10-05] MEDS: Insulin Lispro 100 UNIT/ML INSULN.PEN SC ×3 (06:28→22:03)
[2021-10-05 07:24] LABS: Albumin, Serum 2.5 g/dL (3.2-5.0); BUN 36 mg/dL (7-18); BUN/Creat Ratio 7.7 RATIO (10-20); Calcium,Total 7.9 mg/dL (8.5-10.1); Chloride 101 mmol/L (98-107); Creatinine, Serum 4.69 mg/dL (0.70-1.30); EST Glomerular Filtration Rate 13 mL/min (>60); Est Glom Filt Rate - Afr Amer 15 mL/min (>60); Estimated Creatinine Clearance 11.89 ml/min; Glucose 194 mg/dL (74-106); Potassium 4.6 mmol/L (3.5-5.1); Sodium Level 135 mmol/L (136-145)
[2021-10-05] MEDS: Midodrine HCl 5 MG Tablet 20 MG PO ×3 (07:38→17:16)
[2021-10-05] MEDS: Heparin 10,000 UNITS/10 ML Vial 3200 UNITS IV (08:00)
--- NOTE | 2021-10-05 09:37 | PN.HOSP_ITS ---
Subjective Subjective Follow-up on SONIA/new to dialysis/liver cirrhosis/recurrent ascites: Patient was seen and examined. No acute events overnight. He was seen on dialysis. Denied any complaints. Objective Data Objective Data Vital Signs: Vital Signs Temp Pulse Resp BP Pulse Ox O2 Del Method 98.0 F 107 H 12 114/70 99 Room Air 10/05/21 02:53 10/05/21 07:56 10/05/21 02:53 10/05/21 02:53 10/05/21 02:53 10/05/21 02:53 Oxygen Delivery Method [4] Room Air Oxygen Delivery Method [3] Room Air Oxygen Delivery Method [2] Room Air Oxygen Delivery Method [1 ( Room Air Initial Baseline)] Oxygen Delivery Method [3] Room Air Oxygen Delivery Method [2] Room Air Oxygen Delivery Method [1 ( Room Air Initial Baseline)] Oxygen Delivery Method Room Air Weight: 78 kg Body Mass Index (BMI) 27.8 Intake & Output: Intake and Output for Last 24 Hours 10/03/21 10/04/21 10/05/21 23:59 23:59 23:59 Intake Total 800 / 800 600 / 600 540 / 540 Balance 800 / 800 600 / 600 540 / 540 Lab / Micro Data Result Diagrams: 09/30/21 04:54 10/05/21 06:42 Labs: Laboratory Results - last 24 hr 10/04/21 11:43: POC Glucose 302 H 10/04/21 21:11: POC Glucose 231 H 10/05/21 05:12: POC Glucose 205 H 10/05/21 06:42: Sodium 135 L, Potassium 4.6, Chloride 101, Carbon Dioxide 25.0, BUN 36 H, Creatinine 4.69 H, Estim Creat Clear Calc 11.89, Est GFR (MDRD) Af Amer 15 L, Est GFR (MDRD) Non-Af 13 L, BUN/Creatinine Ratio 7.7 L, Glucose 194 H , Calcium 7.9 L, Phosphorus 4.0, Albumin 2.5 L Physical Exam Narrative Physical exam: General: Alert, appeared fluid overloaded, not pleural HEENT: Atraumatic Oral: Moist Mucosa Neck: Supple Lungs: Diminished to auscultation Cardiovascular: HS I+II, regular, no murmurs Abdomen: Bowel Sounds Present, Soft, Non Tender Extremities: Generalized edema, bilateral pedal edema +2-3, evidence of improvement with skin wrinkling Skin: Multiple bruises, abrasions, ecchymosis all over the body and extremities Neurological: Grossly intact Psych/Mental Status: Appropriate Assessment & Plan Assessment/Plan (1) Anasarca: (2) Acute renal failure: PLAN: Plan 1. SONIA, on CKD stage IV, new to dialysis, Tuesday?Tuesday?Tuesday Continue on dialysis as scheduled, nephrology following Electrolytes appear to be stable Repeat blood work in a.m. 2. Acute decompensated cirrhosis with ascites, status post large-volume paracentesis on to 8.3 L removed Will give albumin 50g x1 Patient will likely need weekly paracentesis Continue rifaximin and lactulose 3. Relative hypotension/CAD/hyperlipidemia/anemia of chronic renal disease/BPH remained stable Continue medications -statin, Flomax 4. Debility related to the above, awaiting discharge to senior living facility 5. DVT prophylaxis? Heparin SC Charges/Coding Visit Charges Inpatient E&M: 93238 Subs Hosp L2
--- NOTE | 2021-10-05 11:27 | DIALYSIS ---
HD x 3.5 hours complete. Ran on 3k bath. UF of 1000ml. Used right chest wall dialysis catheter. Lumens closed with heparin per fill volume. Caps placed. Dressing is dry and intact. See tx sheet for more details. Report was given to JENY Gunter.
[2021-10-05 11:40] LABS: Bedside Glucose 130 mg/dL (74-106)
[2021-10-05] MEDS: Albumin Human 25% (100 mL) 25 GM/100 ML BAG IV ×2 (12:22→14:37)
[2021-10-05] MEDS: 0.9% Saline Lock 10 ML Syringe IV ×2 (12:23→14:36)
[2021-10-05] MEDS: Menthol/Lanolin/Calamine/Znox 113 GM Tube 1 APPLIC TOPICAL (12:31)
[2021-10-05] MEDS: Folic Acid/Vitamin B Comp W-C 1 Capsule 1 CAP PO (12:32)
[2021-10-05] MEDS: Lactulose 20 GM/30 ML UDC 10 GM PO ×2 (12:32→22:03)
[2021-10-05] MEDS: Pantoprazole Sodium 20 MG Tablet PO (12:32)
[2021-10-05] MEDS: Calcitriol 0.25 MCG Capsule PO (12:33)
[2021-10-05] MEDS: Tamsulosin HCl 0.4 MG Capsule PO ×2 (12:33→22:03)
--- NOTE | 2021-10-05 12:51 | PCM.PN.BLA ---
Progress Note dialysis today with 1L fluid removal as tolerated. BP low on midodrine. Await disposition Assessment & Plan Assessment/Plan (1) Acute renal failure: PLAN: dialysis MWF, Will likely need chronic dialysis since pt anuric. Arrange outpt dialysis 3x/wk (2) Ascites: PLAN: s/p large volume paracentesis, anasarca, hypotension on midodrine (3) Cirrhosis: PLAN: GI following (4) Anasarca: PLAN: improving with fluid removal on dialysis as tolerated (5) Anemia of chronic disease: PLAN: iv iron (6) Secondary hyperparathyroidism: PLAN: calicitriol
[2021-10-05] MEDS: Heparin Injection (Vial) 5,000 UNIT/ML VIAL 5000 UNIT SC ×2 (13:26→22:04)
[2021-10-05 16:21] LABS: Bedside Glucose 264 mg/dL (74-106)
[2021-10-05] MEDS: Atorvastatin Calcium 40 MG Tablet PO (22:03)
[2021-10-05 22:20] LABS: Bedside Glucose 225 mg/dL (74-106)
[2021-10-05] MEDS: MELATONIN 10 MG TABLET 5 MG PO (23:36)
[2021-10-06] VITALS (9 sets, daily range): BP systolic 108–119; BP diastolic 57–78; PULSE 76–99; RESP 16–18; TEMP 36.7–37.2; O2SAT 95–98
[2021-10-06] MEDS: Heparin Injection (Vial) 5,000 UNIT/ML VIAL 5000 UNIT SC (04:56)
[2021-10-06 06:21] LABS: Bedside Glucose 131 mg/dL (74-106)
--- NOTE | 2021-10-06 07:48 | WOUNDNOTE ---
Pt states the dressing to the left hand was changed and patient does not want this nurse to remove the dressing. all other skin tears are now CECE. will continue to monitor. patient is still awaiting NH placement.
[2021-10-06] MEDS: Midodrine HCl 5 MG Tablet 20 MG PO ×3 (07:52→17:31)
--- NOTE | 2021-10-06 09:00 | CASEMGMT ---
Discharge Technician Automated Equipment Celia Discharge Technician Automated Equipment called Christina at [facility] and left a message to get an update on pre-cert. Will follow up. Discharge Technician Automated Equipment
--- NOTE | 2021-10-06 10:04 | US_ITS ---
PROCEDURE: Ultrasound guided paracentesis. DATE OF EXAMINATION: 10/06/2021. INDICATION: Male, 85 years old. Ascites. PHYSICIAN: Pantera Sultana M.D. TECHNIQUE: The risks, benefits, and alternatives to the procedure were explained to the patient. The specific risks of bleeding, infection, and damage to bowel were detailed and accepted. Witnessed informed consent was obtained. The abdomen was ultrasonographically surveyed. An appropriate pocket of fluid was identified at the right lower quadrant. The skin were cleaned and prepped in the usual sterile fashion. Using ultrasound guidance, the peritoneal cavity was accessed with a 5-[place]grin paracentesis needle/catheter system. The trocar was removed. A total of 6950 ml of deshaun-colored fluid were removed from the peritoneal cavity. The catheter was removed and a sterile dressing was applied. The procedure was well tolerated. US/Paracentesis with US IMPRESSION: Ultrasound guided paracentesis. Electronically Signed: Pantera Sultana MD at 14:31 EDT ,
[2021-10-06] MEDS: Menthol/Lanolin/Calamine/Znox 113 GM Tube 1 APPLIC TOPICAL (10:25)
[2021-10-06] MEDS: Lactulose 20 GM/30 ML UDC 10 GM PO (10:26)
[2021-10-06] MEDS: Folic Acid/Vitamin B Comp W-C 1 Capsule 1 CAP PO (10:27)
[2021-10-06] MEDS: Tamsulosin HCl 0.4 MG Capsule PO (10:27)
[2021-10-06] MEDS: Pantoprazole Sodium 20 MG Tablet PO (10:27)
[2021-10-06] MEDS: Calcitriol 0.25 MCG Capsule PO (10:27)
--- NOTE | 2021-10-06 10:27 | TREXTCAR_ITS ---
Diet Diet Order/Speech Therapy: 10/02/21 16:10 Diet: Cardiac - Heart Healthy Is pt able to select menu?: No Routine Orders/Code Status Suppository Type: Dulcolax 10mg Suppository Frequency: Daily PRN O2 Frequency: PRN Keep PO Greater than or Equal to (%): 94 Routine Lab Work: CBC (within 3 days) and - (CMP within 3 days) Code Status: Full Code Wound(s) forehead: Wound Type: Abrasion nose: Wound Type: Abrasion Rt shoulder: Wound Type: Abrasion Rt arm: Wound Type: multiple abrasions Rt hand: Wound Type: Skin Tear Dressing Change: Adaptic Rt palm: Wound Type: Abrasion Rt thumb: Wound Type: Skin Tear Dressing Change: Adaptic Lt arm: Wound Type: Seeping Dressing Change: Dry Sterile Dressing Lt pinky finger: Wound Type: Skin Tear Dressing Change: Dry Sterile Dressing Lt knee: Wound Type: Skin Tear RT knee: Wound Type: Skin Tear RT side of head: Wound Type: Abrasion left hand (base of thumb): Wound Type: Abrasion Dressing Change: Dry Sterile Dressing RIGHT SUBCLAVIAN: Wound Type: Abrasion left dorsal hand: Wound Type: open area Dressing Change: Adaptic R forearm: Wound Type: Skin Tear Right lower abdomen: Wound Type: Puncture Therapies Weight Bearing: Weight bearing as tolerated Extremity Affected:: Bilateral Lower Problem/Diagnosis (1) Acute renal failure: Status: Acute Code(s): N17.9 - Acute kidney failure, unspecified (2) Ascites: Status: Acute Code(s): R18.8 - Other ascites (3) Cirrhosis: Status: Acute Code(s): K74.60 - Unspecified cirrhosis of liver (4) Anasarca: Status: Acute Code(s): R60.1 - Generalized edema (5) Anemia of chronic disease: Status: Chronic Code(s): D63.8 - Anemia in other chronic diseases classified elsewhere (6) Secondary hyperparathyroidism: Status: Acute Code(s): N25.81 - Secondary hyperparathyroidism of renal origin Plan 1. SONIA, on CKD stage IV, new to dialysis, Tuesday?Tuesday?Tuesday Continue on dialysis as scheduled, nephrology following Electrolytes appear to be stable Repeat blood work in a.m. 2. Acute decompensated cirrhosis with ascites, status post large-volume paracentesis on to 8.3 L removed Will give albumin 50g x1 Patient will likely need weekly paracentesis Continue rifaximin and lactulose 3. Relative hypotension/CAD/hyperlipidemia/anemia of chronic renal disease/BPH remained stable Continue medications -statin, Flomax 4. Debility related to the above, awaiting discharge to custodial facility 5. DVT prophylaxis? Heparin SC Allergies/Procedures Done in Hospital Allergies No Known Allergies Allergy (Verified 07/02/21 16:31) Type of Care/Length of Stay Estimated LOS: Convalescent Care Less Than 30 days Type of Care Needed: Skilled Rehab Potential: Fair Prognosis: Fair Additional Orders/Day of Discharge Day of Discharge: 10/07/21 Dietary and Speech Recommendations Dietitian Recommendations/Changes: Will adjust diet to cardiac/sodium restricted given poor PO intake and decreased appetite; refusing supplements at this time. Consider appetite stimulant if poor appetite continues. Discharge Plan Admission Admit Date/Time: 09/21/21 22:28 Primary Reason for Your Visit: SONIA/recurrent ascites Attending Provider: Shelia Gilliam Primary Care Provider: Arash Mendiola Consulting Providers: Celeste Smith ; Sae Connelly ; Devon Busby ; Chon Hernandez ; Zane Mccoy Discharge Orders/Prescriptions Prescriptions: New Virt-Caps 1 mg Capsule 1 cap PO DAILY Qty: 0 0RF calcitriol 0.25 mcg Capsule 0.25 mcg PO DAILY Qty: 0 0RF lactulose 20 gram/30 mL Solution 10 g PO BID Qty: 0 0RF midodrine 5 mg Tablet 20 mg PO TIDCM Qty: 0 0RF Xifaxan 200 mg Tablet 200 mg PO TID Qty: 0 0RF Continued carvedilol 12.5 mg tablet 12.5 mg PO BID Rx Instructions: must administer with a meal/food omeprazole 20 mg capsule,delayed release(DR/EC) 20 mg PO DAILY tamsulosin [Flomax] 0.4 mg capsule 0.4 mg PO BID bumetanide 1 mg tablet 1 tab PO BID atorvastatin 40 mg tablet 40 tab PO QHS Label Comments: TAKE 1 TABLET BY MOUTH ONCE DAILY No Action glipizide 5 mg tablet 5 mg PO BID Referrals / Follow Up: Arash Mendiola MD [Primary Care Provider] - Disposition Disposition (needs filled in before D/C Order can be placed): Senior Living Facility
[2021-10-06 11:46] LABS: Bedside Glucose 257 mg/dL (74-106)
[2021-10-06] MEDS: Insulin Lispro 100 UNIT/ML INSULN.PEN SC ×2 (11:54→17:30)
--- NOTE | 2021-10-06 12:18 | CASEMGMT ---
JENY SANDS NOTE: Call placed to Karina @ [facility]. She was notified pt is discharging to [facility] today and will be due for OP HD tomorrow. She confirms pt's chair time is 11:15. Marcial ANGEL RN CM
--- NOTE | 2021-10-06 12:22 | PHA.DC.MR ---
Pharmacy Service has performed discharge medication reconciliation for this patient. The patient's discharge medication list was reviewed for discrepancies and discrepancies were resolved. Home Medications carvedilol 12.5 mg tablet 12.5 mg PO BID HEART 07/02/21 glipizide 5 mg tablet 5 mg PO BID DIABETES 07/02/21 omeprazole 20 mg capsule,delayed release 20 mg PO DAILY GERD 07/02/21 tamsulosin 0.4 mg capsule (Flomax) 0.4 mg PO BID URINATION 07/02/21 atorvastatin 40 mg tablet 40 tab PO QHS CHOLESTEROL 09/21/21 bumetanide 1 mg tablet 1 tab PO BID WATER PILL 09/21/21 calcitriol 0.25 mcg capsule 0.25 mcg PO DAILY #0 caps 10/06/21 lactulose 20 gram/30 mL oral solution 10 g (15 mL) PO BID #0 mL 10/06/21 midodrine 5 mg tablet 20 mg PO TIDCM #0 tabs 10/06/21 rifaximin 200 mg tablet (Xifaxan) 200 mg PO TID #0 tabs 10/06/21 vitamin B complex and vitamin C no.20-folic acid 1 mg capsule (Virt-Caps) 1 cap PO DAILY #0 caps 10/06/21
--- NOTE | 2021-10-06 12:55 | DS.PCM_ITS ---
Providers Date of Admission: 09/21/21 Date of Discharge: 10/06/21 Primary Care Physician: Dr. 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 Ascites and is tapped weekly EMERGENT Consult: No MD Notified: Yes Date Notified: 09/23/21 Time Notified: 07:44 Method of Notification: Text Comments:: obtaining previous records from [facility] 09/26/21 13:32 Consult: General Surgery Routine Consulting Provider: Devon Busby Reason for Consult: PERMANENT DIALYSIS PORT PLACEMENT EMERGENT Consult: No MD Notified: Yes Date Notified: 09/26/21 Time Notified: 13:33 Method of Notification: Text Reason For Visit: ACUTE RENAL FAILURE Diagnosis Discharge Diagnosis (1) Acute renal failure: Status: Acute Code(s): N17.9 - Acute kidney failure, unspecified (2) Ascites: Status: Acute Code(s): R18.8 - Other ascites (3) Cirrhosis: Status: Acute Code(s): K74.60 - Unspecified cirrhosis of liver (4) Anasarca: Status: Acute Code(s): R60.1 - Generalized edema (5) Anemia of chronic disease: Status: Chronic Code(s): D63.8 - Anemia in other chronic diseases classified elsewhere (6) Secondary hyperparathyroidism: Status: Acute Code(s): N25.81 - Secondary hyperparathyroidism of renal origin Medications at Discharge Home Medications carvedilol 12.5 mg tablet 12.5 mg PO BID HEART 07/02/21 glipizide 5 mg tablet 5 mg PO BID DIABETES 07/02/21 omeprazole 20 mg capsule,delayed release 20 mg PO DAILY GERD 07/02/21 tamsulosin 0.4 mg capsule (Flomax) 0.4 mg PO BID URINATION 07/02/21 atorvastatin 40 mg tablet 40 tab PO QHS CHOLESTEROL 09/21/21 bumetanide 1 mg tablet 1 tab PO BID WATER PILL 09/21/21 calcitriol 0.25 mcg capsule 0.25 mcg PO DAILY #0 caps 10/06/21 lactulose 20 gram/30 mL oral solution 10 g (15 mL) PO BID #0 mL 10/06/21 midodrine 5 mg tablet 20 mg PO TIDCM #0 tabs 10/06/21 rifaximin 200 mg tablet (Xifaxan) 200 mg PO TID #0 tabs 10/06/21 vitamin B complex and vitamin C no.20-folic acid 1 mg capsule (Virt-Caps) 1 cap PO DAILY #0 caps 10/06/21 Hospital Course Operations None Procedures Paracentesis Summary of Care Provided Minutes Spent on Discharge: 45 Hospital Course: 85-year-old male with multiple comorbidities who presented with multiple contusions and abrasions after mechanical fall. He had fallen 2 weeks ago with left upper extremity edema. His admitting blood work was remarkable for creatinine of 6.28 in [facility]. On admission, it improved to 5.99. His baseline creatinine is 2. He was admitted to the MedSurg floor, underwent IV hydration. His Bumex was held. Patient has history of liver cirrhosis and has been getting outpatient paracentesis 1 to 2 weeks. Nephrology and GI were consulted. Patient's SAG gradient was 0.9 suggestive of known portal hypertension. There was concern for possible hepatorenal syndrome. Patient received a tunneled dialysis catheter on 09/26/21. He was started on dialysis. He continues to have paracentesis in the hospital with IV albumin afterwards. He was started on midodrine for relative hypotension, lactulose and rifaximin. Patient was seen by PT and OT and skilled for discharge to care home facility. He did have paracentesis on the day of discharge. About 6 .9 L of fluid was removed. Patient did receive albumin IV. He will follow-up in the outpatient for weekly paracentesis. Physical Exam Narrative Physical exam: General: Alert, oriented x3, not pale, not jaundiced HEENT: Atraumatic Oral: Moist Mucosa Neck: Supple Lungs: Diminished to auscultation Cardiovascular: HS I+II, regular, no murmurs Abdomen: Bowel Sounds Present, Soft, Non Tender, distended, ascites ++ Extremities: Generalized edema, bilateral pedal edema +2, evidence of improvement with skin wrinkling Skin: Multiple bruises, abrasions, ecchymosis all over the body and extremities Neurological: Grossly intact Psych/Mental Status: Appropriate Weight / BMI Weight Weight: 76.5 kg Body Mass Index (BMI) 27.8 ABG / Lab / Microbiology Data Result Diagrams: 09/30/21 04:54 10/05/21 06:42 Laboratory: Laboratory Results - last 24 hr 10/05/21 16:06: POC Glucose 264 H 10/05/21 21:52: POC Glucose 225 H 10/06/21 04:55: POC Glucose 131 H 10/06/21 11:39: POC Glucose 257 H D/C Instructions Discharge Diet: 2000 mg Sodium Diet Discharge Activity: Return to Normal Activity Meaningful Use Info Meaningful Use Diagnoses (Choose all that apply): None applicable Discharge Plan Admission Admit Date/Time: 09/21/21 22:28 Primary Reason for Your Visit: SONIA/recurrent ascites Attending Provider: Shelia Gilliam Primary Care Provider: Arash Mendiola Consulting Providers: Celeste Smith ; Sae Connelly ; Devon Busby ; Chon Hernandez ; Zane Mccoy Discharge Orders/Prescriptions Prescriptions: New Virt-Caps 1 mg Capsule 1 cap PO DAILY Qty: 0 0RF calcitriol 0.25 mcg Capsule 0.25 mcg PO DAILY Qty: 0 0RF lactulose 20 gram/30 mL Solution 10 g PO BID Qty: 0 0RF midodrine 5 mg Tablet 20 mg PO TIDCM Qty: 0 0RF Xifaxan 200 mg Tablet 200 mg PO TID Qty: 0 0RF Continued carvedilol 12.5 mg tablet 12.5 mg PO BID Rx Instructions: must administer with a meal/food glipizide 5 mg tablet 5 mg PO BID omeprazole 20 mg capsule,delayed release(DR/EC) 20 mg PO DAILY tamsulosin [Flomax] 0.4 mg capsule 0.4 mg PO BID bumetanide 1 mg tablet 1 tab PO BID atorvastatin 40 mg tablet 40 tab PO QHS Label Comments: TAKE 1 TABLET BY MOUTH ONCE DAILY Referrals / Follow Up: Arash Mendiola MD [Primary Care Provider] - Disposition Disposition (needs filled in before D/C Order can be placed): [facility] Facility Charges/Coding Visit Charges Inpatient E&M: 43354 Disch Hosp
[2021-10-06] MEDS: Lidocaine 2% (20 ml mdv) 20 ML Vial INFILT (13:36)
--- NOTE | 2021-10-06 14:07 | CASEMGMT ---
Addendum entered by Nidhi Schulte 10/06/21 16:23: Social Work Transportation berry picker time changed to 7:00 as pt will not be ready for discharge until that time. Pt, pts and dgt Doris updated on change of time. Phone call to Christina at [facility] and notified that pt will be picked up at 7pm and also that pt will be scheduled for paracentesis on . Updated discharge orders faxed. Nursing notified of discharge time. GATITO Palacios Original Note: Social Work Precert has been obtained from insurance [employer]. Physician notified and pt is ready for discharge today. Pt and family updated and they are agreeable to discharge to [facility] today. 7000 convalescent form completed in [facility]. Orders faxed to [facility]. Transportation arranged with [facility] for 5:00 pickup via cot. Christina at [facility], patient and family and nursing made aware of discharge time. Plan: [facility], skilled level of care under convalescent stay. GATITO Palacios
[2021-10-06] MEDS: 0.9% Saline Lock 10 ML Syringe IV (15:38)
[2021-10-06] MEDS: Albumin Human 25% (100 mL) 25 GM/100 ML BAG IV ×2 (15:41→17:29)
[2021-10-06 16:26] LABS: Bedside Glucose 215 mg/dL (74-106)
--- NOTE | 2021-10-06 18:16 | NURSING ---
REPORT CALLED TO ROMEL AT [facility]
== END 2021-10-06 19:39 | DRG 682 ==
PROVIDERS: Anesthesiology; Family Medicine; Internal Medicine; Internal Medicine Gastroenterology; Internal Medicine Nephrology; Surgery; Admitting Provider Family Medicine; PCP Family Medicine; Visit Provider Internal Medicine
PROC: 02HV33Z Insertion of Infusion Device into Superior Vena Cava, Percutaneous Approach (ICD-10-PCS; principal; 2021-09-27 08:00)
DX: N17.9 Acute kidney failure, unspecified (principal); K76.7 Hepatorenal syndrome; I13.0 Hypertensive heart and chronic kidney disease with heart failure and stage 1 through stage 4 chronic kidney disease, or unspecified chronic kidney disease; I42.9 Cardiomyopathy, unspecified; I50.22 Chronic systolic (congestive) heart failure; K76.6 Portal hypertension; R18.8 Other ascites; D63.8 Anemia in other chronic diseases classified elsewhere; E83.39 Other disorders of phosphorus metabolism; I95.9 Hypotension, unspecified; K74.60 Unspecified cirrhosis of liver; E11.22 Type 2 diabetes mellitus with diabetic chronic kidney disease; N18.4 Chronic kidney disease, stage 4 (severe); N25.81 Secondary hyperparathyroidism of renal origin; I25.5 Ischemic cardiomyopathy; I25.10 Atherosclerotic heart disease of native coronary artery without angina pectoris; K21.9 Gastro-esophageal reflux disease without esophagitis; I25.2 Old myocardial infarction; S40.022A Contusion of left upper arm, initial encounter; W19.XXXA Unspecified fall, initial encounter; N40.0 Benign prostatic hyperplasia without lower urinary tract symptoms; F32.A Depression, unspecified; Z95.810 Presence of automatic (implantable) cardiac defibrillator; Z86.73 Personal history of transient ischemic attack (TIA), and cerebral infarction without residual deficits; Z79.84 Long term (current) use of oral hypoglycemic drugs; Z79.899 Other long term (current) drug therapy; Z87.891 Personal history of nicotine dependence; Z95.1 Presence of aortocoronary bypass graft; R53.81 Other malaise; Y92.531 Health care provider office as the place of occurrence of the external cause
CPT/HCPCS: 36415; 49083; 71045; 74176; 76770; 77001; 80048; 80053; 80069; 80074; 80076; 82105; 82140; 82378; 82570; 82728; 82784; 82962; 83036; 83516; 83540; 83550; 83735; 83970; 84100; 84157; 84165; 84300; 85025; 85610; 85730; 86225; 86235; 86301; 86334; 87426; 88108; 88305; 88313; 88341; 88342; 90937; 93005; 97110; 97162; 97167; 97530; 97535; 97802; 97803; J7030; J7040; J7120; P9047; A4216; G0257; J1940; J2354; J2916; Q5106

== ENCOUNTER → 2021-10-08 | Outpatient (CLI) | payer MEDICARE, MEDICAID, SELFPAY ==
--- NOTE | 2021-10-08 13:08 | US_ITS ---
PROCEDURE: Ultrasound guided paracentesis. DATE OF EXAMINATION: 10/08/2021. INDICATION: Male, 85 years old. Ascites. PHYSICIAN: Pantera Sultana M.D. TECHNIQUE: The risks, benefits, and alternatives to the procedure were explained to the patient. The specific risks of bleeding, infection, and damage to bowel were detailed and accepted. Witnessed informed consent was obtained. The abdomen was ultrasonographically surveyed. An appropriate pocket of fluid was identified at the right lower quadrant. The skin were cleaned and prepped in the usual sterile fashion. Using ultrasound guidance, the peritoneal cavity was accessed with a 5-Mexican paracentesis needle/catheter system. The trocar was removed. A total of 3350 ml of deshaun-colored fluid were removed from the peritoneal cavity. The catheter was removed and a sterile dressing was applied. The procedure was well tolerated. US/Paracentesis with US IMPRESSION: Ultrasound guided paracentesis. Electronically Signed: Pantera Sultana MD at 14:55 EDT ,
[2021-10-08 13:11] VITALS: BP 100/55; BP 90/80; BP 97/52; PULSE 83; PULSE 84; PULSE 89; RESP 20; RESP 28; O2SAT 97; O2SAT 98
[2021-10-08] MEDS: Lidocaine 2% (20 ml mdv) 20 ML Vial INFILT (13:58)
== END | disposition home or self-care (01) ==
LOC: US 12:45
PROVIDERS: PCP Family Medicine; Referring Provider Internal Medicine Gastroenterology; Visit Provider Internal Medicine Gastroenterology
DX: K74.60 Unspecified cirrhosis of liver (principal)
CPT/HCPCS: 49083

== ENCOUNTER → 2021-10-15 | Outpatient (REF) | payer MEDICARE, MEDICAID, SELFPAY ==
[2021-10-15 09:48] LABS: Absolute Lymphocyte Count 1.19 X10^3/uL (0.83-4.51); Absolute Neutrophil Count 2.7 X10^3/uL (2.0-7.7); Basophil# 0.01 X10^3/uL; Basophil% 0.2 % (0-1); Eosinophil# 0.13 X10^3/uL; Eosinophils% 2.8 % (0-5); Hematocrit 32.7 % (40-54); Hemoglobin 10.4 g/dL (13.0-16.5); Lymphocyte # 1.19 X10^3/ul (0.83-4.51); Lymphocyte % 25.2 % (19-41); Mean Corp Hgb Conc 31.8 g/dL (32-36); Mean Corpuscular Hgb 32.7 pg (27.0-32.0); Mean Corpuscular Volume 102.8 fL (80-94); Mean Platelet Vol. 11.2 fl (6.2-12.0); Monocyte# 0.69 X10^3/uL; Monocyte% 14.6 % (0-10); NRBC Flagged by Analyzer 0 % (0-5); Neutrophil # 2.68 X10^3/uL (2.7-7.7); Neutrophil % 56.8 % (47-70); Platelet Count 103 K/mm3 (150-450); RBC Distribution Width CV 14.8 % (11.6-14.6); RBC Distribution Width SD 56.8 fl (35.1-43.9); Red Blood Count 3.18 M/mm3 (4.6-6.2); White Blood Count 4.7 K/mm3 (4.4-11.0)
[2021-10-15 10:04] LABS: ALB/GLOB Ratio 0.9 RATIO (0.9-2.4); AST(SGOT) 74 U/L (15-37); Alanine Aminotransfer ALT/SGPT 66 U/L (16-61); Albumin, Serum 2.7 g/dL (3.2-5.0); Alkaline Phosphatase 500 U/L (45-117); Anion Gap 4 (5-15); BUN 23 mg/dL (7-18); Calcium,Total 8.1 mg/dL (8.5-10.1); Chloride 100 mmol/L (98-107); Creatinine, Serum 3.82 mg/dL (0.70-1.30); EST Glomerular Filtration Rate 16 mL/min (>60); Est Glom Filt Rate - Afr Amer 19 mL/min (>60); Globulin 2.9 g/dL (2.2-4.2); Glucose 226 mg/dL (74-106); Potassium 4.6 mmol/L (3.5-5.1); Protein, Total 5.6 g/dL (6.4-8.2); Sodium Level 138 mmol/L (136-145)
== END ==
LOC: OLS.WHLTCC 04:00
PROVIDERS: PCP Family Medicine; Visit Provider Family Medicine
DX: K70.31 Alcoholic cirrhosis of liver with ascites (principal); N17.9 Acute kidney failure, unspecified; M62.81 Muscle weakness (generalized); R26.2 Difficulty in walking, not elsewhere classified; R27.8 Other lack of coordination
CPT/HCPCS: 36415; 80053; 82140; 85025

== ENCOUNTER → 2021-10-20 | Outpatient (CLI) | payer MEDICARE, MEDICAID, SELFPAY ==
--- NOTE | 2021-10-20 12:16 | US_ITS ---
PROCEDURE: Ultrasound guided paracentesis. DATE OF EXAMINATION: 10/20/2021. INDICATION: Male, 85 years old. Ascites. PHYSICIAN: Pantera Sultana M.D. TECHNIQUE: The risks, benefits, and alternatives to the procedure were explained to the patient. The specific risks of bleeding, infection, and damage to bowel were detailed and accepted. Witnessed informed consent was obtained. The abdomen was ultrasonographically surveyed. An appropriate pocket of fluid was identified at the right lower quadrant. The skin were cleaned and prepped in the usual sterile fashion. Using ultrasound guidance, the peritoneal cavity was accessed with a 5-Nigerien paracentesis needle/catheter system. The trocar was removed. A total of 6900 ml of deshaun-colored fluid were removed from the peritoneal cavity. The catheter was removed and a sterile dressing was applied. The procedure was well tolerated. US/Paracentesis with US IMPRESSION: Ultrasound guided paracentesis. Electronically Signed: Pantera Sultana MD at 14:04 EDT ,
[2021-10-20] MEDS: Lidocaine 2% (10 ml mdv) 10 ML Vial INFILT (12:36)
[2021-10-20 13:32] VITALS: BP 117/52; BP 129/56; BP 130/54; BP 139/57; PULSE 75; PULSE 82; PULSE 83; PULSE 85; RESP 18; TEMP 37.1; O2SAT 97; O2SAT 98; O2SAT 99
== END | disposition home or self-care (01) ==
LOC: US 12:11
PROVIDERS: PCP Family Medicine; Referring Provider Internal Medicine Gastroenterology; Visit Provider Internal Medicine Gastroenterology
DX: K74.60 Unspecified cirrhosis of liver (principal)
CPT/HCPCS: 49083

== ENCOUNTER → 2021-10-27 | Outpatient (CLI) | payer MEDICARE, MEDICAID, SELFPAY ==
--- NOTE | 2021-10-27 12:27 | US_ITS ---
PROCEDURE: Ultrasound guided paracentesis. DATE OF EXAMINATION: 10/27/2021. INDICATION: Male, 85 years old. Ascites. PHYSICIAN: Pantera Sultana M.D. TECHNIQUE: The risks, benefits, and alternatives to the procedure were explained to the patient. The specific risks of bleeding, infection, and damage to bowel were detailed and accepted. Witnessed informed consent was obtained. The abdomen was ultrasonographically surveyed. An appropriate pocket of fluid was identified at the right lower quadrant. The skin were cleaned and prepped in the usual sterile fashion. Using ultrasound guidance, the peritoneal cavity was accessed with a 5-Iraqi paracentesis needle/catheter system. The trocar was removed. A total of 5100 ml of deshaun-colored fluid were removed from the peritoneal cavity. The catheter was removed and a sterile dressing was applied. The procedure was well tolerated. US/Paracentesis with US IMPRESSION: Ultrasound guided paracentesis. Electronically Signed: Pantera Sultana MD at 13:52 EDT ,
[2021-10-27 12:39] VITALS: BP 109/49; BP 111/55; BP 112/54; BP 119/48; PULSE 68; PULSE 74; PULSE 84; PULSE 85; RESP 14; RESP 16; RESP 18; TEMP 36.1; O2SAT 100; O2SAT 98; O2SAT 99
[2021-10-27] MEDS: Lidocaine 2% (10 ml mdv) 10 ML Vial INFILT (14:18)
== END | disposition home or self-care (01) ==
PROVIDERS: PCP Family Medicine; Referring Provider Internal Medicine Gastroenterology; Visit Provider Internal Medicine Gastroenterology
DX: R18.8 Other ascites (principal)
CPT/HCPCS: 49083; P9047

== ENCOUNTER 2021-11-17 09:03 | Inpatient (IN) | payer MEDICARE, MEDICAID, SELFPAY ==
[2021-11-17] VITALS (13 sets, daily range): BP systolic 80–132; BP diastolic 51–75; PULSE 70–96; RESP 16–24; TEMP 36.3–36.8; O2SAT 92–100; BMI 26.7; BMI 24.8
[2021-11-17 09:35] LABS: Bedside Glucose 37 mg/dL (74-106)
[2021-11-17] MEDS: Dextrose 10%-Water 250 ML 999 ML IV (09:45)
[2021-11-17 10:10] LABS: Bedside Glucose 121 mg/dL (74-106)
--- NOTE | 2021-11-17 10:10 | RAD_ITS ---
INDICATION: CAD EXAMINATION/TECHNIQUE: X-RAY - XR Chest 1 View COMPARISON: 09/27/2021 FINDINGS: LINES/DEVICES: AICD visualized in the left chest with 2 leads in the heart. Right IJ dialysis catheter visualizes tip in SVC. Left atrial appendage clip seen in position. Sternal wires are seen. LUNGS: Peribronchial cuffing bilateral hilar prominence is seen, prominence of the bronchovascular markings visualized, opacification visualized in the left lower lung field obscuring the left costophrenic angle with fluid levels consistent with left pleural effusion, no evidence of right pleural effusion the right costophrenic angle is clear. No evidence of pneumothorax or parenchymal lung mass. MEDIASTINUM AND CARDIOVASCULAR STRUCTURES: Cardiac silhouette not enlarged. BONES AND SOFT TISSUES: Degenerative bone changes seen. RAD/Chest 1 View (Portable) IMPRESSION: Left pleural effusion, cannot rule out underlying pathology. Electronically Signed: Ranulfo Leblanc MD at 10:31 EDT ,
[2021-11-17 10:15] LABS: Absolute Lymphocyte Count 0.81 X10^3/uL (0.83-4.51); Absolute Neutrophil Count 7.3 X10^3/uL (2.0-7.7); Basophil# 0.01 X10^3/uL; Basophil% 0.1 % (0-1); Eosinophil# 0.05 X10^3/uL; Eosinophils% 0.5 % (0-5); Hematocrit 32.2 % (40-54); Hemoglobin 10.4 g/dL (13.0-16.5); Lymphocyte # 0.81 X10^3/ul (0.83-4.51); Lymphocyte % 8.9 % (19-41); Mean Corp Hgb Conc 32.3 g/dL (32-36); Mean Corpuscular Volume 99.1 fL (80-94); Mean Platelet Vol. 10.1 fl (6.2-12.0); Monocyte# 0.95 X10^3/uL; Monocyte% 10.4 % (0-10); NRBC Flagged by Analyzer 0 % (0-5); Neutrophil # 7.29 X10^3/uL (2.7-7.7); Neutrophil % 79.7 % (47-70); Platelet Count 107 K/mm3 (150-450); RBC Distribution Width CV 15.2 % (11.6-14.6); RBC Distribution Width SD 55.7 fl (35.1-43.9); Red Blood Count 3.25 M/mm3 (4.6-6.2); White Blood Count 9.2 K/mm3 (4.4-11.0)
[2021-11-17 10:28] LABS: ALB/GLOB Ratio 0.6 RATIO (0.9-2.4); AST(SGOT) 45 U/L (15-37); Alanine Aminotransfer ALT/SGPT 15 U/L (16-61); Albumin, Serum 1.8 g/dL (3.2-5.0); Alkaline Phosphatase 337 U/L (45-117); Anion Gap 6 (5-15); BUN 23 mg/dL (7-18); BUN/Creat Ratio 6.7 RATIO (10-20); Calcium,Total 7.9 mg/dL (8.5-10.1); Chloride 98 mmol/L (98-107); Creatinine, Serum 3.44 mg/dL (0.70-1.30); EST Glomerular Filtration Rate 18 mL/min (>60); Est Glom Filt Rate - Afr Amer 22 mL/min (>60); Estimated Creatinine Clearance 16.21 ml/min; Globulin 2.8 g/dL (2.2-4.2); Glucose 218 mg/dL (74-106); Potassium 3.8 mmol/L (3.5-5.1); Protein, Total 4.6 g/dL (6.4-8.2); Sodium Level 135 mmol/L (136-145)
--- NOTE | 2021-11-17 10:41 | EDS_ITS ---
HPI History of Present Illness Chief Complaint: Hypoglycemia Narrative Narrative: History and physical is limited secondary to patient condition. Patient presents via EMS with hypoglycemia. He was supposed to be getting an outpatient paracentesis today. He is at [facility]. Blood sugar was noted in the 40s. He was administered glucagon by EMS. They could not establish IV access. He will open his eyes to voice, but presents because of the hypoglycemia. There has been no reported nausea or vomiting. No other symptoms reported. [facility] Medical History (Updated 11/17/21 @ 16:02 by Tee Rosario MD) Abdominal ascites Acute insomnia Atherosclerotic heart disease of [place] coronary artery without angina pectoris Benign prostatic hyperplasia without lower urinary tract symptoms Cardiomyopathy, unspecified Chronic kidney disease, stage 3 unspecified Cirrhosis Coronary artery disease Depression Diabetes ESRD (end stage renal disease) Essential (primary) hypertension Former smoker GERD (gastroesophageal reflux disease) Heart failure, unspecified Hiatal hernia Hypertension ICD (implantable cardioverter-defibrillator) in place Insomnia Irregular heart beat Myocardial infarct Pressure ulcer, buttock Stroke/cerebrovascular accident Transient cerebral ischemic attack, unspecified Type 2 diabetes mellitus Unspecified atrial fibrillation Home Medications carvedilol 12.5 mg tablet 12.5 mg PO BID HEART 07/02/21 [History Last Taken 11/16/21] glipizide 5 mg tablet 5 mg PO BID DIABETES 07/02/21 [History Last Taken 11/16/21] omeprazole 20 mg capsule,delayed release 20 mg PO DAILY GERD 07/02/21 [History Last Taken 11/16/21] tamsulosin 0.4 mg capsule (Flomax) 0.4 mg PO DAILY URINATION 07/02/21 [History Last Taken 11/16/21] atorvastatin 40 mg tablet 40 tab PO DAILY@0800 CHOLESTEROL 09/21/21 [History Last Taken 11/16/21] bumetanide 1 mg tablet 1 tab PO BID WATER PILL 09/21/21 [History Last Taken 11/16/21] aspirin 81 mg tablet,delayed release 81 mg PO DAILY HEALTH 11/17/21 [History Last Taken 11/17/21] cefdinir 300 mg capsule 300 mg PO DAILY FEMUR 11/17/21 [History Last Taken 11/16/21] doxycycline monohydrate 100 mg capsule 100 mg PO BID FEMUR 11/17/21 [History Last Taken 11/16/21] oxycodone-acetaminophen 5 mg-325 mg tablet (Percocet) 1 tab PO Q4H PRN Pain 11/17/21 [History Last Taken 11/15/21] potassium chloride 10 mEq capsule,extended release 10 meq PO DAILY SUPPLEMENT 11/17/21 [History Last Taken 11/16/21] vitamins A,C,Y-bglt-hijzcc 2,148 mcg-113 mg-45 mg-17.4 mg tablet (PreserVision AREDS) 2 tab PO BID EYE HEALTH 11/17/21 [History Last Taken 11/16/21] Allergy/AdvReac Type Severity Reaction Status Date / Time bethanechol Allergy NEEDS Verified 11/17/21 09:33 FOLLOW-UP Family History Mother Bladder cancer Surgical History History of hip surgery Hx of CABG Social History Smoking Status: Former smoker alcohol intake: current alcohol intake frequency: 0-2 drinks per day ROS ROS ED ROS Narrative Unable to obtain secondary to mental status. Review of Systems ROS Unobtainable: due to mental status EXAM Physical Exam Narrative Exam Narrative: Afebrile. Vital signs noted. HEENT: Normocephalic. Atraumatic. PERRL, EOMI. Neck soft and supple. No point tenderness or step off. Cardiovascular: Regular rate and rhythm. No murmurs, rubs, or gallops appreciated. Respiratory: No tachypnea. Lungs clear to auscultation bilaterally. Gastrointestinal: Abdomen soft, nontender, with normoactive bowel sounds. Positive distention. No rebound or guarding. Neurological: Opens eyes to voice. Nonfocal, nonlateralizing. Skin: No rash. Large ecchymosis left flank Musculoskeletal: No pedal edema. Full range of motion extremities. Const Vital Signs: 11/17/21 09:08 11/17/21 09:33 11/17/21 09:37 Temperature 97.4 F L Temperature Source Temporal Pulse Rate 77 74 Respiratory Rate 18 24 H Respiratory Effort Labored Respiratory Pattern Hyperpnea Blood Pressure 85/55 L 86/52 L Blood Pressure Mean 65 63 Pulse Ox 94 92 Oxygen Delivery Method Room Air Room Air Oxygen Flow Rate (L/min) 11/17/21 10:05 11/17/21 11:00 11/17/21 12:10 Temperature 97.6 F L Temperature Source Temporal Pulse Rate 76 70 78 Respiratory Rate 17 20 H 17 Respiratory Effort Respiratory Pattern Blood Pressure 100/51 L 80/55 L 87/73 L Blood Pressure Mean 67 63 77 Pulse Ox 100 97 98 Oxygen Delivery Method Nasal Cannula Nasal Cannula Nasal Cannula Oxygen Flow Rate (L/min) 2 2 2 11/17/21 13:20 Temperature Temperature Source Pulse Rate 77 Respiratory Rate 21 H Respiratory Effort Respiratory Pattern Blood Pressure 84/60 L Blood Pressure Mean 68 Pulse Ox 98 Oxygen Delivery Method Nasal Cannula Oxygen Flow Rate (L/min) 2 MDM MDM MDM Narrative Medical decision making narrative: IV access was obtained. He was administered D50 intravenously. He was also administered D5 at 40 mL/h. Laboratory results show normal white count of 9.2 with hemoglobin stable at 10.4, platelet count thrombocytopenic at 107. Second [id number] glucose 121. He has creatinine elevated at 3.44, but history of chronic kidney disease. BUN of 23 with sodium 135. Chest x-ray interpreted by myself shows left pleural effusion but no acute pneumothorax or other pathology. Of course, pneumonia cannot be ruled out. Apparently, patient still makes urine. He has greater than 100 WBCs. He will be given Rocephin and urine sent for culture. Given his persistent hypoglycemia, urinary tract infection, mental status change, his paracentesis was deferred. He remains hypotensive but is awake and alert and eating. He did take medication in the past for low blood pressure but currently it is not listed on his medication list at the long-term facility. I discussed the patient with Dr. Pugh for admission. He will admit him to the PCU in stable condition. Lab Data Attestation: I reviewed the patient's lab results. Labs: Laboratory Results - last 24 hr 11/17/21 11/17/21 11/17/21 09:15 09:52 10:00 WBC 9.2 RBC 3.25 L Hgb 10.4 L Hct 32.2 L MCV 99.1 H MCH 32.0 MCHC 32.3 RDW Std Deviation 55.7 H RDW Coeff of Jewels 15.2 H Plt Count 107 L MPV 10.1 Immature Gran % (Auto) 0.400 Neut % (Auto) 79.7 H Lymph % (Auto) 8.9 L Cabell % (Auto) 10.4 H Eos % (Auto) 0.5 Baso % (Auto) 0.1 Absolute Neuts (auto) 7.3 Absolute Lymphs (auto) 0.81 L Nucleated RBC % 0 Sodium Potassium Chloride Carbon Dioxide Anion Gap BUN Creatinine Estim Creat Clear Calc Est GFR (MDRD) Af Amer Est GFR (MDRD) Non-Af BUN/Creatinine Ratio Glucose Lactic Acid Calcium Total Bilirubin AST ALT Alkaline Phosphatase Total Protein Albumin Globulin Albumin/Globulin Ratio Urine Color Urine Clarity Urine pH Ur Specific Naylor Urine Protein Urine Glucose (UA) Urine Ketones Urine Occult Blood Urine Nitrite Urine Bilirubin Urine Urobilinogen Ur Leukocyte Esterase Urine RBC Urine WBC Ur Squamous Epith Cells Urine Bacteria Urine Mucus POC Glucose 37 L* 121 H 11/17/21 11/17/21 11/17/21 10:00 10:00 10:08 WBC RBC Hgb Hct MCV MCH MCHC RDW Std Deviation RDW Coeff of Jewels Plt Count MPV Immature Gran % (Auto) Neut % (Auto) Lymph % (Auto) Cabell % (Auto) Eos % (Auto) Baso % (Auto) Absolute Neuts (auto) Absolute Lymphs (auto) Nucleated RBC % Sodium 135 L Potassium 3.8 Chloride 98 Carbon Dioxide 31.0 Anion Gap 6 BUN 23 H Creatinine 3.44 H Estim Creat Clear Calc 16.21 Est GFR (MDRD) Af Amer 22 L Est GFR (MDRD) Non-Af 18 L BUN/Creatinine Ratio 6.7 L Glucose 218 H Lactic Acid 1.2 Calcium 7.9 L Total Bilirubin 1.00 AST 45 H ALT 15 L Alkaline Phosphatase 337 H Total Protein 4.6 L Albumin 1.8 L Globulin 2.8 Albumin/Globulin Ratio 0.6 L Urine Color Urine Clarity Urine pH Ur Specific Naylor Urine Protein Urine Glucose (UA) Urine Ketones Urine Occult Blood Urine Nitrite Urine Bilirubin Urine Urobilinogen Ur Leukocyte Esterase Urine RBC Urine WBC Ur Squamous Epith Cells Urine Bacteria Urine Mucus POC Glucose 110 H 11/17/21 11/17/21 11/17/21 10:43 11:36 11:45 WBC RBC Hgb Hct MCV MCH MCHC RDW Std Deviation RDW Coeff of Jewels Plt Count MPV Immature Gran % (Auto) Neut % (Auto) Lymph % (Auto) Cabell % (Auto) Eos % (Auto) Baso % (Auto) Absolute Neuts (auto) Absolute Lymphs (auto) Nucleated RBC % Sodium Potassium Chloride Carbon Dioxide Anion Gap BUN Creatinine Estim Creat Clear Calc Est GFR (MDRD) Af Amer Est GFR (MDRD) Non-Af BUN/Creatinine Ratio Glucose Lactic Acid Calcium Total Bilirubin AST ALT Alkaline Phosphatase Total Protein Albumin Globulin Albumin/Globulin Ratio Urine Color Yellow Urine Clarity Turbid Urine pH 5.0 Ur Specific Naylor 1.020 Urine Protein 100 H Urine Glucose (UA) Normal Urine Ketones 15 H Urine Occult Blood 250 H Urine Nitrite Negative Urine Bilirubin 3 H Urine Urobilinogen Normal Ur Leukocyte Esterase 500 H Urine RBC 0 SEEN Urine WBC >100 SEEN Ur Squamous Epith Cells 0 SEEN Urine Bacteria 0 SEEN Urine Mucus 0 SEEN POC Glucose 103 82 11/17/21 12:41 WBC RBC Hgb Hct MCV MCH MCHC RDW Std Deviation RDW Coeff of Jewels Plt Count MPV Immature Gran % (Auto) Neut % (Auto) Lymph % (Auto) Cabell % (Auto) Eos % (Auto) Baso % (Auto) Absolute Neuts (auto) Absolute Lymphs (auto) Nucleated RBC % Sodium Potassium Chloride Carbon Dioxide Anion Gap BUN Creatinine Estim Creat Clear Calc Est GFR (MDRD) Af Amer Est GFR (MDRD) Non-Af BUN/Creatinine Ratio Glucose Lactic Acid Calcium Total Bilirubin AST ALT Alkaline Phosphatase Total Protein Albumin Globulin Albumin/Globulin Ratio Urine Color Urine Clarity Urine pH Ur Specific Naylor Urine Protein Urine Glucose (UA) Urine Ketones Urine Occult Blood Urine Nitrite Urine Bilirubin Urine Urobilinogen Ur Leukocyte Esterase Urine RBC Urine WBC Ur Squamous Epith Cells Urine Bacteria Urine Mucus POC Glucose 95 Radiography Diagnostic Testing: Clinical Impression(s) from Imaging Studies Chest X-Ray 11/17/21 10:10 IMPRESSION: Left pleural effusion, cannot rule out underlying pathology. Electronically Signed: Ranulfo Leblanc MD at 10:31 EDT Reading Location ID and State: [facility] / [place] Tel , Service support , Discharge Plan Dx/Rx/DC Orders Clinical Impression: Ascites, Cirrhosis, Hypotension, Hypoglycemia, UTI (urinary tract infection) Disposition Disposition: Acute Care Hospital [facility] Discharge Date/Time: 11/17/21 14:41
[2021-11-17 10:42] LABS: Lactic Acid 1.2 mmol/L (0.4-1.9)
[2021-11-17] MEDS: Dextrose 5%/0.9% NaCl 1,000 ML 40 ML IV (10:52)
[2021-11-17 11:41] LABS: Bacteria 0 SEEN /hpf (None Seen); Mucous, Urine 0 SEEN /hpf (<or=2+); Red Blood Cells-Urine 0 SEEN /hpf (0-5); Squamous Epithelial Cells - UA 0 SEEN /hpf (0-5)
[2021-11-17 11:44] LABS: Color, Urine Yellow (Yellow); Glucose, Dipstick Normal (Normal); Ketone-Dipstick 15 mg/dl (Negative); Leukocyte Esterase-Dipstick 500 /ul (Negative); Nitrite-Dipstick Negative (Negative); Occult Blood-Urine 250 /ul (Negative); Protein-Dipstick 100 mg/dl (Negative); Urine Bilirubin Dipstick 3 mg/dL (Negative); Urine Clarity Turbid (Clear); Urine Urobilinogen Normal (Normal)
[2021-11-17 11:49] LABS: White Blood Cells >100 SEEN /hpf (0-5)
[2021-11-17] MEDS: Ceftriaxone 1 GM/50 ML BAG IV (12:59)
[2021-11-17 13:01] LABS: Bedside Glucose 110 mg/dL (74-106)
[2021-11-17 13:01] LABS: Bedside Glucose 95 mg/dL (74-106)
[2021-11-17 13:01] LABS: Bedside Glucose 103 mg/dL (74-106)
[2021-11-17 13:01] LABS: Bedside Glucose 82 mg/dL (74-106)
--- NOTE | 2021-11-17 13:02 | NURSING ---
hospitalist for dr blake
--- NOTE | 2021-11-17 13:40 | HP.PCM.HOS_ITS ---
[facility] - General General Date of Service: 11/17/21 Chief Complaint: lethargy HPI Narrative ELENA PAZ, is a 85 M who presents presents with lethargy. His glucose was checked and was noted to be in the 40s. Patient received glucagon through EMS and patient was sent to the emergency room. Blood sugar was noted to be in the 30s. Patient received an amp of D50 and then started on D5. Family is present and much of the history is obtained to the given the patient's listlessness. Patient had not been eating for the past day and a half. Patient was scheduled to have paracentesis today but that was held given the current situation. ON LICENSE OF [facility] Medical History (Updated 11/17/21 @ 13:[address] Gumaro Pugh, DO) Abdominal ascites Acute insomnia Atherosclerotic heart disease of [place] coronary artery without angina pectoris Benign prostatic hyperplasia without lower urinary tract symptoms Cardiomyopathy, unspecified Chronic kidney disease, stage 3 unspecified Cirrhosis Coronary artery disease Depression Diabetes ESRD (end stage renal disease) Essential (primary) hypertension Former smoker GERD (gastroesophageal reflux disease) Heart failure, unspecified Hiatal hernia Hypertension ICD (implantable cardioverter-defibrillator) in place Insomnia Irregular heart beat Myocardial infarct Pressure ulcer, buttock Stroke/cerebrovascular accident Transient cerebral ischemic attack, unspecified Type 2 diabetes mellitus Unspecified atrial fibrillation Home Medications carvedilol 12.5 mg tablet 12.5 mg PO BID HEART 07/02/21 [History Last Taken 09/21/21 07:00] glipizide 5 mg tablet 5 mg PO BID DIABETES 07/02/21 [History Last Taken 09/21/21 07:00] omeprazole 20 mg capsule,delayed release 20 mg PO DAILY GERD 07/02/21 [History Last Taken Unknown] tamsulosin 0.4 mg capsule (Flomax) 0.4 mg PO BID URINATION 07/02/21 [History Last Taken 09/20/21 21:00] atorvastatin 40 mg tablet 40 tab PO QHS CHOLESTEROL 09/21/21 [History Last Taken 09/20/21 21:00] bumetanide 1 mg tablet 1 tab PO BID WATER PILL 09/21/21 [History Last Taken 09/21/21 07:00] aspirin 81 mg tablet,delayed release 81 mg PO DAILY 11/17/21 [History Last Taken Unknown] cefdinir 300 mg capsule 600 mg PO DAILY 11/17/21 [History Last Taken Unknown] potassium chloride 10 mEq capsule,extended release 10 meq PO DAILY 11/17/21 [History Last Taken Unknown] Allergy/AdvReac Type Severity Reaction Status Date / Time bethanechol Allergy NEEDS Verified 11/17/21 09:33 FOLLOW-UP Family History Mother Bladder cancer Surgical History History of hip surgery Hx of CABG Social History Smoking Status: Former smoker alcohol intake: current alcohol intake frequency: 0-2 drinks per day ROS ROS Narrative Lower extremity edema. Abdominal distention. All review of systems were negative except as mentioned above in the history of present illness and the other review of systems. Vital Signs Vital Signs Vital Signs: 11/17/21 09:08 11/17/21 09:33 11/17/21 09:37 Temperature 36.3 C L Temperature Source Temporal Pulse Rate 77 74 Respiratory Rate 18 24 H Respiratory Effort Labored Respiratory Pattern Hyperpnea Blood Pressure 85/55 L 86/52 L Blood Pressure Mean 65 63 Pulse Ox 94 92 Oxygen Delivery Method Room Air Room Air Oxygen Flow Rate (L/min) 11/17/21 10:05 11/17/21 11:00 11/17/21 12:10 Temperature 36.4 C L Temperature Source Temporal Pulse Rate 76 70 78 Respiratory Rate 17 20 H 17 Respiratory Effort Respiratory Pattern Blood Pressure 100/51 L 80/55 L 87/73 L Blood Pressure Mean 67 63 77 Pulse Ox 100 97 98 Oxygen Delivery Method Nasal Cannula Nasal Cannula Nasal Cannula Oxygen Flow Rate (L/min) 2 2 2 11/17/21 13:20 Temperature Temperature Source Pulse Rate 77 Respiratory Rate 21 H Respiratory Effort Respiratory Pattern Blood Pressure 84/60 L Blood Pressure Mean 68 Pulse Ox 98 Oxygen Delivery Method Nasal Cannula Oxygen Flow Rate (L/min) 2 Weight Weight: 84.6 kg Body Mass Index (BMI) 26.7 Physical Exam Const alert and no apparent distress HEENT normocephalic, head/scalp atraumatic, hearing grossly normal bilaterally and moist oral mucous membranes Neck no lymphadenopathy Resp normal respiratory effort, no retractions, no use of accessory muscles and clear to auscultation bilaterally Cardio regular rate, regular rhythm, S1 normal heart sound and S2 normal heart sound GI GI Narrative: Abdominal distention. Nontender. Extremity Extremity Narrative: 3+ bilateral lower extremity edema. Results Lab / Micro Data Result Diagrams: 11/17/21 10:00 11/17/21 10:00 Labs: Laboratory Results - last 24 hr 11/17/21 09:15: POC Glucose 37 L* 11/17/21 09:52: POC Glucose 121 H 11/17/21 10:00: WBC 9.2, RBC 3.25 L, Hgb 10.4 L, Hct 32.2 L, MCV 99.1 H, MCH 32.0, MCHC 32.3, RDW Std Deviation 55.7 H, RDW Coeff of Jewels 15.2 H, Plt Count 107 L, MPV 10.1, Immature Gran % (Auto) 0.400, Neut % (Auto) 79.7 H, Lymph % (Auto) 8.9 L, [place] % (Auto) 10.4 H, Eos % (Auto) 0.5, Baso % (Auto) 0.1, Absolute Neuts (auto) 7.3, Absolute Lymphs (auto) 0.81 L, Nucleated RBC % 0 11/17/21 10:00: Sodium 135 L, Potassium 3.8, Chloride 98, Carbon Dioxide 31.0, Anion Gap 6, BUN 23 H, Creatinine 3.44 H, Estim Creat Clear Calc 16.21, Est GFR (MDRD) Af Amer 22 L, Est GFR (MDRD) Non-Af 18 L, BUN/Creatinine Ratio 6.7 L, Glucose 218 H, Calcium 7.9 L, Total Bilirubin 1.00, AST 45 H, ALT 15 L, Alkaline Phosphatase 337 H, Total Protein 4.6 L, Albumin 1.8 L, Globulin 2.8, Albumin/Globulin Ratio 0.6 L 11/17/21 10:00: Lactic Acid 1.2 11/17/21 10:08: POC Glucose 110 H 11/17/21 10:43: POC Glucose 103 11/17/21 11:36: Urine Color Yellow, Urine Clarity Turbid, Urine pH 5.0, Ur Specific [place] 1.020, Urine Protein 100 H, Urine Glucose (UA) Normal, Urine Ketones 15 H, Urine Occult Blood 250 H, Urine Nitrite Negative, Urine Bilirubin 3 H, Urine Urobilinogen Normal, Ur Leukocyte Esterase 500 H, Urine RBC 0 SEEN, Urine WBC >100 SEEN, Ur Squamous Epith Cells 0 SEEN, Urine Bacteria 0 SEEN, Urine Mucus 0 SEEN 11/17/21 11:45: POC Glucose 82 11/17/21 12:41: POC Glucose 95 Radiology Impression Chest X-Ray 11/17/21 10:10 IMPRESSION: Left pleural effusion, cannot rule out underlying pathology. Electronically Signed: Ranulfo Leblanc MD at 10:31 EDT , Assessment & Plan Assessment/Plan (1) Hypoglycemia: PLAN: Likely secondary to glipizide and patient with end-stage renal disease and suspected cirrhosis. Responded well with the glucagon as well as D50. we will patient has yet to receive his D5 normal saline but will continue for now and monitor his blood sugar. (2) Ascites: PLAN: Paracentesis scheduled for today but that will be held. We will reevaluate tomorrow. (3) Hypotension: PLAN: Patient had been on midodrine will resume. Patient's blood pressure normally runs low. (4) Severe protein-calorie malnutrition: PLAN: Consult nutrition Albumin is 1.8 we will give the patient albumin (5) ESRD (end stage renal disease): PLAN: Consult nephrology. DALY Smith. (6) Cirrhosis: PLAN: presumed PLAN: Plan VTE prophylaxis: SCDs CODE STATUS: Addressed with the patient's family. Unsure what they want to do. Told them that patient will be full code until they tell us otherwise. Charges/Coding Visit Charges Inpatient E&M: 25944 Init Hosp L3
--- NOTE | 2021-11-17 13:58 | NURSING ---
Lynn GAUTHIER PERSISTANT HYPOGLYCEMIA, HYPOTENSION, ASCITES
[2021-11-17 14:00] LABS: Bedside Glucose 123 mg/dL (74-106)
[2021-11-17] MEDS: Albumin Human 25% (100 mL) 25 GM/100 ML BAG IV (17:31)
[2021-11-17] MEDS: Multivitamin (Healthy Eyes) Capsule 1 CAP PO (17:47)
[2021-11-17] MEDS: Midodrine HCl 5 MG Tablet 10 MG PO (17:47)
[2021-11-17] MEDS: Tamsulosin HCl 0.4 MG Capsule PO (17:47)
[2021-11-17 18:31] LABS: Bedside Glucose 180 mg/dL (74-106)
[2021-11-17] MEDS: Carvedilol 3.125 MG TABLET PO (21:43)
[2021-11-18] VITALS (18 sets, daily range): BP systolic 72–101; BP diastolic 46–72; PULSE 65–94; RESP 16–20; TEMP 2.6–37.1; O2SAT 96–100
[2021-11-18 05:26] LABS: Absolute Lymphocyte Count 0.96 X10^3/uL (0.83-4.51); Absolute Neutrophil Count 4.1 X10^3/uL (2.0-7.7); Basophil# 0.01 X10^3/uL; Basophil% 0.2 % (0-1); Eosinophil# 0.14 X10^3/uL; Eosinophils% 2.2 % (0-5); Hematocrit 30.5 % (40-54); Hemoglobin 9.6 g/dL (13.0-16.5); Lymphocyte # 0.96 X10^3/ul (0.83-4.51); Lymphocyte % 15.4 % (19-41); Mean Corp Hgb Conc 31.5 g/dL (32-36); Mean Corpuscular Hgb 31.4 pg (27.0-32.0); Mean Corpuscular Volume 99.7 fL (80-94); Mean Platelet Vol. 10.2 fl (6.2-12.0); Monocyte# 1.01 X10^3/uL; Monocyte% 16.2 % (0-10); NRBC Flagged by Analyzer 0 % (0-5); Neutrophil % 65.5 % (47-70); Platelet Count 102 K/mm3 (150-450); RBC Distribution Width CV 15.3 % (11.6-14.6); RBC Distribution Width SD 55.2 fl (35.1-43.9); Red Blood Count 3.06 M/mm3 (4.6-6.2); White Blood Count 6.3 K/mm3 (4.4-11.0)
[2021-11-18 05:52] LABS: ALB/GLOB Ratio 0.8 RATIO (0.9-2.4); AST(SGOT) 41 U/L (15-37); Alanine Aminotransfer ALT/SGPT 18 U/L (16-61); Albumin, Serum 2.2 g/dL (3.2-5.0); Alkaline Phosphatase 349 U/L (45-117); Anion Gap 5 (5-15); BUN 31 mg/dL (7-18); BUN/Creat Ratio 7.6 RATIO (10-20); Calcium,Total 7.6 mg/dL (8.5-10.1); Chloride 98 mmol/L (98-107); Creatinine, Serum 4.07 mg/dL (0.70-1.30); EST Glomerular Filtration Rate 15 mL/min (>60); Est Glom Filt Rate - Afr Amer 18 mL/min (>60); Globulin 2.7 g/dL (2.2-4.2); Glucose 205 mg/dL (74-106); Protein, Total 4.9 g/dL (6.4-8.2); Sodium Level 135 mmol/L (136-145)
[2021-11-18 07:15] LABS: Bedside Glucose 215 mg/dL (74-106)
--- NOTE | 2021-11-18 07:47 | PCM.PN.HOSP ---
Subjective Subjective Low BP today. No further hypoglycemic events. Objective Data Objective Data Vital Signs: Vital Signs Temp Pulse Resp BP Pulse Ox O2 Del Method O2 Flow Rate 36.7 C 85 16 97/69 97 Nasal Cannula 2 11/18/21 03:00 11/18/21 07:05 11/18/21 03:00 11/18/21 03:00 11/18/21 03:00 11/18/21 04:00 11/18/21 04:00 Oxygen Flow Rate (L/min) 2 Oxygen Delivery Method Nasal Cannula Weight: 78.471 kg Body Mass Index (BMI) 24.8 Intake & Output: Intake and Output for Last 24 Hours 11/16/21 11/17/21 11/18/21 23:59 23:59 23:59 Intake Total 620 / 620 Output Total 0 / 0 0 / 0 Balance 620 / 620 0 / 0 Lab / Micro Data Result Diagrams: 11/18/21 05:08 11/18/21 05:08 Labs: Laboratory Results - last 24 hr 11/17/21 09:15: POC Glucose 37 L* 11/17/21 09:52: POC Glucose 121 H 11/17/21 10:00: WBC 9.2, RBC 3.25 L, Hgb 10.4 L, Hct 32.2 L, MCV 99.1 H, MCH 32.0, MCHC 32.3, RDW Std Deviation 55.7 H, RDW Coeff of Jewels 15.2 H, Plt Count 107 L, MPV 10.1, Immature Gran % (Auto) 0.400, Neut % (Auto) 79.7 H, Lymph % (Auto) 8.9 L, [place] % (Auto) 10.4 H, Eos % (Auto) 0.5, Baso % (Auto) 0.1, Absolute Neuts (auto) 7.3, Absolute Lymphs (auto) 0.81 L, Nucleated RBC % 0 11/17/21 10:00: Sodium 135 L, Potassium 3.8, Chloride 98, Carbon Dioxide 31.0, Anion Gap 6, BUN 23 H, Creatinine 3.44 H, Estim Creat Clear Calc 16.21, Est GFR (MDRD) Af Amer 22 L, Est GFR (MDRD) Non-Af 18 L, BUN/Creatinine Ratio 6.7 L, Glucose 218 H, Calcium 7.9 L, Total Bilirubin 1.00, AST 45 H, ALT 15 L, Alkaline Phosphatase 337 H, Total Protein 4.6 L, Albumin 1.8 L, Globulin 2.8, Albumin/Globulin Ratio 0.6 L 11/17/21 10:00: Lactic Acid 1.2 11/17/21 10:08: POC Glucose 110 H 11/17/21 10:43: POC Glucose 103 11/17/21 11:36: Urine Color Yellow, Urine Clarity Turbid, Urine pH 5.0, Ur Specific [place] 1.020, Urine Protein 100 H, Urine Glucose (UA) Normal, Urine Ketones 15 H, Urine Occult Blood 250 H, Urine Nitrite Negative, Urine Bilirubin 3 H, Urine Urobilinogen Normal, Ur Leukocyte Esterase 500 H, Urine RBC 0 SEEN, Urine WBC >100 SEEN, Ur Squamous Epith Cells 0 SEEN, Urine Bacteria 0 SEEN, Urine Mucus 0 SEEN 11/17/21 11:45: POC Glucose 82 11/17/21 12:41: POC Glucose 95 11/17/21 13:39: POC Glucose 123 H 11/17/21 17:09: POC Glucose 180 H 11/18/21 05:08: WBC 6.3, RBC 3.06 L, Hgb 9.6 L, Hct 30.5 L, MCV 99.7 H, MCH 31.4, MCHC 31.5 L, RDW Std Deviation 55.2 H, RDW Coeff of Jewels 15.3 H, Plt Count 102 L, MPV 10.2, Immature Gran % (Auto) 0.500, Neut % (Auto) 65.5, Lymph % (Auto) 15.4 L, [place] % (Auto) 16.2 H, Eos % (Auto) 2.2, Baso % (Auto) 0.2, Absolute Neuts (auto) 4.1, Absolute Lymphs (auto) 0.96, Nucleated RBC % 0 11/18/21 05:08: Sodium 135 L, Potassium 4.0, Chloride 98, Carbon Dioxide 32.0, Anion Gap 5, BUN 31 H, Creatinine 4.07 H, Estim Creat Clear Calc 13.70, Est GFR (MDRD) Af Amer 18 L, Est GFR (MDRD) Non-Af 15 L, BUN/Creatinine Ratio 7.6 L, Glucose 205 H, Calcium 7.6 L, Total Bilirubin 0.80, AST 41 H, ALT 18, Alkaline Phosphatase 349 H, Total Protein 4.9 L, Albumin 2.2 L, Globulin 2.7, Albumin/Globulin Ratio 0.8 L 11/18/21 05:58: POC Glucose 215 H Radiography Diagnostic Testing: Radiology Impression Chest X-Ray 11/17/21 10:10 IMPRESSION: Left pleural effusion, cannot rule out underlying pathology. Electronically Signed: Ranulfo Leblanc MD at 10:31 EDT , Physical Exam Const alert and no apparent distress Constitutional Narrative: cachectic. Resp normal respiratory effort, no retractions, no use of accessory muscles and clear to auscultation bilaterally Cardio regular rate, regular rhythm, S1 normal heart sound and S2 normal heart sound GI GI Narrative: distended. soft. Assessment & Plan Assessment/Plan (1) Hypoglycemia: PLAN: Resolved Likely secondary to glipizide and patient with end-stage renal disease and suspected cirrhosis. Responded well with the glucagon as well as D50. DC D5. Continue to hold glipizide. (2) Ascites: QUALIFIERS: Ascites type: other type Qualified Code(s): R18.8 - Other ascites PLAN: Paracentesis scheduled for 11/17 but was held given hospitalization. Resume bumetanide check INR Given hypotension, HD, will hold on paracentesis today and reevaluate 11/19 (3) Hypotension: QUALIFIERS: Hypotension type: idiopathic hypotension Qualified Code(s): I95.0 - Idiopathic hypotension PLAN: Patient had been on midodrine will resume. Patient's blood pressure normally runs low. BP parameters for Bumex (4) Severe protein-calorie malnutrition: PLAN: Consult nutrition Albumin is 1.8 Pt received albumin 11/17 (5) ESRD (end stage renal disease): PLAN: Consult nephrology. DALY Smith. (6) Cirrhosis: PLAN: presumed follow up with gastroenterology (7) UTI (urinary tract infection): PLAN: UCx thus far showing GNR. on CTX. PLAN: Plan VTE prophylaxis: SCDs CODE STATUS: Addressed with the patient's family. Unsure what they want to do. Told them that patient will be full code until they tell us otherwise. Charges/Coding Visit Charges Inpatient E&M: 67365 Subs Hosp L2
[2021-11-18 08:16] LABS: International Normalized Ratio 1.3; Prothrombin Time (Protime)PT. 16.2 SECONDS (11.7-14.9)
[2021-11-18] MEDS: Multivitamin (Healthy Eyes) Capsule 1 CAP PO ×2 (08:37→17:25)
[2021-11-18] MEDS: 0.9% Saline Lock 10 ML Syringe IV (08:37)
[2021-11-18] MEDS: Ceftriaxone 1 GM/50 ML BAG IV (08:37)
[2021-11-18] MEDS: Midodrine HCl 5 MG Tablet 10 MG PO ×4 (08:37→17:25)
[2021-11-18] MEDS: Pantoprazole Sodium 20 MG Tablet PO (08:37)
--- NOTE | 2021-11-18 09:28 | PCM.CONS.R ---
Assessment & Plan Assessment/Plan (1) CKD stage G5/A2, GFR <15 and albumin creatinine ratio 30- 299 mg/g: PLAN: dialysis MWF at [facility]. Dialysis arranged for today (2) DM2 (diabetes mellitus, type 2): PLAN: pcp mgmt (3) Anemia of chronic disease: PLAN: epo on dialysis (4) Hypoglycemia: PLAN: stable (5) Hypotension: QUALIFIERS: Hypotension type: idiopathic hypotension Qualified Code(s): I95.0 - Idiopathic hypotension PLAN: stable, continue midodrine (6) Ascites: QUALIFIERS: Ascites type: other type Qualified Code(s): R18.8 - Other ascites PLAN: paracentesis weekly (7) Cardiomyopathy: PLAN: anasarca (8) Coronary artery disease: HPI Consult Data Date of Consult: 11/18/21 HPI Narrative Reason for Consultation: CKD Stage 5, dialysis mgmt HPI Narrative: ELENA PAZ, is a 85 [address] [facility] from [facility] for altered mental status, lethargy. Admitted for hypoglycemia sugar of 30-40 treated with D50 and on D5. Dialysis scheduled MWF at [facility] dialysis. Lives in [place] dial[place] at [place] unit but now at [facility] unit while in [place]. He is dialysis dependent but has not been declared ESRD yet. He remains oligoanuric. Hx liver disease with ascites requiring paracentesis weekly, appt canceled yesterday due to admission. He is alert, responsive with MS at baseline. [facility] Medical History (Updated 11/18/21 @ 09:[address] Celeste Smith, DO) Abdominal ascites Acute insomnia Atherosclerotic heart disease of [place] coronary artery without angina pectoris Benign prostatic hyperplasia without lower urinary tract symptoms Cardiomyopathy, unspecified Chronic kidney disease, stage 3 unspecified Cirrhosis Coronary artery disease Depression Diabetes ESRD (end stage renal disease) Essential (primary) hypertension Former smoker GERD (gastroesophageal reflux disease) Heart failure, unspecified Hiatal hernia Hypertension ICD (implantable cardioverter-defibrillator) in place Insomnia Irregular heart beat Myocardial infarct Pressure ulcer, buttock Stroke/cerebrovascular accident Transient cerebral ischemic attack, unspecified Type 2 diabetes mellitus Unspecified atrial fibrillation Home Medications carvedilol 12.5 mg tablet 12.5 mg PO BID HEART 07/02/21 [History Last Taken 11/16/21] glipizide 5 mg tablet 5 mg PO BID DIABETES 07/02/21 [History Last Taken 11/16/21] omeprazole 20 mg capsule,delayed release 20 mg PO DAILY GERD 07/02/21 [History Last Taken 11/16/21] tamsulosin 0.4 mg capsule (Flomax) 0.4 mg PO DAILY URINATION 07/02/21 [History Last Taken 11/16/21] atorvastatin 40 mg tablet 40 tab PO DAILY@0800 CHOLESTEROL 09/21/21 [History Last Taken 11/16/21] bumetanide 1 mg tablet 1 tab PO BID WATER PILL 09/21/21 [History Last Taken 11/16/21] aspirin 81 mg tablet,delayed release 81 mg PO DAILY HEALTH 11/17/21 [History Last Taken 11/17/21] cefdinir 300 mg capsule 300 mg PO DAILY FEMUR 11/17/21 [History Last Taken 11/16/21] doxycycline monohydrate 100 mg capsule 100 mg PO BID FEMUR 11/17/21 [History Last Taken 11/16/21] oxycodone-acetaminophen 5 mg-325 mg tablet (Percocet) 1 tab PO Q4H PRN Pain 11/17/21 [History Last Taken 11/15/21] potassium chloride 10 mEq capsule,extended release 10 meq PO DAILY SUPPLEMENT 11/17/21 [History Last Taken 11/16/21] vitamins A,C,T-ojhb-hwlfow 2,148 mcg-113 mg-45 mg-17.4 mg tablet (PreserVision AREDS) 2 tab PO BID EYE HEALTH 11/17/21 [History Last Taken 11/16/21] Allergy/AdvReac Type Severity Reaction Status Date / Time bethanechol Allergy NEEDS Verified 11/17/21 09:33 FOLLOW-UP Family History Mother Bladder cancer Surgical History History of hip surgery Hx of CABG Social History Smoking Status: Former smoker alcohol intake: current alcohol intake frequency: 0-2 drinks per day ROS ROS Narrative limited historian, severe debilitation Constitutional Constitutional: Reports weakness; Denies chills or fever(s) Eyes Eyes: Denies loss of vision Cardiovascular Cardiovascular: Denies chest pain Respiratory/Chest Respiratory/Chest: Reports dyspnea on exertion and wheezing Gastrointestinal Gastrointestinal: Reports anorexia; Denies abdominal pain, nausea or vomiting Genitourinary Genitourinary: Denies flank pain Musculoskeletal Musculoskeletal: Reports other Details: debiltated Integumentary Integumentary: Reports other Details: diffuse ecchymosis Neurologic Neurologic: Reports weakness Hematologic/Lymphatic Hematologic/Lymphatic: Reports easy bruising Physical Exam Const alert and oriented x3 Constitutional Narrative: debilitated, weak, limited historian General Appearance: frail Nutritional Appearance: thin Cardio regular rate GI non-tender GI Narrative: ascites Auscultation: normoactive bowel sounds Palpation: soft Extremity Extremity Narrative: mild sacral edema Skin Skin Narrative: diffuse ecchymosis Lab / Micro Data Result Diagrams: 11/18/21 05:08 11/18/21 05:08 Labs: Laboratory Results - last 24 hr 11/17/21 09:15: POC Glucose 37 L* 11/17/21 09:52: POC Glucose 121 H 11/17/21 10:00: WBC 9.2, RBC 3.25 L, Hgb 10.4 L, Hct 32.2 L, MCV 99.1 H, MCH 32.0, MCHC 32.3, RDW Std Deviation 55.7 H, RDW Coeff of Jewels 15.2 H, Plt Count 107 L, MPV 10.1, Immature Gran % (Auto) 0.400, Neut % (Auto) 79.7 H, Lymph % (Auto) 8.9 L, [place] % (Auto) 10.4 H, Eos % (Auto) 0.5, Baso % (Auto) 0.1, Absolute Neuts (auto) 7.3, Absolute Lymphs (auto) 0.81 L, Nucleated RBC % 0 11/17/21 10:00: Sodium 135 L, Potassium 3.8, Chloride 98, Carbon Dioxide 31.0, Anion Gap 6, BUN 23 H, Creatinine 3.44 H, Estim Creat Clear Calc 16.21, Est GFR (MDRD) Af Amer 22 L, Est GFR (MDRD) Non-Af 18 L, BUN/Creatinine Ratio 6.7 L, Glucose 218 H, Calcium 7.9 L, Total Bilirubin 1.00, AST 45 H, ALT 15 L, Alkaline Phosphatase 337 H, Total Protein 4.6 L, Albumin 1.8 L, Globulin 2.8, Albumin/Globulin Ratio 0.6 L 11/17/21 10:00: Lactic Acid 1.2 11/17/21 10:08: POC Glucose 110 H 11/17/21 10:43: POC Glucose 103 11/17/21 11:36: Urine Color Yellow, Urine Clarity Turbid, Urine pH 5.0, Ur Specific [place] 1.020, Urine Protein 100 H, Urine Glucose (UA) Normal, Urine Ketones 15 H, Urine Occult Blood 250 H, Urine Nitrite Negative, Urine Bilirubin 3 H, Urine Urobilinogen Normal, Ur Leukocyte Esterase 500 H, Urine RBC 0 SEEN, Urine WBC >100 SEEN, Ur Squamous Epith Cells 0 SEEN, Urine Bacteria 0 SEEN, Urine Mucus 0 SEEN 11/17/21 11:45: POC Glucose 82 11/17/21 12:41: POC Glucose 95 11/17/21 13:39: POC Glucose 123 H 11/17/21 17:09: POC Glucose 180 H 11/18/21 05:08: WBC 6.3, RBC 3.06 L, Hgb 9.6 L, Hct 30.5 L, MCV 99.7 H, MCH 31.4, MCHC 31.5 L, RDW Std Deviation 55.2 H, RDW Coeff of [place]els 15.3 H, Plt Count 102 L, MPV 10.2, Immature Gran % (Auto) 0.500, Neut % (Auto) 65.5, Lymph % (Auto) 15.4 L, [place] % (Auto) 16.2 H, Eos % (Auto) 2.2, Baso % (Auto) 0.2, Absolute Neuts (auto) 4.1, Absolute Lymphs (auto) 0.96, Nucleated RBC % 0 11/18/21 05:08: Sodium 135 L, Potassium 4.0, Chloride 98, Carbon Dioxide 32.0, Anion Gap 5, BUN 31 H, Creatinine 4.07 H, Estim Creat Clear Calc 13.70, Est GFR (MDRD) Af Amer 18 L, Est GFR (MDRD) Non-Af 15 L, BUN/Creatinine Ratio 7.6 L, Glucose 205 H, Calcium 7.6 L, Total Bilirubin 0.80, AST 41 H, ALT 18, Alkaline Phosphatase 349 H, Total Protein 4.9 L, Albumin 2.2 L, Globulin 2.7, Albumin/Globulin Ratio 0.8 L 11/18/21 05:08: PT 16.2 H, INR 1.3 11/18/21 05:58: POC Glucose 215 H Radiology Impression Chest X-Ray 11/17/21 10:10 IMPRESSION: Left pleural effusion, cannot rule out underlying pathology. Electronically Signed: Ranulfo Leblanc MD at 10:31 EDT ,
--- NOTE | 2021-11-18 10:12 | WOUNDNOTE ---
wound photo: left knee
--- NOTE | 2021-11-18 10:13 | WOUNDNOTE ---
wound photo: left hand
--- NOTE | 2021-11-18 10:14 | WOUNDNOTE ---
wound photo: left upper arm/shoulder
--- NOTE | 2021-11-18 10:14 | WOUNDNOTE ---
wound photo: left forearm
--- NOTE | 2021-11-18 10:15 | WOUNDNOTE ---
wound photo: right shoulder
--- NOTE | 2021-11-18 10:16 | WOUNDNOTE ---
wound photo: right arm
--- NOTE | 2021-11-18 10:35 | CASEMGMT ---
Patient is from [facility]. Per Jennifer at [facility] patient will require insurance authorization to return. Clinicals faxed to [facility]. Carlee CORREA
[2021-11-18 11:25] LABS: Bedside Glucose 259 mg/dL (74-106)
[2021-11-18] MEDS: Epoetin Alfa epbx 10,000 UNITS/ML 1000 UNIT IV (13:33)
--- NOTE | 2021-11-18 13:58 | CASEMGMT ---
Social Work This social media sr strategy manager checking for therapy evaluations in order for pre-cert to be started for patient to return to [facility]. Therapy attempted to evaluate patient, where unable to due to patient being medically unstable. Social Work to continue to follow. Nancy Olmedo MSW, DIANNE
[2021-11-18 16:56] LABS: Bedside Glucose 149 mg/dL (74-106)
[2021-11-18] MEDS: Heparin 10,000 UNITS/10 ML Vial IV (17:00)
--- NOTE | 2021-11-18 17:12 | DIALYSIS ---
3.5 hours hemodialysis complete with 700ml fluid removed. Right chest tunneled dialysis cvc dressing changed, site clean and dry. Pt tolerated treatment without difficulty.
[2021-11-18] MEDS: Tamsulosin HCl 0.4 MG Capsule PO (17:25)
[2021-11-18] MEDS: Nepro with Carbsteady 237 ML Liquid 120 ML PO (17:28)
[2021-11-18 23:36] LABS: Bedside Glucose 234 mg/dL (74-106)
[2021-11-19] VITALS (14 sets, daily range): BP systolic 82–128; BP diastolic 47–83; PULSE 65–98; RESP 16–18; TEMP 35.9–36.9; O2SAT 93–100
--- NOTE | 2021-11-19 04:27 | NURSING ---
pt refusing SCDs at this time
[2021-11-19 05:38] LABS: Absolute Lymphocyte Count 1.02 X10^3/uL (0.83-4.51); Absolute Neutrophil Count 4.2 X10^3/uL (2.0-7.7); Basophil# 0.02 X10^3/uL; Basophil% 0.3 % (0-1); Eosinophils% 1.5 % (0-5); Hematocrit 38.4 % (40-54); Hemoglobin 11.7 g/dL (13.0-16.5); Lymphocyte # 1.02 X10^3/ul (0.83-4.51); Lymphocyte % 15.5 % (19-41); Mean Corp Hgb Conc 30.5 g/dL (32-36); Mean Corpuscular Volume 101.6 fL (80-94); Mean Platelet Vol. 10.2 fl (6.2-12.0); Monocyte# 1.17 X10^3/uL; Monocyte% 17.8 % (0-10); NRBC Flagged by Analyzer 0 % (0-5); Neutrophil # 4.23 X10^3/uL (2.7-7.7); Neutrophil % 64.4 % (47-70); POSITIVE COUNT YES; Platelet Count 84 K/mm3 (150-450); RBC Distribution Width CV 15.2 % (11.6-14.6); Red Blood Count 3.78 M/mm3 (4.6-6.2); White Blood Count 6.6 K/mm3 (4.4-11.0)
[2021-11-19 06:13] LABS: Anion Gap 3 (5-15); BUN 28 mg/dL (7-18); BUN/Creat Ratio 7.7 RATIO (10-20); Chloride 102 mmol/L (98-107); Creatinine, Serum 3.62 mg/dL (0.70-1.30); EST Glomerular Filtration Rate 17 mL/min (>60); Est Glom Filt Rate - Afr Amer 21 mL/min (>60); Glucose 169 mg/dL (74-106); Potassium 5.3 mmol/L (3.5-5.1); Sodium Level 137 mmol/L (136-145)
[2021-11-19 07:20] LABS: Bedside Glucose 128 mg/dL (74-106)
--- NOTE | 2021-11-19 07:54 | PCM.PN.HOSP ---
Subjective Subjective No further hypoglycemia. States that he is having trouble coughing up phlegm. Objective Data Objective Data Vital Signs: Vital Signs Temp Pulse Resp BP Pulse Ox O2 Del Method O2 Flow Rate 36.6 C 70 16 82/66 L 96 Nasal Cannula 2 11/19/21 03:14 11/19/21 03:14 11/19/21 03:14 11/19/21 06:20 11/19/21 07:08 11/19/21 07:08 11/19/21 07:08 Oxygen Flow Rate (L/min) 2 Oxygen Delivery Method Nasal Cannula Weight: 78.471 kg Body Mass Index (BMI) 24.8 Intake & Output: Intake and Output for Last 24 Hours 11/17/21 11/18/21 11/19/21 23:59 23:59 23:59 Intake Total 620 / 620 1752.67 / 1752.67 Output Total 0 / 0 700 / 700 Balance 620 / 620 1052.67 / 1052.67 Medical Nutrition Assessment Dietitian: Malnutrition Criteria Met Start: 11/18/21 12:12 Freq: Status: Active Protocol: Document 11/18/21 12:12 AG (Rec: 11/18/21 12:12 AG [id number]) Nutrition Malnutrition Evidence of Malnutrition Exists Yes Malnutrition (moderate): Chronic Evidenced By Suboptimal Energy Intake ( Moderate),Physical Changes ( Moderate) Intake Problem Inadequate Oral Intake Etiology r/t chewing difficulties, decreased appetite Signs/Symptoms as evidenced by estimated PO intake meeting <75% of estimated energy needs. Status Active Problem Clinical Problem Chronic Disease or Condition Related Malnutrition Etiology moderate, chronic malnutrition r/t inadequate energy intake w/ increased energy needs d/t cirrhosis, ESRD Signs/Symptoms as evidenced by estimated PO intake meeting <75% of estimated energy needs x 3 months; moderate muscle wasting/fat loss evident per physical exam Status Active Problem Recommendation Dietitian Recommendations/Changes continue cardiac diet- will order cut up meats; consider SECURITY FLEX UTILITY OFFICER consult if issues chewing persist; will try 120mL nepro carbsteady ONS 4x/day w/ medpass given malnutrition, noted pt was not accepting of ONS during previous admission. Lab / Micro Data Result Diagrams: 11/19/21 05:10 11/19/21 05:10 Labs: Laboratory Results - last 24 hr 11/18/21 05:08: PT 16.2 H, INR 1.3 11/18/21 11:02: POC Glucose 259 H 11/18/21 16:18: POC Glucose 149 H 11/18/21 21:41: POC Glucose 234 H 11/19/21 05:10: WBC 6.6, RBC 3.78 L, Hgb 11.7 L, Hct 38.4 L, MCV 101.6 H, MCH 31.0, MCHC 30.5 L, RDW Std Deviation 56.0 H, RDW Coeff of Jewels 15.2 H, Plt Count 84 L, MPV 10.2, Immature Gran % (Auto) 0.500, Neut % (Auto) 64.4, Lymph % (Auto) 15.5 L, Tompkins % (Auto) 17.8 H, Eos % (Auto) 1.5, Baso % (Auto) 0.3, Absolute Neuts (auto) 4.2, Absolute Lymphs (auto) 1.02, Nucleated RBC % 0 11/19/21 05:10: Sodium 137, Potassium 5.3 H, Chloride 102, Carbon Dioxide 32.0, Anion Gap 3 L, BUN 28 H, Creatinine 3.62 H, Estim Creat Clear Calc 15.40, Est GFR (MDRD) Af Amer 21 L, Est GFR (MDRD) Non-Af 17 L, BUN/Creatinine Ratio 7.7 L, Glucose 169 H, Calcium 8.0 L 11/19/21 06:17: POC Glucose 128 H Micro: Microbiology 11/17/21 11:36 Urine, Clean Catch Urine Culture - Preliminary Gram negative joelle Physical Exam Const alert and no apparent distress Constitutional Narrative: Dysarthria. Weak cough. Resp normal respiratory effort, no retractions and no use of accessory muscles Cardio regular rate, regular rhythm, S1 normal heart sound and S2 normal heart sound GI GI Narrative: Distended but not taut. Normal bowel sounds. Assessment & Plan Assessment/Plan (1) Hypoglycemia: PLAN: Resolved Likely secondary to glipizide and patient with end-stage renal disease and suspected cirrhosis. Responded well with the glucagon as well as D50. DC D5. Continue to hold glipizide. (2) Ascites: QUALIFIERS: Ascites type: other type Qualified Code(s): R18.8 - Other ascites PLAN: Paracentesis scheduled for 11/17 but was held given hospitalization. Resume bumetanide Paracentesis (3) Hypotension: QUALIFIERS: Hypotension type: idiopathic hypotension Qualified Code(s): I95.0 - Idiopathic hypotension PLAN: Patient had been on midodrine will resume. Patient's blood pressure normally runs low. BP parameters for Bumex Check AM cortisol (4) Severe protein-calorie malnutrition: PLAN: Consult nutrition Albumin is 1.8 Pt received albumin 11/17 (5) ESRD (end stage renal disease): PLAN: Nephrology following Had HD 11/18 (6) Cirrhosis: PLAN: presumed follow up with gastroenterology (7) UTI (urinary tract infection): PLAN: UCx thus far showing GNR. on CTX. (8) Dysarthria: PLAN: Weak voice and a weak cough. Speech therapy eval. We will check an ammonia level to see if that is elevated that may be contributing to this. PLAN: Plan VTE prophylaxis: SCDs CODE STATUS: Addressed with the patient's family. Unsure what they want to do. Told them that patient will be full code until they tell us otherwise. Charges/Coding Visit Charges Inpatient E&M: 70214 Subs Hosp L2
[2021-11-19 08:57] LABS: Hepatitis B Surface Antigen Non-Reactive (Nonreactive)
[2021-11-19] MEDS: Multivitamin (Healthy Eyes) Capsule 1 CAP PO ×2 (09:26→17:26)
[2021-11-19] MEDS: Midodrine HCl 5 MG Tablet 10 MG PO ×3 (09:26→17:26)
[2021-11-19] MEDS: Tamsulosin HCl 0.4 MG Capsule PO ×2 (09:27→17:25)
[2021-11-19] MEDS: Pantoprazole Sodium 20 MG Tablet PO (09:29)
[2021-11-19] MEDS: Ceftriaxone 1 GM/50 ML BAG IV (09:41)
--- NOTE | 2021-11-19 10:58 | CASEMGMT ---
SW attempted to talk with patient about a discharge plan, but he was confused. SW called patient's daughter Doris. Introduced self and role at [facility]. Doris was with patient's and their first choice is [facility] and second choice would be [facility]. SW let her know SW will work on this. MARIAH asked Celia d/c strategy planning consultant to please send a referral to [facility]. Carlee Starr ACCOUNTS RECEIVABLE SUPERVISOR SUNNY
--- NOTE | 2021-11-19 11:08 | US_ITS ---
PROCEDURE: Ultrasound guided paracentesis. DATE OF EXAMINATION: 11/19/2021. INDICATION: Male, 85 years old. Ascites. PHYSICIAN: Pantera Sultana M.D. TECHNIQUE: The risks, benefits, and alternatives to the procedure were explained to the patient. The specific risks of bleeding, infection, and damage to bowel were detailed and accepted. Witnessed informed consent was obtained. The abdomen was ultrasonographically surveyed. An appropriate pocket of fluid was identified at the right lower quadrant. The skin were cleaned and prepped in the usual sterile fashion. Using ultrasound guidance, the peritoneal cavity was accessed with a 5-Zambian paracentesis needle/catheter system. The trocar was removed. A total of 6600 ml of blood tinged fluid were removed from the peritoneal cavity. The catheter was removed and a sterile dressing was applied. The procedure was well tolerated. US/Paracentesis with US IMPRESSION: Ultrasound guided paracentesis. Electronically Signed: Pantera Sultana MD at 15:09 EDT ,
--- NOTE | 2021-11-19 11:08 | CASEMGMT ---
Discharge Internet Marketing Coordinator Celia connell special events assistant sent over a referral to Christina at [facility]. Plan: [facility], Waiting acceptance Celia Olmos Discharge Internet Marketing Coordinator
[2021-11-19] MEDS: Bumetanide 2 MG Tablet 1 MG PO ×2 (12:00→17:25)
[2021-11-19 12:26] LABS: Bedside Glucose 163 mg/dL (74-106)
[2021-11-19] MEDS: Lidocaine 2% (10 ml mdv) 10 ML Vial INFILT (14:10)
[2021-11-19] MEDS: Albumin Human 25% (100 mL) 25 GM/100 ML BAG IV ×2 (17:17→18:54)
[2021-11-19] MEDS: Menthol/Lanolin/Calamine/Znox 113 GM Tube 1 APPLIC TOPICAL ×2 (17:23→20:58)
--- NOTE | 2021-11-19 18:52 | NURSING ---
All documentation and medication administration completed by Gala Garcia under the supervision of this RN.
--- NOTE | 2021-11-19 20:13 | PCM.PN.REN ---
Subjective Subjective weak, poor historian. Remains hypotensive. Removed only 700cc fluid on dialysis yesterday. Paracentesis 6.6L today Objective Data Objective Data Vital Signs: Vital Signs Temp Pulse Resp BP Pulse Ox O2 Del Method O2 Flow Rate 97 F L 67 16 95/51 L 94 Room Air 2 11/19/21 16:56 11/19/21 19:00 11/19/21 16:56 11/19/21 16:56 11/19/21 16:56 11/19/21 16:56 11/19/21 09:02 Oxygen Flow Rate (L/min) 2 Oxygen Delivery Method [5] Room Air Oxygen Delivery Method [4] Room Air Oxygen Delivery Method [3] Room Air Oxygen Delivery Method [2] Room Air Oxygen Delivery Method [1 ( Room Air Initial Baseline)] Oxygen Delivery Method Room Air Weight: 78.471 kg Body Mass Index (BMI) 24.8 Intake & Output: Intake and Output for Last 24 Hours 11/17/21 11/18/21 11/19/21 23:59 23:59 23:59 Intake Total 620 / 620 1752.67 / 1752.67 747 / 747 Output Total 0 / 0 700 / 700 6675 / 6675 Balance 620 / 620 1052.67 / 1052.67 -5928 / -5928 Medical Nutrition Assessment Dietitian: Malnutrition Criteria Met Start: 11/18/21 12:12 Freq: Status: Active Protocol: Document 11/18/21 12:12 (Rec: 11/18/21 12:12 [id number]) Nutrition Malnutrition Evidence of Malnutrition Exists Yes Malnutrition (moderate): Chronic Evidenced By Suboptimal Energy Intake ( Moderate),Physical Changes ( Moderate) Intake Problem Inadequate Oral Intake Etiology r/t chewing difficulties, decreased appetite Signs/Symptoms as evidenced by estimated PO intake meeting <75% of estimated energy needs. Status Active Problem Clinical Problem Chronic Disease or Condition Related Malnutrition Etiology moderate, chronic malnutrition r/t inadequate energy intake w/ increased energy needs d/t cirrhosis, ESRD Signs/Symptoms as evidenced by estimated PO intake meeting <75% of estimated energy needs x 3 months; moderate muscle wasting/fat loss evident per physical exam Status Active Problem Recommendation Dietitian Recommendations/Changes continue cardiac diet- will order cut up meats; consider FIRE PROTECTION SPECIALIST consult if issues chewing persist; will try 120mL nepro carbsteady ONS 4x/day w/ medpass given malnutrition, noted pt was not accepting of ONS during previous admission. Lab / Micro Data Result Diagrams: 11/19/21 05:10 11/19/21 05:10 Labs: Laboratory Results - last 24 hr 11/18/21 05:09: Hep Bs Antigen Non-Reactive 11/18/21 21:41: POC Glucose 234 H 11/19/21 05:10: WBC 6.6, RBC 3.78 L, Hgb 11.7 L, Hct 38.4 L, MCV 101.6 H, MCH 31.0, MCHC 30.5 L, RDW Std Deviation 56.0 H, RDW Coeff of Jewels 15.2 H, Plt Count 84 L, MPV 10.2, Immature Gran % (Auto) 0.500, Neut % (Auto) 64.4, Lymph % (Auto) 15.5 L, Hutchinson % (Auto) 17.8 H, Eos % (Auto) 1.5, Baso % (Auto) 0.3, Absolute Neuts (auto) 4.2, Absolute Lymphs (auto) 1.02, Nucleated RBC % 0 11/19/21 05:10: Sodium 137, Potassium 5.3 H, Chloride 102, Carbon Dioxide 32.0, Anion Gap 3 L, BUN 28 H, Creatinine 3.62 H, Estim Creat Clear Calc 15.40, Est GFR (MDRD) Af Amer 21 L, Est GFR (MDRD) Non-Af 17 L, BUN/Creatinine Ratio 7.7 L, Glucose 169 H, Calcium 8.0 L 11/19/21 06:17: POC Glucose 128 H 11/19/21 11:51: POC Glucose 163 H 11/19/21 15:10: Ammonia 11.0 Micro: Microbiology 11/17/21 11:36 Urine, Clean Catch Urine Culture - Preliminary GNR Poss Pseudomonas sp Radiography Diagnostic Testing: Radiology Impression Paracentesis Ultrasound 11/19/21 11:08 IMPRESSION: Ultrasound guided paracentesis. 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 Dialysis Tuesday. Overall prognosis poor (2) DM2 (diabetes mellitus, type 2): PLAN: pcp mgmt (3) Anemia of chronic disease: PLAN: epo on dialysis (4) Hypoglycemia: PLAN: resolved (5) Hypotension: QUALIFIERS: Hypotension type: idiopathic hypotension Qualified Code(s): I95.0 - Idiopathic hypotension PLAN: stop antihypertensives. Increase midodrine to 20mg tid (6) Ascites: QUALIFIERS: Ascites type: other type Qualified Code(s): R18.8 - Other ascites PLAN: paracentesis today 6.6L removed (7) Cardiomyopathy: PLAN: anasarca (8) Coronary artery disease: (9) Debilitated:
[2021-11-19] MEDS: Midodrine HCl 5 MG Tablet 20 MG PO (20:58)
[2021-11-19] MEDS: 0.9% Saline Lock 10 ML Syringe IV (20:58)
[2021-11-19 23:00] LABS: Bedside Glucose 114 mg/dL (74-106)
[2021-11-20] VITALS (11 sets, daily range): BP systolic 85–113; BP diastolic 48–99; PULSE 62–92; RESP 16–22; TEMP 36–36.6; O2SAT 94–98
[2021-11-20 00:26] LABS: Bedside Glucose 78 mg/dL (74-106)
[2021-11-20 06:44] LABS: Absolute Neutrophil Count 3.9 X10^3/uL (2.0-7.7); Basophil# 0.02 X10^3/uL; Basophil% 0.3 % (0-1); Eosinophil# 0.12 X10^3/uL; Eosinophils% 1.9 % (0-5); Hematocrit 32.1 % (40-54); Hemoglobin 10.3 g/dL (13.0-16.5); Lymphocyte % 19.4 % (19-41); Mean Corp Hgb Conc 32.1 g/dL (32-36); Mean Corpuscular Hgb 31.8 pg (27.0-32.0); Mean Corpuscular Volume 99.1 fL (80-94); Mean Platelet Vol. 10.6 fl (6.2-12.0); Monocyte# 0.97 X10^3/uL; Monocyte% 15.7 % (0-10); NRBC Flagged by Analyzer 0 % (0-5); Neutrophil # 3.85 X10^3/uL (2.7-7.7); Neutrophil % 62.5 % (47-70); POSITIVE COUNT YES; Platelet Count 94 K/mm3 (150-450); RBC Distribution Width CV 14.7 % (11.6-14.6); RBC Distribution Width SD 53.7 fl (35.1-43.9); Red Blood Count 3.24 M/mm3 (4.6-6.2); White Blood Count 6.2 K/mm3 (4.4-11.0)
[2021-11-20 07:17] LABS: AST(SGOT) 44 U/L (15-37); Alanine Aminotransfer ALT/SGPT 20 U/L (16-61); Albumin, Serum 2.5 g/dL (3.2-5.0); Alkaline Phosphatase 342 U/L (45-117); Anion Gap 5 (5-15); BUN 35 mg/dL (7-18); BUN/Creat Ratio 8.9 RATIO (10-20); Calcium,Total 8.3 mg/dL (8.5-10.1); Chloride 102 mmol/L (98-107); Creatinine, Serum 3.93 mg/dL (0.70-1.30); EST Glomerular Filtration Rate 16 mL/min (>60); Est Glom Filt Rate - Afr Amer 19 mL/min (>60); Estimated Creatinine Clearance 14.19 ml/min; Globulin 2.4 g/dL (2.2-4.2); Glucose 56 mg/dL (74-106); Potassium 4.2 mmol/L (3.5-5.1); Protein, Total 4.9 g/dL (6.4-8.2); Sodium Level 136 mmol/L (136-145)
[2021-11-20 07:20] LABS: Bedside Glucose 50 mg/dL (74-106)
[2021-11-20 07:20] LABS: Bedside Glucose 52 mg/dL (74-106)
[2021-11-20 07:21] LABS: Bedside Glucose 93 mg/dL (74-106)
--- NOTE | 2021-11-20 08:10 | PCM.PN.HOSP ---
Subjective Subjective Confused. Objective Data Objective Data Vital Signs: Vital Signs Temp Pulse Resp BP Pulse Ox O2 Del Method O2 Flow Rate 36.4 C L 92 16 113/61 95 Room Air 2 11/20/21 03:05 11/20/21 07:00 11/20/21 03:05 11/20/21 03:05 11/20/21 07:15 11/20/21 07:15 11/19/21 09:02 Oxygen Flow Rate (L/min) 2 Oxygen Delivery Method [5] Room Air Oxygen Delivery Method [4] Room Air Oxygen Delivery Method [3] Room Air Oxygen Delivery Method [2] Room Air Oxygen Delivery Method [1 ( Room Air Initial Baseline)] Oxygen Delivery Method Room Air Weight: 78.471 kg Body Mass Index (BMI) 24.8 Intake & Output: Intake and Output for Last 24 Hours 11/18/21 11/19/21 11/20/21 23:59 23:59 23:59 Intake Total 1752.67 / 1752.67 847 / 847 Output Total 700 / 700 6675 / 6675 Balance 1052.67 / 1052.67 -5828 / -5828 Medical Nutrition Assessment Dietitian: Malnutrition Criteria Met Start: 11/18/21 12:12 Freq: Status: Active Protocol: Document 11/18/21 12:12 (Rec: 11/18/21 12:12 [id number]) Nutrition Malnutrition Evidence of Malnutrition Exists Yes Malnutrition (moderate): Chronic Evidenced By Suboptimal Energy Intake ( Moderate),Physical Changes ( Moderate) Intake Problem Inadequate Oral Intake Etiology r/t chewing difficulties, decreased appetite Signs/Symptoms as evidenced by estimated PO intake meeting <75% of estimated energy needs. Status Active Problem Clinical Problem Chronic Disease or Condition Related Malnutrition Etiology moderate, chronic malnutrition r/t inadequate energy intake w/ increased energy needs d/t cirrhosis, ESRD Signs/Symptoms as evidenced by estimated PO intake meeting <75% of estimated energy needs x 3 months; moderate muscle wasting/fat loss evident per physical exam Status Active Problem Recommendation Dietitian Recommendations/Changes continue cardiac diet- will order cut up meats; consider DATA SERVICES DEVELOPER consult if issues chewing persist; will try 120mL nepro carbsteady ONS 4x/day w/ medpass given malnutrition, noted pt was not accepting of ONS during previous admission. Lab / Micro Data Result Diagrams: 11/20/21 05:45 11/20/21 05:45 Labs: Laboratory Results - last 24 hr 11/18/21 05:09: Hep Bs Antigen Non-Reactive 11/19/21 11:51: POC Glucose 163 H 11/19/21 15:10: Ammonia 11.0 11/19/21 16:52: POC Glucose 114 H 11/19/21 20:53: POC Glucose 78 11/20/21 05:42: POC Glucose 50 L 11/20/21 05:45: WBC 6.2, RBC 3.24 L, Hgb 10.3 L, Hct 32.1 L, MCV 99.1 H, MCH 31.8, MCHC 32.1 D, RDW Std Deviation 53.7 H, RDW Coeff of Jewels 14.7 H, Plt Count 94 L, MPV 10.6, Immature Gran % (Auto) 0.200, Neut % (Auto) 62.5, Lymph % (Auto) 19.4, Coke % (Auto) 15.7 H, Eos % (Auto) 1.9, Baso % (Auto) 0.3, Absolute Neuts (auto) 3.9, Absolute Lymphs (auto) 1.20, Nucleated RBC % 0 11/20/21 05:45: Sodium 136, Potassium 4.2, Chloride 102, Carbon Dioxide 29.0, Anion Gap 5, BUN 35 H, Creatinine 3.93 H, Estim Creat Clear Calc 14.19, Est GFR (MDRD) Af Amer 19 L, Est GFR (MDRD) Non-Af 16 L, BUN/Creatinine Ratio 8.9 L, Glucose 56 L, Calcium 8.3 L, Total Bilirubin 1.00, AST 44 H, ALT 20, Alkaline Phosphatase 342 H, Total Protein 4.9 L, Albumin 2.5 L, Globulin 2.4, Albumin/Globulin Ratio 1.0 11/20/21 05:45: Cortisol 28.40 H 11/20/21 06:00: POC Glucose 52 L 11/20/21 06:29: POC Glucose 93 Micro: Microbiology 11/17/21 11:36 Urine, Clean Catch Urine Culture - Final Pseudomonas aeroginosa Radiography Diagnostic Testing: Radiology Impression Paracentesis Ultrasound 11/19/21 11:08 IMPRESSION: Ultrasound guided paracentesis. Electronically Signed: Pantera Sultana MD at 15:09 EDT , Physical Exam Const alert and no apparent distress Resp normal respiratory effort, no retractions, no use of accessory muscles and clear to auscultation bilaterally Cardio regular rate, regular rhythm, S1 normal heart sound and S2 normal heart sound GI normal to inspection, nondistended, normoactive bowel sounds, soft to palpation, non-tender and non-distended Assessment & Plan Assessment/Plan (1) Hypoglycemia: PLAN: Resolved Likely secondary to glipizide and patient with end-stage renal disease and suspected cirrhosis. Responded well with the glucagon as well as D50. DC D5. Continue to hold glipizide. (2) Ascites: QUALIFIERS: Ascites type: other type Qualified Code(s): R18.8 - Other ascites PLAN: 2/2 to cirrhosis Paracentesis scheduled for 11/17 but was held given hospitalization. Resume bumetanide Paracentesis 11/19: removed 6.6 liters. Received 50 g albumin afterwards (3) Hypotension: QUALIFIERS: Hypotension type: idiopathic hypotension Qualified Code(s): I95.0 - Idiopathic hypotension PLAN: Chronic Patient had been on midodrine will resume. Patient's blood pressure normally runs low. BP parameters for Bumex AM cortisol WNL (4) Severe protein-calorie malnutrition: PLAN: Consult nutrition Albumin is 1.8 Pt received albumin 11/17 (5) ESRD (end stage renal disease): PLAN: Nephrology following Had HD 11/18 and 11/20 (6) Cirrhosis: PLAN: presumed follow up with gastroenterology (7) UTI (urinary tract infection): PLAN: Pseudomona aeroginosa, knight-sensitive DC CTX, start levofloxacin dialysis dosing 750 Q48h through the (8) Dysarthria: PLAN: Weak voice and a weak cough. Speech therapy eval. We will check an ammonia level to see if that is elevated that may be contributing to this. PLAN: Plan VTE prophylaxis: SCDs CODE STATUS: Addressed with the patient's family. Unsure what they want to do. Told them that patient will be full code until they tell us otherwise. Prognosis: Guarded. Greater than 30 minutes of which greater than for percent of time was discussing with the patient's and daughter at bedside. Discussed his Claire complaints including dizziness and confusion. Explained limitations regards to his testing as we would be unable to do an MRI due to his having defibrillator. Additionally also touching on his long-term prognosis as being likely poor. I told him that it cannot pin down how he is going to do in the near future but I am concerned about his multitude of serious issues including what may be cirrhosis as well as end-stage renal disease as well as his bad heart and making it much more difficult for him to thrive. Explaining also that he is can be more susceptible to illnesses and may set him back further. Explained to them that there will be some at some point which still unclear that it may be advisable to proceed with comfort measures. Charges/Coding Visit Charges Inpatient E&M: 66225 Subs Hosp L3
--- NOTE | 2021-11-20 09:50 | CASEMGMT ---
Discharge Medical Logistics Specialist Celia d/gumaro preschool assistant reached out to Christina at [facility]. Patient was denied. Celia sent over update on patient to [facility] and asked for Jennifer to start pre-cert. Plan: [facility], Waiting pre-cert. Celia Olmos Discharge Medical Logistics Specialist
--- NOTE | 2021-11-20 09:55 | CASEMGMT ---
SW called patient's daughter Doris and let her know [facility] has declined due to patient's last stay. MARIAH let Doris know that the plan will be for patient to return to [facility] pending insurance authorization. MARIAH let Doris know that someone will be in touch when patient is ready for discharge. Plan: d/c to [facility] pending pre-cert. Carlee Starr RESTAURANT GREETER SUNNY
[2021-11-20] MEDS: 0.9% Saline Lock 10 ML Syringe IV (09:57)
[2021-11-20] MEDS: Midodrine HCl 5 MG Tablet 20 MG PO ×2 (09:58→13:20)
--- NOTE | 2021-11-20 11:36 | PCM.PN.REN ---
Subjective Subjective currently undergoing dialysis. Chronic low BP on midodrine. fluid removal as tolerated for anasarca Objective Data Objective Data Vital Signs: Vital Signs Temp Pulse Resp BP Pulse Ox O2 Del Method O2 Flow Rate 97.1 F L 88 22 H 93/49 L 95 Room Air 2 11/20/21 08:44 11/20/21 08:44 11/20/21 08:44 11/20/21 08:44 11/20/21 07:15 11/20/21 08:44 11/19/21 09:02 Oxygen Flow Rate (L/min) 2 Oxygen Delivery Method [5] Room Air Oxygen Delivery Method [4] Room Air Oxygen Delivery Method [3] Room Air Oxygen Delivery Method [2] Room Air Oxygen Delivery Method [1 ( Room Air Initial Baseline)] Oxygen Delivery Method Room Air Weight: 78.471 kg Body Mass Index (BMI) 24.8 Intake & Output: Intake and Output for Last 24 Hours 11/18/21 11/19/21 11/20/21 23:59 23:59 23:59 Intake Total 1752.67 / 1752.67 847 / 847 Output Total 700 / 700 6675 / 6675 Balance 1052.67 / 1052.67 -5828 / -5828 Medical Nutrition Assessment Dietitian: Malnutrition Criteria Met Start: 11/18/21 12:12 Freq: Status: Active Protocol: Document 11/18/21 12:12 (Rec: 11/18/21 12:12 [id number]) Nutrition Malnutrition Evidence of Malnutrition Exists Yes Malnutrition (moderate): Chronic Evidenced By Suboptimal Energy Intake ( Moderate),Physical Changes ( Moderate) Intake Problem Inadequate Oral Intake Etiology r/t chewing difficulties, decreased appetite Signs/Symptoms as evidenced by estimated PO intake meeting <75% of estimated energy needs. Status Active Problem Clinical Problem Chronic Disease or Condition Related Malnutrition Etiology moderate, chronic malnutrition r/t inadequate energy intake w/ increased energy needs d/t cirrhosis, ESRD Signs/Symptoms as evidenced by estimated PO intake meeting <75% of estimated energy needs x 3 months; moderate muscle wasting/fat loss evident per physical exam Status Active Problem Recommendation Dietitian Recommendations/Changes continue cardiac diet- will order cut up meats; consider ELECTRONIC INSTRUMENT TRADES WORKER consult if issues chewing persist; will try 120mL nepro carbsteady ONS 4x/day w/ medpass given malnutrition, noted pt was not accepting of ONS during previous admission. Lab / Micro Data Result Diagrams: 11/20/21 05:45 11/20/21 05:45 Labs: Laboratory Results - last 24 hr 11/19/21 11:51: POC Glucose 163 H 11/19/21 15:10: Ammonia 11.0 11/19/21 16:52: POC Glucose 114 H 11/19/21 20:53: POC Glucose 78 11/20/21 05:42: POC Glucose 50 L 11/20/21 05:45: WBC 6.2, RBC 3.24 L, Hgb 10.3 L, Hct 32.1 L, MCV 99.1 H, MCH 31.8, MCHC 32.1 D, RDW Std Deviation 53.7 H, RDW Coeff of Jewels 14.7 H, Plt Count 94 L, MPV 10.6, Immature Gran % (Auto) 0.200, Neut % (Auto) 62.5, Lymph % (Auto) 19.4, [place]oure % (Auto) 15.7 H, Eos % (Auto) 1.9, Baso % (Auto) 0.3, Absolute Neuts (auto) 3.9, Absolute Lymphs (auto) 1.20, Nucleated RBC % 0 11/20/21 05:45: Sodium 136, Potassium 4.2, Chloride 102, Carbon Dioxide 29.0, Anion Gap 5, BUN 35 H, Creatinine 3.93 H, Estim Creat Clear Calc 14.19, Est GFR (MDRD) Af Amer 19 L, Est GFR (MDRD) Non-Af 16 L, BUN/Creatinine Ratio 8.9 L, Glucose 56 L, Calcium 8.3 L, Total Bilirubin 1.00, AST 44 H, ALT 20, Alkaline Phosphatase 342 H, Total Protein 4.9 L, Albumin 2.5 L, Globulin 2.4, Albumin/Globulin Ratio 1.0 11/20/21 05:45: Cortisol 28.40 H 11/20/21 06:00: POC Glucose 52 L 11/20/21 06:29: POC Glucose 93 Micro: Microbiology 11/17/21 11:36 Urine, Clean Catch Urine Culture - Final Pseudomonas aeroginosa Radiography Diagnostic Testing: Radiology Impression Paracentesis Ultrasound 11/19/21 11:08 IMPRESSION: Ultrasound guided paracentesis. Electronically Signed: Pantera Sultana MD at 15:09 EDT , Physical Exam Const alert and oriented x3 Constitutional Narrative: debilitated, weak, limited historian, upper airway wheeze General Appearance: frail Orientation / Consciousness: confused Nutritional Appearance: cachectic and thin Resp Auscultation: rhonchi Cardio regular rate GI non-tender GI Narrative: ascites, distended Auscultation: normoactive bowel sounds Palpation: soft and ascites Extremity Extremity Narrative: mild sacral edema General Extremity: edema bilateral (to sacrum) Skin Skin Narrative: ecchymosis diffuse Psych Memory / Cognition: cognition impaired Assessment & Plan Assessment/Plan (1) CKD stage G5/A2, GFR <15 and albumin creatinine ratio 30- 299 mg/g: PLAN: dialysis MWF at [facility]. Dialysis today. overall prognosis poor (2) DM2 (diabetes mellitus, type 2): PLAN: pcp mgmt (3) Anemia of chronic disease: PLAN: epo on dialysis (4) Hypoglycemia: PLAN: resolved (5) Hypotension: QUALIFIERS: Hypotension type: idiopathic hypotension Qualified Code(s): I95.0 - Idiopathic hypotension PLAN: stop antihypertensives. Increase midodrine to 20mg tid (6) Ascites: QUALIFIERS: Ascites type: other type Qualified Code(s): R18.8 - Other ascites PLAN: s/p paracentesis yesterday (7) Cardiomyopathy: PLAN: anasarca (8) Coronary artery disease: (9) Debilitated:
--- NOTE | 2021-11-20 11:55 | DIALYSIS ---
Hemodialysis complete with 2 liters fluid removed. Right chest dialysis CVC dressing is clean and dry. Pt tolerated treatment without difficulty.
[2021-11-20 13:10] LABS: Bedside Glucose 107 mg/dL (74-106)
[2021-11-20] MEDS: Epoetin Alfa epbx 10,000 UNITS/ML 1000 UNIT IV (13:18)
[2021-11-20] MEDS: Tamsulosin HCl 0.4 MG Capsule PO (13:20)
[2021-11-20] MEDS: Pantoprazole Sodium 20 MG Tablet PO (13:20)
[2021-11-20] MEDS: Multivitamin (Healthy Eyes) Capsule 1 CAP PO (13:20)
[2021-11-20] MEDS: levoFLOXacin 750 MG Tablet PO (13:20)
[2021-11-20] MEDS: Heparin 10,000 UNITS/10 ML Vial IV (13:21)
[2021-11-20] MEDS: Menthol/Lanolin/Calamine/Znox 113 GM Tube 1 APPLIC TOPICAL (13:26)
--- NOTE | 2021-11-20 15:27 | CASEMGMT ---
Discharge Senior Compensation Analyst Celia connell transport assistant sent over PT notes from today and the MD note from today. Jennifer reached out and said insurance was needing more information and insurance was not sure if the patient was stable for a SNF. MARIAH Bejarano notified. Plan: [facility] Celia Olmos Discharge Senior Compensation Analyst
--- NOTE | 2021-11-20 16:29 | NURSING ---
[facility] called saying they obtained precert for patient. They stated they can take pt today if he's ready. notified.
--- NOTE | 2021-11-20 16:54 | PCM.TXEXTCAR ---
Diet Diet Order/Speech Therapy: 11/17/21 15:26 Diet: Cardiac - Heart Healthy Food consistency:: Regular Liquid Consistency:: Regular/Thin Is pt able to select menu?: Yes Diet Comments: cut up meats- no teeth Routine Orders/Code Status Routine Lab Work: BMP Wound(s) L knee: Wound Type: scabbed over abrasion l hand: Wound Type: scabbed over skin tear L forarm: Wound Type: Skin Tear Dressing Change: Adaptic with Mepilex dressing Left shoulder: Wound Type: scabbed abrasion r chest: Wound Type: Dialysis cath R forarm: Wound Type: scattered dry scabbed over skin tears L lateral wrist: Wound Type: Abrasion r shoulder: Wound Type: scabbed abrasion l hip: Wound Type: Surgical Incision left upper arm: Wound Type: dry skin tear Therapies Weight Bearing: Full weight bearing Physical Therapy: Eval and Treat Occupational Therapy: Eval and Treat Speech Therapy: Eval and Treat Problem/Diagnosis (1) CKD stage G5/A2, GFR <15 and albumin creatinine ratio 30- 299 mg/g: Status: Acute Code(s): N18.5 - Chronic kidney disease, stage 5 Plan: Dr. Celeste Smith for hemodialysis every Tuesday, Tuesday, Tuesday. (2) DM2 (diabetes mellitus, type 2): Status: Acute Code(s): E11.9 - Type 2 diabetes mellitus without complications Plan: Admitted with hypoglycemia. Glipizide held. (3) Anemia of chronic disease: Status: Chronic Code(s): D63.8 - Anemia in other chronic diseases classified elsewhere (4) Hypoglycemia: Status: Acute Code(s): E16.2 - Hypoglycemia, unspecified Plan: Resolved Likely secondary to glipizide and patient with end-stage renal disease and suspected cirrhosis. Responded well with the glucagon as well as D50. DC D5. Continue to hold glipizide. (5) Hypotension: Status: Acute Code(s): I95.9 - Hypotension, unspecified Plan: Chronic Patient had been on midodrine will resume. Patient's blood pressure normally runs low. BP parameters for Bumex AM cortisol WNL (6) Ascites: Status: Acute Code(s): R18.8 - Other ascites Plan: 2/2 to cirrhosis Paracentesis scheduled for 8/16 but was held given hospitalization. Resume bumetanide Paracentesis 11/19: removed 6.6 liters. Received 50 g albumin afterwards (7) Cardiomyopathy: Status: Acute Code(s): I42.9 - Cardiomyopathy, unspecified (8) Coronary artery disease: Status: Acute Code(s): I25.10 - Atherosclerotic heart disease of [place] coronary artery without angina pectoris (9) Debilitated: Status: Acute Code(s): R53.81 - Other malaise Plan VTE prophylaxis: SCDs CODE STATUS: Addressed with the patient's family. Unsure what they want to do. Told them that patient will be full code until they tell us otherwise. Prognosis: Guarded. Greater than 30 minutes of which greater than for percent of time was discussing with the patient's and daughter at bedside. Discussed his myriad of complaints including dizziness and confusion. Explained limitations regards to his testing as we would be unable to do an MRI due to his having defibrillator. Additionally also touching on his long-term prognosis as being likely poor. I told him that it cannot pin down how he is going to do in the near future but I am concerned about his multitude of serious issues including what may be cirrhosis as well as end-stage renal disease as well as his bad heart and making it much more difficult for him to thrive. Explaining also that he is can be more susceptible to illnesses and may set him back further. Explained to them that there will be some at some point which still unclear that it may be advisable to proceed with comfort measures. Allergies/Procedures Done in Hospital Allergies bethanechol Allergy (Verified 11/17/21 09:33) NEEDS FOLLOW-UP Procedures: Dialysis and Paracentesis Type of Care/Length of Stay Estimated LOS: Convalescent Care Less Than 30 days Type of Care Needed: Skilled Rehab Potential: Fair Prognosis: Fair Additional Orders/Day of Discharge Day of Discharge: 11/20/21 Dietary and Speech Recommendations Dietitian Recommendations/Changes: continue cardiac diet- will order cut up meats; consider GEOSPATIAL INFORMATION SCIENTIST consult if issues chewing persist; will try 120mL nepro carbsteady ONS 4x/day w/medpass given malnutrition, noted pt was not accepting of ONS during previous admission. Speech Linguistic Eval Summary: Orientation: Pt oriented to self, , place, current month and year. Age off by 1 year. GEOSPATIAL INFORMATION SCIENTIST asked the patient where he was living prior to admission - response was unintelligible. When asked if he came from [facility], the patient stated No, I've never heard of it. Auditory Comprehension: Simple yes/no questions 70% acc. Following 1-step directions 6/8 acc. Following 2-step directions 2/5 acc. Verbal Expression: Generative naming of concrete category (animals) completed X8 items in 1 minute - 1 perseveration. Speech Production: Hoarse vocal quality. Appropriate vocal intensity in conversation. Sustained ah - 3.5 seconds. Attempted diadochokinetic rates, but he was unable to follow commands to complete /t/ or /k/ portion of assessment despite max verbal cues and written letter to cue the sounds. /p^/ repeated with speed of 1.9 syllables/seconds. Oral motor assessment completed. Lingual and labial strength WNL, but the patient had slowed movements when cued to complete lingual and labial coordination tasks. Reduced labial ROM with lip retraction and pucker. Speech intelligibility in conversation ~70%. Memory: Immediate recall of 3-word list 1/3 acc. 2-min delayed recall of 3-word list 1/3 acc. The patient presents with moderate dysarthria characterized by slow rate, imprecise articulation, hoarse vocal quality. He presents with moderate-severe cognitive-linguistic impairment characterized by deficits in auditory comprehension, orientation of personal information (age, residence), word finding, and memory. Goals added to POC to address deficits in speech clarity, auditory comprehension, orientation of personal information (age, residence), and memory. Discharge Plan Admission Admit Date/Time: 11/17/21 13:34 Primary Reason for Your Visit: hypoglycemia. UTI Attending Provider: Gumaro Pugh Primary Care Provider: Arash Mendiola Consulting Providers: Celeste Smith Discharge Orders/Prescriptions Prescriptions: New levofloxacin 500 mg Tablet 500 mg PO Q48@0600 Qty: 0 0RF Rx Instructions: on 11/22, 11/24 and 11/26 menthol-zinc oxide [Calmoseptine] 0.44-20.6 % Ointment 1 applic topical BID Qty: 0 0RF Protocol: *Topical Application Instructions APPLICATION INSTRUCTIONS: apply to affected region midodrine 5 mg Tablet 20 mg PO TIDCM Qty: 0 0RF Nepro Carb Steady 0.08 gram-1.8 kcal/mL Liquid 120 ml PO 4X/DAY Qty: 0 0RF carvedilol 3.125 mg tablet 3.125 mg PO BID Qty: 30 0RF Rx Instructions: must administer with a meal/food. Hold for SBP less than 110. Continued omeprazole 20 mg capsule,delayed release(DR/EC) 20 mg PO DAILY tamsulosin [Flomax] 0.4 mg capsule 0.4 mg PO DAILY aspirin 81 mg Tablet,Delayed Release (Dr/Ec) 81 mg PO DAILY PreserVision AREDS 2,148 mcg-113 mg-45 mg-17.4mg Tablet 2 tab PO BID Changed bumetanide 1 mg tablet 1 mg PO BID Qty: 30 0RF Rx Instructions: hold for SBP < 100 Discontinued carvedilol 12.5 mg tablet 12.5 mg PO BID Rx Instructions: must administer with a meal/food glipizide 5 mg tablet 5 mg PO BID atorvastatin 40 mg tablet 40 tab PO DAILY@0800 Label Comments: TAKE 1 TABLET BY MOUTH ONCE DAILY potassium chloride 10 mEq Capsule, Extended Release 10 meq PO DAILY cefdinir 300 mg Capsule 300 mg PO DAILY Rx Instructions: give daily for 7 days beginning 11/11/21 oxycodone-acetaminophen [Percocet] 5-325 mg Tablet 1 tab PO Q4H PRN (Reason: Pain) doxycycline monohydrate 100 mg capsule 100 mg PO BID Referrals / Follow Up: Arash Mendiola MD [Primary Care Provider] - Within 2 Weeks Disposition Disposition (needs filled in before D/C Order can be placed): Assisted Facility (1) Ascites Qualifiers: Ascites type: other type Qualified Code(s): R18.8 - Other ascites (2) Hypotension Qualifiers: Hypotension type: idiopathic hypotension Qualified Code(s): I95.0 - Idiopathic hypotension
--- NOTE | 2021-11-20 17:06 | DS.PCM_ITS ---
Providers Date of Admission: 11/17/21 Primary Care Physician: Dr. Arash Mendiola MD Consultations 11/17/21 15:25 Consult: Nephrology Routine Consulting Provider: Celeste Smith Reason for Consult: dialysis EMERGENT Consult: No MD Notified: Yes Date Notified: 11/17/21 Time Notified: 13:38 Method of Notification: Verbal Consult: Onc/Wound/anime designer Routine Comment: Reason For Visit: hypoglycemia, hypotension Diagnosis Discharge Diagnosis (1) Hypoglycemia: Status: Acute Code(s): E16.2 - Hypoglycemia, unspecified Plan: Resolved Likely secondary to glipizide and patient with end-stage renal disease and suspected cirrhosis. Responded well with the glucagon as well as D50. DC D5. Continue to hold glipizide. (2) CKD stage G5/A2, GFR <15 and albumin creatinine ratio 30- 299 mg/g: Status: Acute Code(s): N18.5 - Chronic kidney disease, stage 5 Plan: Dr. Celeste Smith for hemodialysis every Tuesday, Tuesday, Tuesday. (3) DM2 (diabetes mellitus, type 2): Status: Acute Code(s): E11.9 - Type 2 diabetes mellitus without complications Plan: Admitted with hypoglycemia. Glipizide held. (4) Anemia of chronic disease: Status: Chronic Code(s): D63.8 - Anemia in other chronic diseases classified elsewhere (5) Hypotension: Status: Acute Code(s): I95.9 - Hypotension, unspecified Qualifiers: Hypotension type: idiopathic hypotension Qualified Code(s): I95.0 - Id iopathic hypotension Plan: Chronic Patient had been on midodrine will resume. Patient's blood pressure normally runs low. BP parameters for Bumex AM cortisol WNL (6) Ascites: Status: Acute Code(s): R18.8 - Other ascites Qualifiers: Ascites type: other type Qualified Code(s): R18.8 - Other ascites Plan: 2/2 to cirrhosis Paracentesis scheduled for 11/17 but was held given hospitalization. Resume bumetanide Paracentesis 11/19: removed 6.6 liters. Received 50 g albumin afterwards (7) Cardiomyopathy: Status: Acute Code(s): I42.9 - Cardiomyopathy, unspecified (8) Coronary artery disease: Status: Acute Code(s): I25.10 - Atherosclerotic heart disease of [place] coronary artery without angina pectoris (9) Debilitated: Status: Acute Code(s): R53.81 - Other malaise (10) UTI (urinary tract infection): Status: Acute Code(s): N39.0 - Urinary tract infection, site not specified Plan: LVQ through the Plan VTE prophylaxis: SCDs CODE STATUS: Addressed with the patient's family. Unsure what they want to do. Told them that patient will be full code until they tell us otherwise. Prognosis: Guarded. Greater than 30 minutes of which greater than for percent of time was discussing with the patient's and daughter at bedside. Discussed his myriad of complaints including dizziness and confusion. Explained limitations regards to his testing as we would be unable to do an MRI due to his having defibrillator. Additionally also touching on his long-term prognosis as being likely poor. I told him that it cannot pin down how he is going to do in the near future but I am concerned about his multitude of serious issues including what may be cirrhosis as well as end-stage renal disease as well as his bad heart and making it much more difficult for him to thrive. Explaining also that he is can be more susceptible to illnesses and may set him back further. Explained to them that there will be some at some point which still unclear that it may be advisable to proceed with comfort measures. Medications at Discharge Home Medications omeprazole 20 mg capsule,delayed release 20 mg PO DAILY GERD 07/02/21 tamsulosin 0.4 mg capsule (Flomax) 0.4 mg PO DAILY URINATION 07/02/21 aspirin 81 mg tablet,delayed release 81 mg PO DAILY HEALTH 11/17/21 vitamins A,C,O-wuqk-galkmi 2,148 mcg-113 mg-45 mg-17.4 mg tablet (PreserVision AREDS) 2 tab PO BID EYE HEALTH 11/17/21 bumetanide 1 mg tablet 1 mg PO BID WATER PILL #30 tabs 11/20/21 carvedilol 3.125 mg tablet 3.125 mg PO BID #30 tabs 11/20/21 levofloxacin 500 mg tablet 500 mg PO Q48@0600 #0 tabs 11/20/21 menthol 0.44 %-zinc oxide 20.6 % topical ointment (Calmoseptine) 1 applic topical BID #0 grams 11/20/21 midodrine 5 mg tablet 20 mg PO TIDCM #0 tabs 11/20/21 nut.tx.imp.renal fxn,lac-reduc 0.08 gram-1.8 kcal/mL oral liquid (Nepro Carb Steady) 120 ml PO 4X/DAY #0 mL 11/20/21 Hospital Course Operations None Procedures Dialysis and Paracentesis Summary of Care Provided Minutes Spent on Discharge: 40 Hospital Course: 85-year-old male [facility]argy from jail. Patient was found to be hypoglycemic. Patient was on glimepiride and given his underlying cirrhosis and end-stage renal disease it caused him to have hypoglycemia. Patient was on a glucose drip but that was discontinued. Patient's blood sugars have remained stable after being taken off of that and patient will continue to remain off g limepiride. Patient also had a urinary tract infection which that may have caused him not to eat as much which may have also contributed to his hypoglycemia to smaller degree. Patient would be treated with levofloxacin. Patient is end-stage renal disease and did have dialysis while he was here. Patient does have a history of suspected cirrhosis and did undergo a paracentesis that removed 6.6 L. Patient did receive 50 g of albumin after the paracentesis. Did have lengthy conversation with the patient's and daughter about his long-term prognosis. He is currently full code at this time but with his medical comorbidities I told him that he is high likelihood of decline in the future. Told him that not at this point but in the future if he continues to decline it may be difficult to rally back and that may be appropriate for comfort measures at that point. Patient will be returning to [facility]. Medical Records Data Medical Nutrition Assessment Dietitian: Malnutrition Criteria Met Start: 11/18/21 12:12 Freq: Status: Active Protocol: Document 11/18/21 12:12 (Rec: 11/18/21 12:12 [id number]) Nutrition Malnutrition Evidence of Malnutrition Exists Yes Malnutrition (moderate): Chronic Evidenced By Suboptimal Energy Intake ( Moderate),Physical Changes ( Moderate) Intake Problem Inadequate Oral Intake Etiology r/t chewing difficulties, decreased appetite Signs/Symptoms as evidenced by estimated PO intake meeting <75% of estimated energy needs. Status Active Problem Clinical Problem Chronic Disease or Condition Related Malnutrition Etiology moderate, chronic malnutrition r/t inadequate energy intake w/ increased energy needs d/t cirrhosis, ESRD Signs/Symptoms as evidenced by estimated PO intake meeting <75% of estimated energy needs x 3 months; moderate muscle wasting/fat loss evident per physical exam Status Active Problem Recommendation Dietitian Recommendations/Changes continue cardiac diet- will order cut up meats; consider SENIOR ELECTRICAL DESIGN ENGINEER consult if issues chewing persist; will try 120mL nepro carbsteady ONS 4x/day w/ medpass given malnutrition, noted pt was not accepting of ONS during previous admission. Weight / BMI Weight Weight: 78.471 kg Body Mass Index (BMI) 24.8 ABG / Lab / Microbiology Data Result Diagrams: 11/20/21 05:45 11/20/21 05:45 Laboratory: Laboratory Results - last 24 hr 11/19/21 16:52: POC Glucose 114 H 11/19/21 20:53: POC Glucose 78 11/20/21 05:42: POC Glucose 50 L 11/20/21 05:45: WBC 6.2, RBC 3.24 L, Hgb 10.3 L, Hct 32.1 L, MCV 99.1 H, MCH 31.8, MCHC 32.1 D, RDW Std Deviation 53.7 H, RDW Coeff of Jewels 14.7 H, Plt Count 94 L, MPV 10.6, Immature Gran % (Auto) 0.200, Neut % (Auto) 62.5, Lymph % (Auto) 19.4, [place] % (Auto) 15.7 H, Eos % (Auto) 1.9, Baso % (Auto) 0.3, Absolute Neuts (auto) 3.9, Absolute Lymphs (auto) 1.20, Nucleated RBC % 0 11/20/21 05:45: Sodium 136, Potassium 4.2, Chloride 102, Carbon Dioxide 29.0, Anion Gap 5, BUN 35 H, Creatinine 3.93 H, Estim Creat Clear Calc 14.19, Est GFR (MDRD) Af Amer 19 L, Est GFR (MDRD) Non-Af 16 L, BUN/Creatinine Ratio 8.9 L, Glucose 56 L, Calcium 8.3 L, Total Bilirubin 1.00, AST 44 H, ALT 20, Alkaline Phosphatase 342 H, Total Protein 4.9 L, Albumin 2.5 L, Globulin 2.4, Albumin/Globulin Ratio 1.0 11/20/21 05:45: Cortisol 28.40 H 11/20/21 06:00: POC Glucose 52 L 11/20/21 06:29: POC Glucose 93 11/20/21 12:08: POC Glucose 107 H Microbiology: Microbiology 11/17/21 11:36 Urine, Clean Catch Urine Culture - Final Pseudomonas aeroginosa Meaningful Use Info Meaningful Use Diagnoses (Choose all that apply): None applicable Discharge Plan Admission Admit Date/Time: 11/17/21 13:34 Primary Reason for Your Visit: hypoglycemia. UTI Attending Provider: Gumaro Pugh Primary Care Provider: Arash Mendiola Consulting Providers: Celeste Smith Discharge Orders/Prescriptions Prescriptions: New levofloxacin 500 mg Tablet 500 mg PO Q48@0600 Qty: 0 0RF Rx Instructions: on 11/22, 11/24 and 11/26 menthol-zinc oxide [Calmoseptine] 0.44-20.6 % Ointment 1 applic topical BID Qty: 0 0RF Protocol: *Topical Application Instructions APPLICATION INSTRUCTIONS: apply to affected region midodrine 5 mg Tablet 20 mg PO TIDCM Qty: 0 0RF Nepro Carb Steady 0.08 gram-1.8 kcal/mL Liquid 120 ml PO 4X/DAY Qty: 0 0RF carvedilol 3.125 mg tablet 3.125 mg PO BID Qty: 30 0RF Rx Instructions: must administer with a meal/food. Hold for SBP less than 110. Continued omeprazole 20 mg capsule,delayed release(DR/EC) 20 mg PO DAILY tamsulosin [Flomax] 0.4 mg capsule 0.4 mg PO DAILY aspirin 81 mg Tablet,Delayed Release (Dr/Ec) 81 mg PO DAILY PreserVision AREDS 2,148 mcg-113 mg-45 mg-17.4mg Tablet 2 tab PO BID Changed bumetanide 1 mg tablet 1 mg PO BID Qty: 30 0RF Rx Instructions: hold for SBP < 100 Discontinued carvedilol 12.5 mg tablet 12.5 mg PO BID Rx Instructions: must administer with a meal/food glipizide 5 mg tablet 5 mg PO BID atorvastatin 40 mg tablet 40 tab PO DAILY@0800 Label Comments: TAKE 1 TABLET BY MOUTH ONCE DAILY potassium chloride 10 mEq Capsule, Extended Release 10 meq PO DAILY cefdinir 300 mg Capsule 300 mg PO DAILY Rx Instructions: give daily for 7 days beginning 11/11/21 oxycodone-acetaminophen [Percocet] 5-325 mg Tablet 1 tab PO Q4H PRN (Reason: Pain) doxycycline monohydrate 100 mg capsule 100 mg PO BID Referrals / Follow Up: Elver Lopez DO [Med Staff - Active Staff] - Within 1 Month Arash Mendiola MD [Primary Care Provider] - Within 2 Weeks Disposition Disposition (needs filled in before D/C Order can be placed): Snf Facility Charges/Coding Visit Charges Inpatient E&M: 30712 Disch Hosp
[2021-11-20 17:16] LABS: Bedside Glucose 81 mg/dL (74-106)
--- NOTE | 2021-11-20 17:31 | NURSING ---
Report called to nurse Hardwick for pt to be d/c to [facility].
== END 2021-11-20 18:54 | DRG 638 ==
LOC: ED 12:47 → PCU 14:13
PROVIDERS: Internal Medicine Nephrology; Emergency Provider Emergency Medicine; PCP Family Medicine
DX: E11.649 Type 2 diabetes mellitus with hypoglycemia without coma (principal); I12.0 Hypertensive chronic kidney disease with stage 5 chronic kidney disease or end stage renal disease; I42.9 Cardiomyopathy, unspecified; R18.8 Other ascites; N39.0 Urinary tract infection, site not specified; D69.6 Thrombocytopenia, unspecified; D63.8 Anemia in other chronic diseases classified elsewhere; N18.5 Chronic kidney disease, stage 5; E11.22 Type 2 diabetes mellitus with diabetic chronic kidney disease; K74.60 Unspecified cirrhosis of liver; Z99.2 Dependence on renal dialysis; I25.2 Old myocardial infarction; K21.9 Gastro-esophageal reflux disease without esophagitis; I25.10 Atherosclerotic heart disease of native coronary artery without angina pectoris; I95.0 Idiopathic hypotension; F32.A Depression, unspecified; Z86.73 Personal history of transient ischemic attack (TIA), and cerebral infarction without residual deficits; N40.0 Benign prostatic hyperplasia without lower urinary tract symptoms; Z79.899 Other long term (current) drug therapy; Z79.84 Long term (current) use of oral hypoglycemic drugs; Z79.82 Long term (current) use of aspirin; Z87.891 Personal history of nicotine dependence; Z68.24 Body mass index [BMI] 24.0-24.9, adult; R47.1 Dysarthria and anarthria; Z95.810 Presence of automatic (implantable) cardiac defibrillator; T38.3X5A Adverse effect of insulin and oral hypoglycemic [antidiabetic] drugs, initial encounter; R53.81 Other malaise
CPT/HCPCS: 36415; 49083; 71045; 80048; 80053; 81001; 82140; 82533; 82962; 83605; 85025; 85610; 87077; 87086; 87088; 87184; 87186; 87340; 87811; 90937; 92507; 92523; 97110; 97162; 97166; 97530; 97802; 99285; J7030; P9047; A4216; G0257; Q5106

== ENCOUNTER → 2021-11-24 | Outpatient (CLI) | payer MEDICARE, MEDICAID, SELFPAY ==
--- NOTE | 2021-11-24 12:43 | US_ITS ---
PROCEDURE: Ultrasound guided paracentesis. DATE OF EXAMINATION: 11/24/2021. INDICATION: Male, 86 years old. Ascites. PHYSICIAN: Pantera Sultana M.D. TECHNIQUE: The risks, benefits, and alternatives to the procedure were explained to the patient. The specific risks of bleeding, infection, and damage to bowel were detailed and accepted. Witnessed informed consent was obtained. The abdomen was ultrasonographically surveyed. An appropriate pocket of fluid was identified at the right lower quadrant. The skin were cleaned and prepped in the usual sterile fashion. Using ultrasound guidance, the peritoneal cavity was accessed with a 5-Norwegian paracentesis needle/catheter system. The trocar was removed. A total of 6800 ml of dark deshaun-colored fluid were removed from the peritoneal cavity. The catheter was removed and a sterile dressing was applied. The procedure was well tolerated. US/Paracentesis with US IMPRESSION: Ultrasound guided paracentesis. Electronically Signed: Pantera Sultana MD at 14:07 EDT ,
[2021-11-24] MEDS: Lidocaine 2% (10 ml mdv) 10 ML Vial INFILT (13:00)
[2021-11-24 13:12] VITALS: BP 87/63; BP 92/60; PULSE 54; PULSE 71; RESP 32; TEMP 36.7; O2SAT 100; O2SAT 90
== END | disposition home or self-care (01) ==
PROVIDERS: PCP Family Medicine; Referring Provider Internal Medicine Gastroenterology; Visit Provider Internal Medicine Gastroenterology
DX: K74.60 Unspecified cirrhosis of liver (principal)
CPT/HCPCS: 49083